=== PATIENT | male | born 1940 | race Caucasian/White ===

== ENCOUNTER 2021-08-08 06:31 | Emergency (ER) | payer MEDICARE, OTHER ==
--- NOTE | 2021-08-08 07:46 | CT ---
Head CT Technique: Multiple axial sections through the brain were obtained. Intravenous contrast was not utilized. Reconstructed coronal and sagittal images were obtained. Comparison: No prior intracranial imaging is available. Findings: Retention cyst is noted within the right maxillary sinus measuring 1.9 cm which is felt to be incidental. Ventricles along with basal cisterns and sulci over the convexities are mildly prominent. Minimal diminished density is noted within portions of the periventricular white matter which is most likely due to small vessel ischemic demyelination change. No other abnormal parenchymal densities are seen. No evidence of intracranial hemorrhage is seen. No midline shift or mass-effect is seen. Minimal atherosclerotic change is seen within the vertebral vessels and carotid siphon. Visualized mastoid sinuses are clear. Bone window settings show no acute calvarial abnormality. Small skin lesion is seen within the left upper parietal scalp which is incidental. Impression: 1. Senescent change as noted above. 2. Other findings which are believed to be incidental. 3. No acute intracranial abnormality is appreciated. Diagnostic code #2
--- NOTE | 2021-08-08 07:46 | CT ---
CT cervical spine Technique: Multiple axial sections were obtained from above C1 inferiorly through to the bottom of T3. Reconstructed coronal and sagittal images were obtained. Comparison: No prior cervical spine imaging is available. Findings: Mild disc space narrowing is noted at C2-3. Moderate disc space narrowing is noted at C3-4 and C4-5. Moderate narrowing is seen at C5-6. Severe narrowing is noted at C6-7. Minimal disc space narrowing is noted C7-T1 through T3-4. Scattered anterior endplate osteophytes are noted. Minimal posterior osteophytes are seen. Minimal ligamentum nuchal calcification is seen. Mild diffuse degenerative apophyseal change is present. Degenerative change is also noted between the dens and anterior arch of C1. Moderate left-sided neural foraminal stenosis is noted at C3-4 with severe right-sided neural foraminal stenosis at this level. Moderate right-sided neural foraminal stenosis is noted at C4-5. Moderate to marked left-sided neural foraminal stenosis is noted at C6-7. Degenerative joint space narrowing is noted within both temporomandibular joints. Retention cysts are noted within both maxillary sinuses. Other neural foramina are felt to be patent. No bony central canal stenosis is seen. No acute fracture or abnormal subluxation is seen. Impression: 1. Diffuse degenerative change as noted above. Minimal sinus findings. 2. No acute fracture or abnormal subluxation is seen on CT study of the cervical spine. Diagnostic code #2
--- NOTE | 2021-08-08 07:59 | EDM.PDOC ---
ED HPI GENERAL MEDICAL PROBLEM - General Chief Complaint: Head Injury Stated Complaint: SYNCOPE/HEAD LAC Time Seen by Provider: 08/08/21 07:20 Source of Information: Reports: Patient History Limitations: Reports: No Limitations - History of Present Illness INITIAL COMMENTS - FREE TEXT/NARRATIVE: Patient is an 81-year-old male presenting to the emergency room with a chief complaint of head injury after a fall. Patient states he had a syncopal episode earlier this morning. He describes the episode as feeling lightheaded and falling backwards after using the bathroom in his house. Did not experience any preceding chest pain, palpitations or nausea. He states he passed out again while trying to get up. Reports only minor injury to the head as well as loss of continence of stool. Patient states he has had a syncopal episode before many years ago which he thinks is related to the medication he was taking. Otherwise, patient states he has been sick for the past 1 week. He reports sore throat, cough, fatigue, body aches. Patient did receive Covid vaccine. Prevalence of Covid in the community is high at this period of time. Head Pain Score (Numeric/FACES): 6 - Related Data Allergies Allergy/AdvReac Type Severity Reaction Status Date / Time No Known Allergies Allergy Verified 08/08/21 06:47 Home Meds: Home Meds Benzonatate [Tessalon Perle] 100 mg PO BID #20 capsule 08/08/21 [Rx] Lisinopril/Hydrochlorothiazide [Lisinopril-Hctz 10-12.5 mg Tab] 1 tab PO DAILY 08/08/21 [History] Past Medical History Cardiovascular History: Reports: Hypertension - Past Surgical History GI Surgical History: Reports: Hernia Repair/Other Male Surgical History: Reports: Prostate Biopsy, Other (See Below) Other Male Surgeries/Procedures: kidney biopsy Social & Family History - Tobacco Use Tobacco Use Status *Q: Never Tobacco User - Caffeine Use Caffeine Use: Reports: Coffee - Recreational Drug Use Recreational Drug Use: No ED ROS GENERAL - Review of Systems Review Of Systems: See Below Free Text/Narrative/Comment: In addition to that documented in the HPI above, the additional ROS was obta ined: Constitutional: Denies fevers or chills Eyes: Denies vision changes ENMT: Per HPI CV: Denies chest pain Resp: Denies SOB GI: Denies vomiting or diarrhea : Denies painful urination MSK: Denies recent trauma Skin: Denies new rashes Neuro: Denies new numbness or tingling or weakness Endocrine: Denies unexpected weight loss Heme: Denies bleeding disorders ED EXAM, HEAD INJURY - Physical Exam Exam: See Below Text/Narrative:: I have reviewed the triage vital signs Const: Well nourished, well developed, appears stated age Eyes: Pupils Equal and reactive to light bilaterally, no conjunctival injection Head: Hematoma with no active bleeding to the occiput region. HENT: No signs of trauma or swelling, Neck supple without meningismus CV: Regular Rate Rhythm, Warm, well-perfused extremities RESP: Unlabored respiratory effort GI: soft, non-tender, non-distended, no masses MSK: No gross deformities appreciated Skin: Warm, dry. No rashes Neuro: Alert, production sound mixer II-XII grossly intact. Sensation and motor function of extremities grossly intact. Psych: Appropriate mood and affect. #1 Interpretation EKG Date: 08/08/21 Time: 06:59 Rhythm: NSR Rate (Beats/Min): 69 [place]: Normal P-Wave: Present QRS: Normal ST-T: Other (flattened t-waves anterior leads) QT: Normal #2 Interpretation EKG Date: 08/08/21 Time: 10:50 Rhythm: NSR Rate (Beats/Min): 72 [place]: Normal P-Wave: Present QRS: Normal ST-T: Other (flattened t-waves anterior lead) QT: Normal Comparison: No Change Course - Vital Signs Last Recorded V/S: Last Vital Signs Temp 36.3 C 08/08/21 06:51 Pulse 65 08/08/21 06:51 Resp 19 08/08/21 06:51 BP 127/58 L 08/08/21 06:51 Pulse Ox 92 L 08/08/21 06:51 - Orders/Labs/Meds Orders: Active Orders 24 hr Category Date Time Status Holter Monitor 48 Hours [RC] .PRN Care 08/08/21 12:03 Ordered EKG 12 Lead [EK] Stat Ther 08/08/21 06:53 Ordered Labs: Laboratory Tests 08/08/21 08/08/21 08/08/21 Range/Units 07:00 07:37 07:37 WBC 9.46 H (4.23-9.07) K/mm3 RBC 5.11 (4.63-6.08) M/mm3 Hgb 14.9 (13.7-17.5) gm/dl Hct 44.2 (40.1-51.0) % MCV 86.5 (79.0-92.2) fl MCH 29.2 (25.7-32.2) pg MCHC 33.7 (32.2-35.5) g/dl RDW Std Deviation 39.3 (35.1-43.9) fL Plt Count 184 (163-337) K/mm3 MPV 11.1 (9.4-12.3) fl Neut % (Auto) 87.7 H (34.0-67.9) % Lymph % (Auto) 4.0 L (21.8-53.1) % [place] % (Auto) 7.9 (5.3-12.2) % Eos % (Auto) 0.1 L (0.8-7.0) Baso % (Auto) 0.1 (0.1-1.2) % Neut # (Auto) 8.29 H (1.78-5.38) K/mm3 Lymph # (Auto) 0.38 L (1.32-3.57) K/mm3 Morrison # (Auto) 0.75 (0.30-0.82) K/mm3 Eos # (Auto) 0.01 L (0.04-0.54) K/mm3 Baso # (Auto) 0.01 (0.01-0.08) K/mm3 Sodium 133 L (136-145) mEq/L Potassium 3.9 (3.5-5.1) mEq/L Chloride 100 (98-107) mEq/L Carbon Dioxide 22 (21-32) mEq/L Anion Gap 14.9 (5-15) BUN 23 H (7-18) mg/dL Creatinine 1.8 H (0.7-1.3) mg/dL Est Cr Clr Drug Dosing 31.14 mL/min Estimated GFR (MDRD) 36 (>60) mL/min BUN/Creatinine Ratio 12.8 L (14-18) Glucose 129 H (70-99) mg/dL Calcium 8.3 L (8.5-10.1) mg/dL Total Bilirubin 0.5 (0.2-1.0) mg/dL AST 31 (15-37) U/L ALT 26 (16-63) U/L Alkaline Phosphatase 50 (46-116) U/L Troponin I < 0.017 (0.00-0.056) ng/mL Total Protein 7.0 (6.4-8.2) g/dl Albumin 3.5 (3.4-5.0) g/dl Globulin 3.5 gm/dL Albumin/Globulin Ratio 1.0 (1-2) SARS-CoV-2 RNA (ABISAI) Positive H (NEGATIVE) 08/08/21 Range/Units 11:20 WBC (4.23-9.07) K/mm3 RBC (4.63-6.08) M/mm3 Hgb (13.7-17.5) gm/dl Hct (40.1-51.0) % MCV (79.0-92.2) fl MCH (25.7-32.2) pg MCHC (32.2-35.5) g/dl RDW Std Deviation (35.1-43.9) fL Plt Count (163-337) K/mm3 MPV (9.4-12.3) fl Neut % (Auto) (34.0-67.9) % Lymph % (Auto) (21.8-53.1) % [place] % (Auto) (5.3-12.2) % Eos % (Auto) (0.8-7.0) Baso % (Auto) (0.1-1.2) % Neut # (Auto) (1.78-5.38) K/mm3 Lymph # (Auto) (1.32-3.57) K/mm3 [place] # (Auto) (0.30-0.82) K/mm3 Eos # (Auto) (0.04-0.54) K/mm3 Baso # (Auto) (0.01-0.08) K/mm3 Sodium (136-145) mEq/L Potassium (3.5-5.1) mEq/L Chloride (98-107) mEq/L Carbon Dioxide (21-32) mEq/L Anion Gap (5-15) BUN (7-18) mg/dL Creatinine (0.7-1.3) mg/dL Est Cr Clr Drug Dosing mL/min Estimated GFR (MDRD) (>60) mL/min BUN/Creatinine Ratio (14-18) Glucose (70-99) mg/dL Calcium (8.5-10.1) mg/dL Total Bilirubin (0.2-1.0) mg/dL AST (15-37) U/L ALT (16-63) U/L Alkaline Phosphatase (46-116) U/L Troponin I < 0.017 (0.00-0.056) ng/mL Total Protein (6.4-8.2) g/dl Albumin (3.4-5.0) g/dl Globulin gm/dL Albumin/Globulin Ratio (1-2) SARS-CoV-2 RNA (ABISAI) (NEGATIVE) Meds: Medications Discontinued Medications Generic Name Dose Route Start Last Admin Trade Name Freq PRN Reason Stop Dose Admin Lactated Ringer's 1,000 mls @ 1,000 mls/hr 08/08/21 08:59 08/08/21 09:15 Ringers, Lactated IV 08/08/21 09:58 1,000 mls/hr .BOLUS ONE Administration Departure - Departure Time of Disposition: 08:42 Disposition: Home, Self-Care 01 Clinical Impression: Scalp laceration, COVID-19 - Discharge Information Prescriptions: Benzonatate [Tessalon Perle] 100 mg PO BID #20 capsule Instructions: Head Injury, Adult, [id number] Referrals: Amador Gilbert MD [Primary Care Provider] - Forms: ED Department Discharge Sepsis Event Note (ED) - Evaluation Sepsis Screening Result: No Definite Risk - Focused Exam Vital Signs: Vital Signs Temp Pulse Resp BP Pulse Ox 08/08/21 06:51 36.3 C 65 19 127/58 L 92 L - My Orders Last 24 Hours: My Active Orders 08/08/21 12:03 Holter Monitor 48 Hours [RC] .PRN - Assessment/Plan Last 24 Hours: My Active Orders 08/08/21 12:03 Holter Monitor 48 Hours [RC] .PRN Assessment:: Patient is 81-year-old male presenting to the emergency room with a chief complaint of syncopal episode and head injury. Patient unremarkable ER course. Vital signs in the emergency room were normal. Patient had normal neurologic exam. Syncope sounds to be more orthostatic in nature. Also considered was cardiac etiology, vasovagal and seizure disorder. Laboratory studies EKG and CT of the head were ordered. Work-up unremarkable in the ER. Repeat EKG and troponin are also unchanged. Patient has a [place] syncope risk score of 0. Patient did have a second syncopal episode in the emergency room did not have any additional trauma. This is unwitnessed by staff patient was not on nurse monitoring at this time. I offered patient observation in the hospital and use shared decision-making model document risk and benefits of being discharged versus admission. Patient adamant that he would like to go home and not have any further testing in the emergency room. Patient did receive 1 L IV fluids for dehydration. Instructed follow-up for repeat kidney function check. Return precautions given residual. Patient agrees with plan of care.
[2021-08-08] MEDS ORDERED: Lactated Ringers 1,000 ML IV ONE (08:59)
== END 2021-08-08 13:20 | disposition home or self-care (01) ==
LOC: JD.ED 06:31
DX: S01.01XA Laceration without foreign body of scalp, initial encounter (principal); U07.1 COVID-19; I10 Essential (primary) hypertension; W18.39XA Other fall on same level, initial encounter; Y92.000 Kitchen of unspecified non-institutional (private) residence as the place of occurrence of the external cause
CPT/HCPCS: 12002; 36415; 70450; 72125; 80053; 84484; 85025; 93005; 93225; 93226; 99284; J7120; U0002

== ENCOUNTER 2021-08-11 15:19 | Inpatient (IN) | payer MEDICARE, OTHER ==
[2021-08-11] MEDS ORDERED: Loperamide 2 MG Cap PO ONE (15:51)
[2021-08-11] MEDS ORDERED: Sodium Chloride 0.9% 10 ML Syringe FLUSH PRN (15:51)
--- NOTE | 2021-08-11 15:54 | EDM.PDOC ---
<Siobhan Cary V - Last Filed: 08/11/21 21:32> ED HPI GENERAL MEDICAL PROBLEM - General Chief Complaint: Respiratory Problem Stated Complaint: LOW O2 SATS Time Seen by Provider: 08/11/21 15:47 Source of Information: Reports: Patient, RN Notes Reviewed History Limitations: Reports: No Limitations - History of Present Illness INITIAL COMMENTS - FREE TEXT/NARRATIVE: Patient is an 81-year-old male who presents to the ER for evaluation of his low oxygen saturations with a positive diagnosis of COVID-19. Patient states he has been sick for about 1 week. He has had a cough, diarrhea, shortness of breath, and presents today with low oxygen saturations of 86% on room air. Patient is working a little visibly harder to breathe. He still can get out sentences okay but they are pretty short in nature. Patient states he has no underlying cardiac or lung history. He has been taking his medications as prescribed from his regular care provider, Dr. Gilbert. Patient did get the [employer] vaccine. Headache Pain Score (Numeric/FACES): 4 Generalized Pain Score (Numeric/FACES): 5 - Related Data Allergies Allergy/AdvReac Type Severity Reaction Status Date / Time No Known Allergies Allergy Verified 08/13/21 12:55 Home Meds: Home Meds Benzonatate [Tessalon Perle] 100 mg PO BID #20 capsule 08/08/21 [Rx] Lisinopril/Hydrochlorothiazide [Lisinopril-Hctz 20-12.5 mg Tab] 2 tab PO DAILY 08/13/21 [History] Past Medical History Cardiovascular History: Reports: Hypertension - Past Surgical History GI Surgical History: Reports: Hernia Repair/Other Male Surgical History: Reports: Prostate Biopsy, Other (See Below) Other Male Surgeries/Procedures: kidney biopsy Social & Family History - Caffeine Use Caffeine Use: Reports: Coffee ED ROS GENERAL - Review of Systems Review Of Systems: Comprehensive ROS is negative, except as noted in HPI. ED EXAM, GENERAL - Physical Exam Exam: See Below Exam Limited By: No Limitations General Appearance: Alert, WD/WN, No Apparent Distress Respiratory/Chest: No Respiratory Distress, No Accessory Muscle Use, Chest Non- Tender, Decreased Breath Sounds (bilaterally), Rhonchi (minimal rhonchorous breath sounds bilaterally) Cardiovascular: Normal Peripheral Pulses, Regular Rate, Rhythm, No Edema Peripheral Pulses: 2+: Radial (L), Radial (R) GI/Abdominal: Normal Bowel Sounds, Soft, Non-Tender, No Distention, No Mass Extremities: Normal Inspection, Normal Capillary Refill Neurological: Alert, Oriented, Normal Cognition, No Motor/Sensory Deficits Psychiatric: Normal Affect, Normal Mood Skin Exam: Warm, Dry, Intact, Normal Color, No Rash Course - Re-Assessments/Exams Free Text/Narrative Re-Assessment/Exam: 08/11/21 15:54 Patient presents to the ER for the evaluation of his hypoxia likely secondary to COVID-19. Have ordered multitude of tests, and a chest x-ray along with some oxygen and one dose of loperamide for initial management. Patient states that he has been having quite a bit of diarrhea with this illness as well. 08/11/21 16:20 Was made aware by nursing, that the patient is requiring 6 L via nasal cannula at this time. She states that his O2 sats are hanging around 86 or 87. We will go ahead and watch his oxygenation status at this time, before we go further with any increased oxygen needs. Patient is slightly tachycardic as well. 08/11/21 19:00 Labs have resulted, the patient's white count is mildly elevated at 9.66 with 89% neutrophils on the auto differential. CMP is impressive for an elevated creatinine of 1.8, low GFR 36. CRP markedly elevated at 26.2. Patient's D- dimer is elevated at 1.32. I have called [facility] to see if they would possibly have a hospital bed for this patient as I know we are on diversion at this time. They were going to do some checking and get back to me. Patient has been given remdesivir and dexamethasone for ongoing COVID-19 management. 08/11/21 20:40 I was able to speak with [facility] in [place], and [facility] in [place] and both hospitals are on diversion for any MedSurg transfers or Covid patients at this time. I did call [facility] and they are not excepting lateral transfers, I was made aware that [facility] might have a bed earlier at today's disposal but they have subsequently feel there are beds as well. We are on diversion at this time. So did call the [facility] transfer center to try to help place this patient. They were going to start checking around. 08/11/21 21:32 I did go in to assess the patient again however he is sleeping and we will go ahead and let him sleep at this time. Nursing staff and overnight doctor, Dr. Kapoor is aware that the patient will likely have to stay here overnight for a prolonged ER stay due to having nowhere to place the patient in a bed. Departure - Departure Time of Disposition: 20:33 Disposition: Admitted As Inpatient 66 Condition: Good Clinical Impression: COVID-19, Hypoxia - Discharge Information <Reuben Albright - Last Filed: 08/12/21 13:55> Course - Re-Assessments/Exams Free Text/Narrative Re-Assessment/Exam: 08/12/21 08:30. Have assumed care from Dr Kapoor after change of shift. I agree with hx and exam initially done by Siobhan Cary last evening. Still waiting for a bed to open up for him somewhere. [facility] is working on it. He is doing OK. His sats did drop a little bit during the night so his oxygen was increased to 15 L NRB. 09:45. RT is going to switch him to high flow as soon as she can get a unit sterilized and ready for him. CXR shows mild bilat patchy infiltrates compatable with covid pneumonia. 08/12/21 13:37 He has been eating, drinking fluids. Sats 92 to 93 % 40 L high flow NC, 70 % FIo2. Still waiting for a bed to open up somewhere. 08/12/21 13:55 <Damian Kapoor - Last Filed: 08/14/21 08:57> Course - Vital Signs Last Recorded V/S: Last Vital Signs Temp 97.7 F 08/14/21 03:23 Pulse 66 08/14/21 03:23 Resp 21 H 08/14/21 06:00 BP 124/90 08/14/21 03:23 Pulse Ox 91 L 08/14/21 08:46 - Orders/Labs/Meds Orders: Active Orders 24 hr Category Date Time Status Patient Status [ADT] Routine ADT 08/13/21 11:53 Active Medication Orders Acetaminophen (Acetaminophen 325 Mg Tab) 650 mg PO Q4H PRN PRN Reason: Pain (Mild 1-3)/fever Last Admin: 08/13/21 22:23 Dose: 650 mg Documented by: Admin: 08/13/21 13:29 Dose: 650 mg Documented by: ROSY Albuterol (Albuterol 6.7 Gm Inhaler) 0 gm INH Q2H PRN PRN Reason: SOB/wheezing Albuterol/Ipratropium (Albuterol/Ipratropium 3.0-0.5 Mg/3 Ml Neb Soln) 3 ml NEB QIDRT PRN PRN Reason: Shortness Of Breath/wheezing Last Admin: 08/14/21 08:45 Dose: 3 ml Documented by: Admin: 08/14/21 05:33 Dose: 3 ml Documented by: Admin: 08/13/21 20:16 Dose: 3 ml Documented by: ORLIN Benzonatate (Benzonatate 100 Mg Cap) 100 mg PO TID PRN PRN Reason: Cough Last Admin: 08/13/21 22:24 Dose: 100 mg Documented by: TERESITA Dexamethasone (Dexamethasone 4 Mg Tab) 6 mg PO Q24H [facility] Stop: 08/20/21 17:01 Last Admin: 08/13/21 18:37 Dose: 6 mg Documented by: JERICHO Enoxaparin Sodium (Enoxaparin 40 Mg/0.4 Ml Syringe) 40 mg SUBCUT BEDTIME [facility] Last Admin: 08/13/21 22:25 Dose: 40 mg Documented by: TERESITA Famotidine (Famotidine 20 Mg Tab) 20 mg PO BEDTIME [facility] Last Admin: 08/13/21 22:25 Dose: 20 mg Documented by: TERESITA Guaifenesin (Guaifenesin 600 Mg Tab.Er) 600 mg PO BID [facility] Last Admin: 08/14/21 08:30 Dose: 600 mg Documented by: Admin: 08/13/21 22:24 Dose: 600 mg Documented by: TERESITA Remdesivir 100 mg/ Sodium (Chloride) 100 mls @ 100 mls/hr IV Q24H [facility] Stop: 08/15/21 17:59 Last Admin: 08/13/21 18:37 Dose: 100 mls/hr Documented by: JERICHO Ondansetron HCl (Ondansetron 4 Mg/2 Ml Sdv) 4 mg IV Q6H PRN PRN Reason: Nausea/Vomiting Senna/Docusate Sodium (Docusate Sodium/Sennosides 50-8.6 Mg Tab) 1 tab PO BID PRN PRN Reason: Constipation Last Admin: 08/14/21 08:30 Dose: 1 tab Documented by: KAREEM Sodium Chloride (Sodium Chloride 0.9% 10 Ml Syringe) 10 ml FLUSH ASDIRECTED PRN PRN Reason: Keep Vein Open Last Admin: 08/11/21 16:21 Dose: 10 ml Documented by: KRISTIAN Zinc Sulfate (Zinc Sulfate 220 Mg Cap) 220 mg PO DAILY [facility] Last Admin: 08/14/21 08:30 Dose: 220 mg Documented by: KAREEM Labs: Laboratory Tests 08/11/21 08/11/21 08/11/21 Range/Units 16:17 16:17 16:17 WBC 9.66 H (4.23-9.07) K/mm3 RBC 5.29 (4.63-6.08) M/mm3 Hgb 15.5 (13.7-17.5) gm/dl Hct 45.1 (40.1-51.0) % MCV 85.3 (79.0-92.2) fl MCH 29.3 (25.7-32.2) pg MCHC 34.4 (32.2-35.5) g/dl RDW Std Deviation 39.9 (35.1-43.9) fL Plt Count 206 (163-337) K/mm3 MPV 10.7 (9.4-12.3) fl Neut % (Auto) 89.1 H (34.0-67.9) % Lymph % (Auto) 4.6 L (21.8-53.1) % [place] % (Auto) 6.0 (5.3-12.2) % Eos % (Auto) 0 L (0.8-7.0) Baso % (Auto) 0.1 (0.1-1.2) % Neut # (Auto) 8.61 H (1.78-5.38) K/mm3 Lymph # (Auto) 0.44 L (1.32-3.57) K/mm3 [place] # (Auto) 0.58 (0.30-0.82) K/mm3 Eos # (Auto) 0.00 L (0.04-0.54) K/mm3 Baso # (Auto) 0.01 (0.01-0.08) K/mm3 D-Dimer, Quantitative 1.32 H (0.19-0.50) mg/L Sodium (136-145) mEq/L Potassium (3.5-5.1) mEq/L Chloride (98-107) mEq/L Carbon Dioxide (21-32) mEq/L Anion Gap (5-15) BUN (7-18) mg/dL Creatinine (0.7-1.3) mg/dL Est Cr Clr Drug Dosing mL/min Estimated GFR (MDRD) (>60) mL/min BUN/Creatinine Ratio (14-18) Glucose (70-99) mg/dL Calcium (8.5-10.1) mg/dL Magnesium (1.8-2.4) mg/dL Total Bilirubin (0.2-1.0) mg/dL Direct Bilirubin (0.0-0.2) mg/dl Indirect Bilirubin AST (15-37) U/L ALT (16-63) U/L Alkaline Phosphatase (46-116) U/L C-Reactive Protein 26.2 H* (<1.0) mg/dL Total Protein (6.4-8.2) g/dl Albumin (3.4-5.0) g/dl Globulin gm/dL Albumin/Globulin Ratio (1-2) 08/11/21 08/12/21 Range/Units 16:17 19:08 WBC (4.23-9.07) K/mm3 RBC (4.63-6.08) M/mm3 Hgb (13.7-17.5) gm/dl Hct (40.1-51.0) % MCV (79.0-92.2) fl MCH (25.7-32.2) pg MCHC (32.2-35.5) g/dl RDW Std Deviation (35.1-43.9) fL Plt Count (163-337) K/mm3 MPV (9.4-12.3) fl Neut % (Auto) (34.0-67.9) % Lymph % (Auto) (21.8-53.1) % [place] % (Auto) (5.3-12.2) % Eos % (Auto) (0.8-7.0) Baso % (Auto) (0.1-1.2) % Neut # (Auto) (1.78-5.38) K/mm3 Lymph # (Auto) (1.32-3.57) K/mm3 [place] # (Auto) (0.30-0.82) K/mm3 Eos # (Auto) (0.04-0.54) K/mm3 Baso # (Auto) (0.01-0.08) K/mm3 D-Dimer, Quantitative (0.19-0.50) mg/L Sodium 138 (136-145) mEq/L Potassium 3.3 L (3.5-5.1) mEq/L Chloride 97 L (98-107) mEq/L Carbon Dioxide 28 (21-32) mEq/L Anion Gap 16.3 H (5-15) BUN 37 H (7-18) mg/dL Creatinine 1.8 H (0.7-1.3) mg/dL Est Cr Clr Drug Dosing 31.14 mL/min Estimated GFR (MDRD) 36 (>60) mL/min BUN/Creatinine Ratio 20.6 H (14-18) Glucose 114 H (70-99) mg/dL Calcium 8.0 L (8.5-10.1) mg/dL Magnesium 1.9 (1.8-2.4) mg/dL Total Bilirubin 0.6 0.4 (0.2-1.0) mg/dL Direct Bilirubin 0.10 (0.0-0.2) mg/dl Indirect Bilirubin 0.30 AST 63 H 63 H (15-37) U/L ALT 42 39 (16-63) U/L Alkaline Phosphatase 35 L 36 L (46-116) U/L C-Reactive Protein (<1.0) mg/dL Total Protein 7.1 6.2 L (6.4-8.2) g/dl Albumin 2.9 L 2.4 L (3.4-5.0) g/dl Globulin 4.2 3.8 gm/dL Albumin/Globulin Ratio 0.7 L 0.6 L (1-2) Meds: Medications Generic Name Dose Route Start Last Admin Trade Name Freq PRN Reason Stop Dose Admin Acetaminophen 650 mg 08/13/21 12:44 08/13/21 22:23 Acetaminophen 325 Mg Tab PO 650 mg Q4H PRN Administration Pain (Mild 1-3)/fever Albuterol 0 gm 08/13/21 12:44 Albuterol 6.7 Gm Inhaler INH Q2H PRN SOB/wheezing Albuterol/Ipratropium 3 ml 08/13/21 12:44 08/14/21 08:45 Albuterol/Ipratropium 3.0-0.5 Mg/3 Ml Neb Soln NEB 3 ml QIDRT PRN Administration Shortness Of Breath/wheezing Benzonatate 100 mg 08/13/21 13:14 08/13/21 22:24 Benzonatate 100 Mg Cap PO 100 mg TID PRN Administration Cough Dexamethasone 6 mg 08/13/21 17:00 08/13/21 18:37 Dexamethasone 4 Mg Tab PO 08/20/21 17:01 6 mg Q24H [facility] Administration Enoxaparin Sodium 40 mg 08/13/21 21:00 08/13/21 22:25 Enoxaparin 40 Mg/0.4 Ml Syringe SUBCUT 40 mg BEDTIME [facility] Administration Famotidine 20 mg 08/13/21 21:00 08/13/21 22:25 Famotidine 20 Mg Tab PO 20 mg BEDTIME [facility] Administration Guaifenesin 600 mg 08/13/21 21:00 08/14/21 08:30 Guaifenesin 600 Mg Tab.Er PO 600 mg BID [facility] Administration Remdesivir 100 mg/ Sodium 100 mls @ 100 mls/hr 08/13/21 17:00 08/13/21 18:37 Chloride IV 08/15/21 17:59 100 mls/hr Q24H [facility] Administration Ondansetron HCl 4 mg 08/13/21 12:44 Ondansetron 4 Mg/2 Ml Sdv IV Q6H PRN Nausea/Vomiting Senna/Docusate Sodium 1 tab 08/13/21 12:44 08/14/21 08:30 Docusate Sodium/Sennosides 50-8.6 Mg Tab PO 1 tab BID PRN Administration Constipation Sodium Chloride 10 ml 08/11/21 15:51 08/11/21 16:21 Sodium Chloride 0.9% 10 Ml Syringe FLUSH 10 ml ASDIRECTED PRN Administration Keep Vein Open Zinc Sulfate 220 mg 08/14/21 09:00 08/14/21 08:30 Zinc Sulfate 220 Mg Cap PO 220 mg DAILY [facility] Administration Discontinued Medications Generic Name Dose Route Start Last Admin Trade Name Sunday PRN Reason Stop Dose Admin Albuterol/Ipratropium 3 ml 08/12/21 04:09 08/12/21 04:19 Albuterol/Ipratropium 3.0-0.5 Mg/3 Ml Neb Soln NEB 08/12/21 04:10 3 ml ONETIME ONE Administration Dexamethasone 6 mg 08/11/21 17:12 08/11/21 17:42 Dexamethasone 10 Mg/Ml Sdv IVPUSH 08/11/21 17:13 6 mg ONETIME ONE Administration Dexamethasone 6 mg 08/12/21 19:00 08/12/21 19:51 Dexamethasone 10 Mg/Ml Sdv IVPUSH 08/15/21 19:01 6 mg Q24H [facility] Administration Hydrochlorothiazide 12.5 mg 08/12/21 19:00 08/13/21 09:25 Hydrochlorothiazide 12.5 Mg Cap PO 08/15/21 09:01 12.5 mg DAILY [facility] Administration Remdesivir 200 mg/ Sodium 250 mls @ 250 mls/hr 08/11/21 17:12 08/11/21 17:42 Chloride IV 08/11/21 17:13 250 mls/hr ONETIME ONE Administration Remdesivir 100 mg/ Sodium 100 mls @ 100 mls/hr 08/12/21 19:00 08/12/21 19:52 Chloride IV 08/15/21 19:59 100 mls/hr Q24H [facility] Administration Influenza Virus Vaccine 60 mcg 08/13/21 13:00 Flu Vacc [id number](65up)/Mf59c/Pf 60 Mcg/0.5 Ml Syringe IM 08/13/21 13:01 .ONCE ONE Lisinopril 10 mg 08/12/21 19:00 08/13/21 09:25 Lisinopril 10 Mg Tab PO 08/15/21 09:01 10 mg DAILY [facility] Administration Loperamide HCl 4 mg 08/11/21 15:51 08/11/21 16:20 Loperamide 2 Mg Cap PO 08/11/21 15:52 4 mg ONETIME ONE Administration Polyethylene Glycol 17 gm 08/13/21 17:47 08/13/21 18:36 Polyethylene Glycol 3350 Powder 17 Gm Packet PO 08/13/21 17:48 17 gm ONETIME ONE Administration Potassium Chloride 40 meq 08/13/21 15:00 08/13/21 22:24 Potassium Chloride 20 Meq Tab.Er PO 08/14/21 09:01 40 meq BID [facility]ER Administration - Re-Assessments/Exams Free Text/Narrative Re-Assessment/Exam: 08/12/21 06:39 The patient's oxygen saturations did drop to the low 80s. I had my nurse put him on a nonrebreather and the nasal cannula and he came up to the 90s. It is change of shift Dr Albright to take over. I called the transfer center again and he is still on the list to get a bed. Departure - Departure Time of Disposition: 08:55
[2021-08-11] MEDS ORDERED: REMDESIVIR 200 MG in Sodium Chloride 0.9% 250 ML IV ONE (17:12)
[2021-08-11] MEDS ORDERED: Dexamethasone 10 MG/ML SDV IVPUSH ONE (17:12)
[2021-08-12] MEDS ORDERED: Albuterol/Ipratropium 3.0-0.5 MG/3 ML Neb Soln NEB ONE (04:09)
--- NOTE | 2021-08-12 07:26 | CR ---
Chest: Frontal view of the chest was obtained. Comparison: No prior chest imaging is available. Patchy increased density is seen within the left mid and lower lung. Mild increased density is noted within the right upper lung. Heart size and mediastinum are within normal limits for technique. Bony structures show mild degenerative change within the spine. Osteopenia is noted. Gas is noted within the visualized bowel which is slightly prominent but shows no findings of obstruction. Impression: 1. Patchy areas of increased density within both sides of the chest. Difficult to completely exclude COVID pneumonia. Please correlate with patient's sypmtoms. 2. Other incidental findings are felt to be present as described above. Diagnostic code #3
[2021-08-12] MEDS ORDERED: Dexamethasone 10 MG/ML SDV IVPUSH SCH (19:00)
[2021-08-12] MEDS ORDERED: REMDESIVIR 100 MG in Sodium Chloride 0.9% 100 ML IV SCH (19:00)
[2021-08-12] MEDS: Hydrochlorothiazide 12.5 MG Cap PO SCH (19:50)
[2021-08-12] MEDS: Lisinopril 10 MG Tab PO SCH (19:50)
[2021-08-13] MEDS: Lisinopril 10 MG Tab PO SCH (09:25)
[2021-08-13] MEDS: Hydrochlorothiazide 12.5 MG Cap PO SCH (09:25)
[2021-08-13] MEDS ORDERED: Ondansetron 4 MG/2 ML SDV IV PRN (12:44)
[2021-08-13] MEDS ORDERED: Albuterol 6.7 GM Inhaler INH PRN (12:44)
--- NOTE | 2021-08-13 12:54 | PCM.HP.2 ---
H&P History of Present Illness - General Date of Service: 08/13/21 Admit Problem/Dx: Admission Diagnosis/Problem Admission Diagnosis/Problem Hypoxia Source of Information: Patient, Old Records, Provider, RN, RN Notes Reviewed History Limitations: Reports: No Limitations - History of Present Illness Initial Comments - Free Text/Narative: This is an 81-year-old male who presented to ED on 08/11/2021 with low oxygen saturations and known positive COVID-19 diagnosis. Patient reports he been sick for about a week and noted cough, diarrhea, shortness of breath, and oxygen sat urations of 86% on room air. He did receive the Pfizer vaccine. In the ED temp was noted to be 96.5. Pulse is 102. Respirations 32. Blood pressure 120/72. Pulse ox is 94% on oxygen. He was requiring 6 L with saturations of 86 to 87%. Labs are obtained showing a WBC of 9.66. Hemoglobin 15.5. Platelet count 206,000. Neutrophils are elevated 89.1%. D-dimer is 1.32. CRP is 26.2. Sodium is 138. Potassium is low at 3.3. Chloride 97. Carbon dioxide 28. Anion gap is 16.3. BUN is 37. Creatinine 1.8. GFR is 36. Glucose is 114. Calcium is 8.0. Magnesium is 1.9. Total bilirubin 0.6. AST is 63, ALT 42, alkaline phosphatase 35. Albumin is 2.9. Total protein 7.1. He is given dexamethasone and remdesivir in the ED. Patient was requiring admission and unfortunately our facility and every other facility in the state were on diversion. Patient remained for approximately 2 days in the emergency room with worsening saturations. He was shifted to a nonrebreather and ultimately started on high flow oxygen. Chest x-ray is obtained showing patchy areas of increased density within both sides of the chest. Difficult to completely exclude Covid pneumonia. Please correlate with patient's symptoms. Other findings are noted to be incidental. Ultimately a bed in our facility does open up and the patient is admitted to the medical surgical floor inpatient with telemetry for further management of his COVID-19 pneumonia and hypoxia. He carries a history of hypertension. He is a full code. His PCP is Dr. Lugo. Headache Pain Score (Numeric/FACES): 4 Generalized Pain Score (Numeric/FACES): 5 - Related Data Allergies/Adverse Reactions: Allergies Allergy/AdvReac Type Severity Reaction Status Date / Time No Known Allergies Allergy Verified 08/13/21 12:55 Home Medications: Home Meds Benzonatate [Tessalon Perle] 100 mg PO BID #20 capsule 08/08/21 [Rx] Lisinopril/Hydrochlorothiazide [Lisinopril-Hctz 20-12.5 mg Tab] 2 tab PO DAILY 08/13/21 [History] Past Medical History Cardiovascular History: Reports: Hypertension - Infectious Disease History Infectious Disease History: Reports: Novel Coronavirus - Past Surgical History GI Surgical History: Reports: Hernia Repair/Other Male Surgical History: Reports: Prostate Biopsy, Other (See Below) Other Male Surgeries/Procedures: kidney biopsy Social & Family History - Tobacco Use Tobacco Use Status *Q: Never Tobacco User Second Hand Smoke Exposure: No - Caffeine Use Caffeine Use: Reports: Coffee - Recreational Drug Use Recreational Drug Use: No H&P Review of Systems - Review of Systems: Review Of Systems: See Below General: Reports: Malaise, Weakness, Fatigue. Denies: Fever, Chills HEENT: Reports: No Symptoms. Denies: Headaches, Sore Throat Pulmonary: Reports: Shortness of Breath, Wheezing, Cough, Sputum. Denies: Pleuritic Chest Pain Cardiovascular: Reports: Dyspnea on Exertion. Denies: Chest Pain, Palpitations, Edema Gastrointestinal: Reports: Diarrhea. Denies: Abdominal Pain, Constipation, Nausea, Vomiting Genitourinary: Reports: No Symptoms. Denies: Pain Musculoskeletal: Reports: No Symptoms Skin: Reports: No Symptoms. Denies: Cyanosis Psychiatric: Reports: No Symptoms. Denies: Confusion Neurological: Reports: Difficulty Walking, Weakness. Denies: Confusion, Dizziness, Headache, Numbness, Pre-Existing Deficit, Syncope, Tingling, Gait Disturbance Hematologic/Lymphatic: Reports: No Symptoms Immunologic: Reports: No Symptoms Exam - Exam Exam: See Below - Vital Signs Vital Signs: Last Vital Signs Temp 96.5 F L 08/12/21 09:50 Pulse 102 H 08/12/21 09:50 Resp 32 H 08/12/21 09:50 BP 117/85 08/13/21 09:25 Pulse Ox 95 08/12/21 16:00 Weight: 191 lb 8 oz - Exam Quality Assessment: Supplemental Oxygen, DVT Prophylaxis. No: Urinary Catheter General: Alert, Oriented, Cooperative, Mild Distress (looks ill ) HEENT: Conjunctiva Clear, EACs Clear, Mucosa Moist & Grill, Posterior Pharynx Clear Neck: Supple, Trachea Midline Lungs: Normal Respiratory Effort, Decreased Breath Sounds, Rhonchi, Wheezing Cardiovascular: Regular Rate, Regular Rhythm GI/Abdominal Exam: Normal Bowel Sounds, Soft, Non-Tender, No Distention (Male) Exam: Deferred Rectal (Males) Exam: Deferred Back Exam: Normal Inspection, Full Range of Motion Extremities: Normal Inspection, Normal Range of Motion, Non-Tender, No Pedal Edema, Normal Capillary Refill Peripheral Pulses: 2+: Radial (L), Radial (R), Dorsalis Pedis (L), Dorsalis Pedis (R) Skin: Warm, Dry, Intact Neurological: Cranial Nerves Intact (Grossly ) Neuro Extensive - Mental Status: Alert, Oriented x3, Normal Mood/Affect - Patient Data Lab Results Last 24 hrs: Laboratory Results - last 24 hr 08/12/21 Range/Units 19:08 Total Bilirubin 0.4 (0.2-1.0) mg/dL Direct Bilirubin 0.10 (0.0-0.2) mg/dl Indirect Bilirubin 0.30 AST 63 H (15-37) U/L ALT 39 (16-63) U/L Alkaline Phosphatase 36 L (46-116) U/L Total Protein 6.2 L (6.4-8.2) g/dl Albumin 2.4 L (3.4-5.0) g/dl Globulin 3.8 gm/dL Albumin/Globulin Ratio 0.6 L (1-2) Result Diagrams: 08/13/21 13:16 08/13/21 13:16 Sepsis Event Note - Focused Exam Vital Signs: Vital Signs BP 08/13/21 09:25 117/85 - Problem List (1) COVID-19 SNOMED Code(s): 610231162 ICD Code: U07.1 - COVID-19 Status: Acute Priority: High Current Visit: Yes (2) Hypoxia SNOMED Code(s): 940483738 ICD Code: R09.02 - HYPOXEMIA Status: Acute Priority: High Current Visit: Yes (3) Scalp laceration SNOMED Code(s): 077860852 ICD Code: S01.01XA - LACERATION WITHOUT FOREIGN BODY OF SCALP, INITIAL ENCOUNTER Status: Chronic Priority: Medium Current Visit: Yes (4) Hypokalemia SNOMED Code(s): 89529421 ICD Code: E87.6 - HYPOKALEMIA Status: Acute Priority: High Current Visit: Yes (5) HTN (hypertension) SNOMED Code(s): 85089725 ICD Code: I10 - ESSENTIAL (PRIMARY) HYPERTENSION Status: Acute Priority: High Current Visit: Yes Qualifiers: Hypertension type: unspecified Qualified Code(s): I10 - Essential (primary) hypertension (6) Elevated d-dimer SNOMED Code(s): 789484298 ICD Code: R79.89 - OTHER SPECIFIED ABNORMAL FINDINGS OF BLOOD CHEMISTRY Status: Acute Priority: High Current Visit: Yes (7) Elevated C-reactive protein SNOMED Code(s): 641375326920778 ICD Code: R79.82 - ELEVATED C-REACTIVE PROTEIN (CRP) Status: Acute Priority: High Current Visit: Yes (8) COVID-19 vaccine series completed SNOMED Code(s): 549843132, 105510334 ICD Code: Z92.29 - PERSONAL HISTORY OF OTHER DRUG THERAPY Status: Chronic Priority: Medium Current Visit: Yes Problem List Initiated/Reviewed/Updated: Yes Orders Last 24hrs: Active Orders 24 hr Category Date Time Status Patient Status [ADT] Routine ADT 08/13/21 11:53 Active Cardiac Monitoring [RC] CONTINUOUS Care 08/13/21 12:45 Ordered Height and Weight [RC] DAILY Care 08/13/21 12:44 Ordered Intake and Output [RC] DAILY Care 08/13/21 12:45 Ordered Nurse Communication: Isolation [RC] ASDIRECTED Care 08/13/21 12:47 Ordered Oxygen Therapy [RC] ASDIRECTED Care 08/13/21 12:44 Ordered Positioning, Patient [RC] ASDIRECTED Care 08/13/21 12:50 Ordered Pulse Oximetry [RC] CONTINUOUS Care 08/13/21 12:45 Ordered RT Aerosol Therapy [RC] ASDIRECTED Care 08/13/21 12:46 Ordered RT Incentive Spirometry [RC] ASDIRECTED Care 08/13/21 12:44 Ordered Up With Assistance [RC] ASDIRECTED Care 08/13/21 12:45 Ordered Vaccine to be Administered/Admin Charge [RC] ASDIRECTED Care 08/13/21 12:45 Active Vital Signs [RC] Q6H Care 08/13/21 12:44 Ordered Consult to Case Management/County Director [CONS] Cons 08/13/21 12:44 Ordered Routine OT Evaluation and Treatment [CONS] Routine Cons 08/13/21 12:46 Ordered PT Evaluation and Treatment [CONS] Routine Cons 08/13/21 12:46 Ordered Respiratory Care Assess and Treatment [CONS] Routine Cons 08/13/21 12:46 Ordered Heart Healthy Diet [DIET] Diet 08/13/21 Dinner Ordered C-REACTIVE PROTEIN [CHEM] AM Lab 08/14/21 05:11 Ordered C-REACTIVE PROTEIN [CHEM] AM Lab 08/15/21 05:11 Ordered C-REACTIVE PROTEIN [CHEM] AM Lab 08/16/21 05:11 Ordered C-REACTIVE PROTEIN [CHEM] AM Lab 08/17/21 05:11 Ordered C-REACTIVE PROTEIN [CHEM] Routine Lab 08/13/21 12:48 Ordered CBC WITH AUTO DIFF [HEME] AM Lab 08/14/21 05:11 Ordered CBC WITH AUTO DIFF [HEME] AM Lab 08/15/21 05:11 Ordered CBC WITH AUTO DIFF [HEME] AM Lab 08/16/21 05:11 Ordered CBC WITH AUTO DIFF [HEME] AM Lab 08/17/21 05:11 Ordered CBC WITH AUTO DIFF [HEME] Routine Lab 08/13/21 12:48 Ordered CMP [COMPREHENSIVE METABOLIC PN,CMP] [CHEM] Routine Lab 08/13/21 12:52 Ordered COMPREHENSIVE METABOLIC PN,CMP [CHEM] AM Lab 08/14/21 05:11 Ordered COMPREHENSIVE METABOLIC PN,CMP [CHEM] AM Lab 08/15/21 05:11 Ordered COMPREHENSIVE METABOLIC PN,CMP [CHEM] AM Lab 08/16/21 05:11 Ordered COMPREHENSIVE METABOLIC PN,CMP [CHEM] AM Lab 08/17/21 05:11 Ordered DD [D-DIMER QUANTITATIVE] [COAG] Q48H Lab 08/14/21 05:11 Ordered DD [D-DIMER QUANTITATIVE] [COAG] Q48H Lab 08/16/21 05:11 Ordered DD [D-DIMER QUANTITATIVE] [COAG] Q48H Lab 08/18/21 05:11 Ordered MAGNESIUM [CHEM] AM Lab 08/14/21 05:11 Ordered MAGNESIUM [CHEM] AM Lab 08/15/21 05:11 Ordered MAGNESIUM [CHEM] AM Lab 08/16/21 05:11 Ordered MAGNESIUM [CHEM] AM Lab 08/17/21 05:11 Ordered MAGNESIUM [CHEM] Routine Lab 08/13/21 12:48 Ordered PROCALCITONIN [REF] Routine Lab 08/13/21 12:49 Ordered Acetaminophen [TylenoL] Med 08/13/21 12:44 Ordered 650 mg PO Q4H PRN Albuterol [Proventil HFA] Med 08/13/21 12:44 Ordered See Dose Instructions INH Q2H PRN Albuterol/Ipratropium [DuoNeb 3.0-0.5 MG/3 ML] Med 08/13/21 12:44 Ordered 3 ml NEB QIDRT PRN Docusate Sodium/Sennosides [Senna Plus] Med 08/13/21 12:44 Ordered 1 tab PO BID PRN Enoxaparin [Lovenox] Med 08/13/21 09:00 Ordered 40 mg SUBCUT DAILY FLU Vacc [id number](65UP)/MF59C/PF [Fluad Quad [id number] Med 08/13/21 13:00 Once SYRINGE] 60 mcg IM .ONCE ONE Famotidine [Pepcid] Med 08/13/21 21:00 Ordered 20 mg PO BID Ondansetron [Zofran] Med 08/13/21 12:44 Ordered 4 mg IV Q6H PRN Remdesivir 100 mg Med 08/13/21 16:50 Ordered Sodium Chloride 0.9% [Normal Saline] 100 ml IV Q24H Zinc Sulfate [Zincate] Med 08/14/21 09:00 Ordered 220 mg PO DAILY dexAMETHasone Med 08/13/21 16:50 Ordered 6 mg PO DAILY Isolation [COMM] Routine Oth 08/13/21 12:44 Ordered RT Oxygen High Flow [RESPCARE] Urgent Oth 08/12/21 12:36 Active Medication Orders Acetaminophen (Acetaminophen 325 Mg Tab) 650 mg PO Q4H PRN PRN Reason: Pain (Mild 1-3)/fever Albuterol (Albuterol 6.7 Gm Inhaler) 0 gm INH Q2H PRN PRN Reason: SOB/wheezing Albuterol/Ipratropium (Albuterol/Ipratropium 3.0-0.5 Mg/3 Ml Neb Soln) 3 ml NEB QIDRT PRN PRN Reason: Shortness Of Breath/wheezing Dexamethasone (Dexamethasone 4 Mg Tab) 6 mg PO DAILY SANDER Stop: 08/20/21 09:01 Enoxaparin Sodium (Enoxaparin 40 Mg/0.4 Ml Syringe) 40 mg SUBCUT BEDTIME [facility] Famotidine (Famotidine 20 Mg Tab) 20 mg PO BEDTIME [facility] Remdesivir 100 mg/ Sodium (Chloride) 100 mls @ 100 mls/hr IV Q24H [facility] Stop: 08/15/21 17:49 Influenza Virus Vaccine (Flu Vacc [id number](65up)/Mf59c/Pf 60 Mcg/0.5 Ml Syringe) 60 mcg IM .ONCE ONE Stop: 08/13/21 13:01 Ondansetron HCl (Ondansetron 4 Mg/2 Ml Sdv) 4 mg IV Q6H PRN PRN Reason: Nausea/Vomiting Senna/Docusate Sodium (Docusate Sodium/Sennosides 50-8.6 Mg Tab) 1 tab PO BID PRN PRN Reason: Constipation Sodium Chloride (Sodium Chloride 0.9% 10 Ml Syringe) 10 ml FLUSH ASDIRECTED PRN PRN Reason: Keep Vein Open Last Admin: 08/11/21 16:21 Dose: 10 ml Documented by: KRISTIAN Zinc Sulfate (Zinc Sulfate 220 Mg Cap) 220 mg PO DAILY [facility] Assessment/Plan Comment:: Admission assessment - 08/13/2021 * This is an 81-year-old male who presented to ED on 08/11/2021 with low oxygen saturations and known positive COVID-19 diagnosis * History of hypertension * Reports he been sick for about a week and noted cough, diarrhea, shortness of breath, and oxygen saturations of 86% on room air. * He did receive the Pfizer vaccine. * He was requiring 6 L with saturations of 86 to 87%. * Labs are obtained: * WBC of 9.66. * Hemoglobin 15.5. * Platelet count 206,000. * Neutrophils are elevated 89.1%. * D-dimer is 1.32. * CRP is 26.2. * Sodium is 138. * Potassium is low at 3.3. * Chloride 97. * Carbon dioxide 28. * Anion gap is 16.3. * BUN is 37. Creatinine 1.8. GFR is 36. * Glucose is 114. * Calcium is 8.0. * Magnesium is 1.9. * Total bilirubin 0.6. * AST is 63, ALT 42, alkaline phosphatase 35. * Albumin is 2.9. * Total protein 7.1. * He is given dexamethasone and remdesivir in the ED. * Chest x-ray is obtained showing patchy areas of increased density within both sides of the chest. Difficult to completely exclude Covid pneumonia. Please correlate with patient's symptoms. Other findings are noted to be incidental. * Patient was requiring admission and unfortunately our facility and every other facility in the state were on diversion. * Remained for approximately 2 days in the emergency room with worsening saturations. * He was shifted to a nonrebreather and ultimately started on high flow oxygen. * Ultimately a bed in our facility does open up and the patient is admitted to the medical surgical floor inpatient with telemetry for further management of his COVID-19 pneumonia and hypoxia. PLAN: COVID-19 Hypoxia Elevated d-dimer Elevated C-reactive protein COVID-19 vaccine series completed. * Airborne/contact precautions * As needed DuoNebs * As needed albuterol MDI * RT consultation * I-S * O2 as needed with goal saturations of 88 to 95% * Continue high flow as directed * 600 mg Mucinex twice daily * As needed Tylenol * Telemetry * Continuous pulse oximetry * Prone whenever able * Ambulate around the room * Lovenox 40 mg daily * Daily labs * Every 48 hour D-dimer * Famotidine 20 mg twice daily * Zinc supplementation * Check procalcitonin * 6 mg dexamethasone daily for 10 total days * Remdesivir daily for 5 total days * As needed Tessalon Perles for cough * PT/OT evaluation * Case management/social work for discharge planning Scalp laceration * From prior fall on 08/08/2021 * Remove in 7 to 10 days from initial injury Hypokalemia * Supplement * Recheck labs HTN (hypertension) * Hold home BP meds * Monitor blood pressure Code status: Full code PCP: Dr. Gilbert DVT prophylaxis: Lovenox Social: Patient resides in a home in [place] with his . Disposition: Admitted to the floor on telemetry for management of COVID-19 pneumonia with hypoxia. Length of stay likely 4 to 5 days pending improvement. - Mortality Measure Prognosis:: Good
[2021-08-13] MEDS ORDERED: FLU Vacc QS2021(65UP)/MF59C/PF 60 MCG/0.5 ML Syringe IM ONE (13:00)
[2021-08-13] MEDS ORDERED: Benzonatate 100 MG Cap PO PRN (13:14)
[2021-08-13] MEDS: Acetaminophen 325 MG Tab PO PRN ×2 (13:29→22:23)
[2021-08-13] MEDS: Potassium Chloride 20 MEQ Tab.ER PO SCH ×2 (15:54→22:24)
[2021-08-13] MEDS ORDERED: Polyethylene Glycol 3350 Powder 17 GM Packet PO ONE (17:47)
[2021-08-13] MEDS: REMDESIVIR 100 MG in Sodium Chloride 0.9% 100 ML IV SCH (18:37)
[2021-08-13] MEDS: Dexamethasone 4 MG Tab PO SCH (18:37)
[2021-08-13] MEDS: Albuterol/Ipratropium 3.0-0.5 MG/3 ML Neb Soln NEB PRN (20:16)
[2021-08-13] MEDS: guaiFENesin 600 MG Tab.ER PO SCH (22:24)
[2021-08-13] MEDS: Enoxaparin 40 MG/0.4 ML Syringe SUBCUT SCH (22:25)
[2021-08-13] MEDS: Famotidine 20 MG Tab PO SCH (22:25)
[2021-08-14] MEDS: Albuterol/Ipratropium 3.0-0.5 MG/3 ML Neb Soln NEB PRN ×3 (05:33→21:03)
[2021-08-14] MEDS: Zinc Sulfate 220 MG Cap PO SCH (08:30)
[2021-08-14] MEDS: guaiFENesin 600 MG Tab.ER PO SCH ×2 (08:30→22:02)
--- NOTE | 2021-08-14 08:46 | PCM.PN ---
- General Info Date of Service: 08/14/21 Admission Dx/Problem (Free Text): Admission Diagnosis/Problem Admission Diagnosis/Problem Hypoxia Functional Status: Reports: Pain Controlled, Tolerating Diet, Ambulating, Urinating, Incentive Spirometry, Other (Acapella ). Denies: New Symptoms - Review of Systems General: Reports: Weakness, Fatigue, Malaise. Denies: Fever, Chills HEENT: Reports: No Symptoms. Denies: Headaches, Sore Throat Pulmonary: Reports: Shortness of Breath, Cough. Denies: Pleuritic Chest Pain, Sputum, Wheezing Cardiovascular: Reports: Dyspnea on Exertion. Denies: Chest Pain, Palpitations, Edema Gastrointestinal: Reports: No Symptoms. Denies: Abdominal Pain, Constipation, Diarrhea, Nausea, Vomiting Genitourinary: Reports: No Symptoms. Denies: Pain Musculoskeletal: Reports: No Symptoms Skin: Reports: No Symptoms. Denies: Cyanosis Neurological: Reports: Difficulty Walking, Weakness. Denies: Confusion, Dizziness, Headache, Numbness, Pre-Existing Deficit, Seizure, Syncope, Tingling, Gait Disturbance Psychiatric: Reports: No Symptoms - Patient Data Vitals - Most Recent: Last Vital Signs Temp 97.7 F 08/14/21 03:23 Pulse 66 08/14/21 03:23 Resp 21 H 08/14/21 06:00 BP 124/90 08/14/21 03:23 Pulse Ox 94 L 08/14/21 05:34 Weight - Most Recent: 190 lb 14.4 oz I&O - Last 24 Hours: Intake & Output 08/13/21 08/14/21 08/14/21 22:59 06:59 14:59 Intake Total 900 400 Output Total 550 800 Balance 350 -400 Lab Results Last 24 Hours: Laboratory Results - last 24 hr 08/13/21 08/13/21 08/13/21 Range/Units 13:16 13:16 13:16 WBC 10.66 H (4.23-9.07) K/mm3 RBC 5.24 (4.63-6.08) M/mm3 Hgb 15.1 (13.7-17.5) gm/dl Hct 44.6 (40.1-51.0) % MCV 85.1 (79.0-92.2) fl MCH 28.8 (25.7-32.2) pg MCHC 33.9 (32.2-35.5) g/dl RDW Std Deviation 40.0 (35.1-43.9) fL Plt Count 190 (163-337) K/mm3 MPV 10.7 (9.4-12.3) fl Neut % (Auto) 90.4 H (34.0-67.9) % Lymph % (Auto) 2.6 L (21.8-53.1) % Leslie % (Auto) 6.6 (5.3-12.2) % Eos % (Auto) 0 L (0.8-7.0) Baso % (Auto) 0.1 (0.1-1.2) % Neut # (Auto) 9.64 H (1.78-5.38) K/mm3 Lymph # (Auto) 0.28 L (1.32-3.57) K/mm3 Leslie # (Auto) 0.70 (0.30-0.82) K/mm3 Eos # (Auto) 0.00 L (0.04-0.54) K/mm3 Baso # (Auto) 0.01 (0.01-0.08) K/mm3 Manual Slide Review Abnormal smear D-Dimer, Quantitative 0.87 H (0.19-0.50) mg/L Sodium 137 (136-145) mEq/L Potassium 2.9 L (3.5-5.1) mEq/L Chloride 99 (98-107) mEq/L Carbon Dioxide 28 (21-32) mEq/L Anion Gap 12.9 (5-15) BUN 39 H (7-18) mg/dL Creatinine 1.4 H (0.7-1.3) mg/dL Est Cr Clr Drug Dosing 40.04 mL/min Estimated GFR (MDRD) 49 (>60) mL/min BUN/Creatinine Ratio 27.9 H (14-18) Glucose 196 H (70-99) mg/dL Calcium 8.2 L (8.5-10.1) mg/dL Magnesium 2.0 (1.8-2.4) mg/dL Total Bilirubin 0.5 (0.2-1.0) mg/dL AST 64 H (15-37) U/L ALT 43 (16-63) U/L Alkaline Phosphatase 36 L (46-116) U/L C-Reactive Protein 12.4 H* (<1.0) mg/dL Total Protein 6.0 L (6.4-8.2) g/dl Albumin 2.4 L (3.4-5.0) g/dl Globulin 3.6 gm/dL Albumin/Globulin Ratio 0.7 L (1-2) 08/14/21 08/14/21 Range/Units 06:23 06:23 WBC 11.82 H (4.23-9.07) K/mm3 RBC 5.06 (4.63-6.08) M/mm3 Hgb 14.6 (13.7-17.5) gm/dl Hct 43.1 (40.1-51.0) % MCV 85.2 (79.0-92.2) fl MCH 28.9 (25.7-32.2) pg MCHC 33.9 (32.2-35.5) g/dl RDW Std Deviation 39.8 (35.1-43.9) fL Plt Count 208 (163-337) K/mm3 MPV 10.9 (9.4-12.3) fl Neut % (Auto) 91.8 H (34.0-67.9) % Lymph % (Auto) 2.2 L (21.8-53.1) % Leslie % (Auto) 5.5 (5.3-12.2) % Eos % (Auto) 0 L (0.8-7.0) Baso % (Auto) 0.1 (0.1-1.2) % Neut # (Auto) 10.85 H (1.78-5.38) K/mm3 Lymph # (Auto) 0.26 L (1.32-3.57) K/mm3 Leslie # (Auto) 0.65 (0.30-0.82) K/mm3 Eos # (Auto) 0.00 L (0.04-0.54) K/mm3 Baso # (Auto) 0.01 (0.01-0.08) K/mm3 Manual Slide Review Abnormal smear D-Dimer, Quantitative (0.19-0.50) mg/L Sodium 135 L (136-145) mEq/L Potassium 4.0 (3.5-5.1) mEq/L Chloride 101 (98-107) mEq/L Carbon Dioxide 26 (21-32) mEq/L Anion Gap 12.0 (5-15) BUN 35 H (7-18) mg/dL Creatinine 1.2 (0.7-1.3) mg/dL Est Cr Clr Drug Dosing 46.71 mL/min Estimated GFR (MDRD) 58 (>60) mL/min BUN/Creatinine Ratio 29.2 H (14-18) Glucose 147 H (70-99) mg/dL Calcium 7.9 L (8.5-10.1) mg/dL Magnesium 1.9 (1.8-2.4) mg/dL Total Bilirubin 0.5 (0.2-1.0) mg/dL AST 58 H (15-37) U/L ALT 45 (16-63) U/L Alkaline Phosphatase 37 L (46-116) U/L C-Reactive Protein 8.3 H* (<1.0) mg/dL Total Protein 5.7 L (6.4-8.2) g/dl Albumin 2.3 L (3.4-5.0) g/dl Globulin 3.4 gm/dL Albumin/Globulin Ratio 0.7 L (1-2) Med Orders - Current: Current Medications Acetaminophen (Acetaminophen 325 Mg Tab) 650 mg PO Q4H PRN PRN Reason: Pain (Mild 1-3)/fever Last Admin: 08/13/21 22:23 Dose: 650 mg Documented by: Albuterol (Albuterol 6.7 Gm Inhaler) 0 gm INH Q2H PRN PRN Reason: SOB/wheezing Albuterol/Ipratropium (Albuterol/Ipratropium 3.0-0.5 Mg/3 Ml Neb Soln) 3 ml NEB QIDRT PRN PRN Reason: Shortness Of Breath/wheezing Last Admin: 08/14/21 08:45 Dose: 3 ml Documented by: Benzonatate (Benzonatate 100 Mg Cap) 100 mg PO TID PRN PRN Reason: Cough Last Admin: 08/13/21 22:24 Dose: 100 mg Documented by: Dexamethasone (Dexamethasone 4 Mg Tab) 6 mg PO Q24H [facility]ER Stop: 08/20/21 17:01 Last Admin: 08/13/21 18:37 Dose: 6 mg Documented by: Enoxaparin Sodium (Enoxaparin 40 Mg/0.4 Ml Syringe) 40 mg SUBCUT BEDTIME [facility] Last Admin: 08/13/21 22:25 Dose: 40 mg Documented by: Famotidine (Famotidine 20 Mg Tab) 20 mg PO BEDTIME [facility] Last Admin: 08/13/21 22:25 Dose: 20 mg Documented by: Guaifenesin (Guaifenesin 600 Mg Tab.Er) 600 mg PO BID [facility] Last Admin: 08/14/21 08:30 Dose: 600 mg Documented by: Remdesivir 100 mg/ Sodium (Chloride) 100 mls @ 100 mls/hr IV Q24H [facility] Stop: 08/15/21 17:59 Last Admin: 08/13/21 18:37 Dose: 100 mls/hr Documented by: Ondansetron HCl (Ondansetron 4 Mg/2 Ml Sdv) 4 mg IV Q6H PRN PRN Reason: Nausea/Vomiting Senna/Docusate Sodium (Docusate Sodium/Sennosides 50-8.6 Mg Tab) 1 tab PO BID PRN PRN Reason: Constipation Last Admin: 08/14/21 08:30 Dose: 1 tab Documented by: Sodium Chloride (Sodium Chloride 0.9% 10 Ml Syringe) 10 ml FLUSH ASDIRECTED PRN PRN Reason: Keep Vein Open Last Admin: 08/11/21 16:21 Dose: 10 ml Documented by: Zinc Sulfate (Zinc Sulfate 220 Mg Cap) 220 mg PO DAILY [facility] Last Admin: 08/14/21 08:30 Dose: 220 mg Documented by: Discontinued Medications Albuterol/Ipratropium (Albuterol/Ipratropium 3.0-0.5 Mg/3 Ml Neb Soln) 3 ml NEB ONETIME ONE Stop: 08/12/21 04:10 Last Admin: 08/12/21 04:19 Dose: 3 ml Documented by: Dexamethasone (Dexamethasone 10 Mg/Ml Sdv) 6 mg IVPUSH ONETIME ONE Stop: 08/11/21 17:13 Last Admin: 08/11/21 17:42 Dose: 6 mg Documented by: Dexamethasone (Dexamethasone 10 Mg/Ml Sdv) 6 mg IVPUSH Q24H [facility] Stop: 08/15/21 19:01 Last Admin: 08/12/21 19:51 Dose: 6 mg Documented by: Hydrochlorothiazide (Hydrochlorothiazide 12.5 Mg Cap) 12.5 mg PO DAILY [facility] Stop: 08/15/21 09:01 Last Admin: 08/13/21 09:25 Dose: 12.5 mg Documented by: Remdesivir 200 mg/ Sodium (Chloride) 250 mls @ 250 mls/hr IV ONETIME ONE Stop: 08/11/21 17:13 Last Admin: 08/11/21 17:42 Dose: 250 mls/hr Documented by: Remdesivir 100 mg/ Sodium (Chloride) 100 mls @ 100 mls/hr IV Q24H [facility] Stop: 08/15/21 19:59 Last Admin: 08/12/21 19:52 Dose: 100 mls/hr Documented by: Influenza Virus Vaccine (Flu Vacc Cd3395(65up)/Mf59c/Pf 60 Mcg/0.5 Ml Syringe) 60 mcg IM .ONCE ONE Stop: 08/13/21 13:01 Lisinopril (Lisinopril 10 Mg Tab) 10 mg PO DAILY [facility] Stop: 08/15/21 09:01 Last Admin: 08/13/21 09:25 Dose: 10 mg Documented by: Loperamide HCl (Loperamide 2 Mg Cap) 4 mg PO ONETIME ONE Stop: 08/11/21 15:52 Last Admin: 08/11/21 16:20 Dose: 4 mg Documented by: Polyethylene Glycol (Polyethylene Glycol 3350 Powder 17 Gm Packet) 17 gm PO ONETIME ONE Stop: 08/13/21 17:48 Last Admin: 08/13/21 18:36 Dose: 17 gm Documented by: Potassium Chloride (Potassium Chloride 20 Meq Tab.Er) 40 meq PO BID [facility] Stop: 08/14/21 09:01 Last Admin: 08/13/21 22:24 Dose: 40 meq Documented by: - Exam Quality Assessment: Supplemental Oxygen (High flow 60 L with FiO2 of 90%), DVT Prophylaxis. No: Urine Catheter General: Alert, Oriented, Cooperative, No Acute Distress HEENT: Pupils Equal, Pupils Reactive, Mucous Membr. Moist/[place] Neck: Supple, Trachea Midline Lungs: Normal Respiratory Effort, Decreased Breath Sounds, Crackles, Rhonchi. No: Wheezing GI/Abdominal Exam: Normal Bowel Sounds, Soft, Non-Tender, No Distention (Male) Exam: Deferred Back Exam: Normal Inspection, Full Range of Motion Extremities: Normal Inspection, Normal Range of Motion, Non-Tender, No Pedal Edema, Normal Capillary Refill Skin: Warm, Dry, Intact Neurological: No New Focal Deficit Psy/Mental Status: Alert, Normal Affect, Normal Mood - Patient Data Lab Results Last 24 hrs: Laboratory Results - last 24 hr 08/13/21 08/13/21 08/13/21 Range/Units 13:16 13:16 13:16 WBC 10.66 H (4.23-9.07) K/mm3 RBC 5.24 (4.63-6.08) M/mm3 Hgb 15.1 (13.7-17.5) gm/dl Hct 44.6 (40.1-51.0) % MCV 85.1 (79.0-92.2) fl MCH 28.8 (25.7-32.2) pg MCHC 33.9 (32.2-35.5) g/dl RDW Std Deviation 40.0 (35.1-43.9) fL Plt Count 190 (163-337) K/mm3 MPV 10.7 (9.4-12.3) fl Neut % (Auto) 90.4 H (34.0-67.9) % Lymph % (Auto) 2.6 L (21.8-53.1) % Leslie % (Auto) 6.6 (5.3-12.2) % Eos % (Auto) 0 L (0.8-7.0) Baso % (Auto) 0.1 (0.1-1.2) % Neut # (Auto) 9.64 H (1.78-5.38) K/mm3 Lymph # (Auto) 0.28 L (1.32-3.57) K/mm3 Leslie # (Auto) 0.70 (0.30-0.82) K/mm3 Eos # (Auto) 0.00 L (0.04-0.54) K/mm3 Baso # (Auto) 0.01 (0.01-0.08) K/mm3 Manual Slide Review Abnormal smear D-Dimer, Quantitative 0.87 H (0.19-0.50) mg/L Sodium 137 (136-145) mEq/L Potassium 2.9 L (3.5-5.1) mEq/L Chloride 99 (98-107) mEq/L Carbon Dioxide 28 (21-32) mEq/L Anion Gap 12.9 (5-15) BUN 39 H (7-18) mg/dL Creatinine 1.4 H (0.7-1.3) mg/dL Est Cr Clr Drug Dosing 40.04 mL/min Estimated GFR (MDRD) 49 (>60) mL/min BUN/Creatinine Ratio 27.9 H (14-18) Glucose 196 H (70-99) mg/dL Calcium 8.2 L (8.5-10.1) mg/dL Magnesium 2.0 (1.8-2.4) mg/dL Total Bilirubin 0.5 (0.2-1.0) mg/dL AST 64 H (15-37) U/L ALT 43 (16-63) U/L Alkaline Phosphatase 36 L (46-116) U/L C-Reactive Protein 12.4 H* (<1.0) mg/dL Total Protein 6.0 L (6.4-8.2) g/dl Albumin 2.4 L (3.4-5.0) g/dl Globulin 3.6 gm/dL Albumin/Globulin Ratio 0.7 L (1-2) 08/14/21 08/14/21 Range/Units 06:23 06:23 WBC 11.82 H (4.23-9.07) K/mm3 RBC 5.06 (4.63-6.08) M/mm3 Hgb 14.6 (13.7-17.5) gm/dl Hct 43.1 (40.1-51.0) % MCV 85.2 (79.0-92.2) fl MCH 28.9 (25.7-32.2) pg MCHC 33.9 (32.2-35.5) g/dl RDW Std Deviation 39.8 (35.1-43.9) fL Plt Count 208 (163-337) K/mm3 MPV 10.9 (9.4-12.3) fl Neut % (Auto) 91.8 H (34.0-67.9) % Lymph % (Auto) 2.2 L (21.8-53.1) % Leslie % (Auto) 5.5 (5.3-12.2) % Eos % (Auto) 0 L (0.8-7.0) Baso % (Auto) 0.1 (0.1-1.2) % Neut # (Auto) 10.85 H (1.78-5.38) K/mm3 Lymph # (Auto) 0.26 L (1.32-3.57) K/mm3 Leslie # (Auto) 0.65 (0.30-0.82) K/mm3 Eos # (Auto) 0.00 L (0.04-0.54) K/mm3 Baso # (Auto) 0.01 (0.01-0.08) K/mm3 Manual Slide Review Abnormal smear D-Dimer, Quantitative (0.19-0.50) mg/L Sodium 135 L (136-145) mEq/L Potassium 4.0 (3.5-5.1) mEq/L Chloride 101 (98-107) mEq/L Carbon Dioxide 26 (21-32) mEq/L Anion Gap 12.0 (5-15) BUN 35 H (7-18) mg/dL Creatinine 1.2 (0.7-1.3) mg/dL Est Cr Clr Drug Dosing 46.71 mL/min Estimated GFR (MDRD) 58 (>60) mL/min BUN/Creatinine Ratio 29.2 H (14-18) Glucose 147 H (70-99) mg/dL Calcium 7.9 L (8.5-10.1) mg/dL Magnesium 1.9 (1.8-2.4) mg/dL Total Bilirubin 0.5 (0.2-1.0) mg/dL AST 58 H (15-37) U/L ALT 45 (16-63) U/L Alkaline Phosphatase 37 L (46-116) U/L C-Reactive Protein 8.3 H* (<1.0) mg/dL Total Protein 5.7 L (6.4-8.2) g/dl Albumin 2.3 L (3.4-5.0) g/dl Globulin 3.4 gm/dL Albumin/Globulin Ratio 0.7 L (1-2) Result Diagrams: 08/14/21 06:23 08/14/21 06:23 Sepsis Event Note - Evaluation Sepsis Screening Result: Sepsis Risk - Focused Exam Vital Signs: Vital Signs Temp Pulse Resp BP Pulse Ox Pulse Ox 08/14/21 06:00 21 H 08/14/21 05:34 94 L 08/14/21 05:00 26 H 08/14/21 04:00 34 H 88 L 08/14/21 03:23 97.7 F 66 22 H 124/90 86 L 08/14/21 03:00 32 H 08/14/21 02:00 22 H 08/14/21 01:00 17 08/14/21 00:00 21 H 08/13/21 23:23 98.2 F 105 H 26 H 150/68 H 91 L 08/13/21 23:00 18 08/13/21 22:42 19 08/13/21 22:25 88 L 08/13/21 22:00 23 H 08/13/21 21:51 97.9 F 85 26 H 123/87 89 L 08/13/21 21:00 28 H - Problem List & Annotations (1) COVID-19 SNOMED Code(s): 270645561 Code(s): U07.1 - COVID-19 Status: Acute Priority: High Current Visit: Yes (2) Hypoxia SNOMED Code(s): 807935841 Code(s): R09.02 - HYPOXEMIA Status: Acute Priority: High Current Visit: Yes (3) Scalp laceration SNOMED Code(s): 331656653 Code(s): S01.01XA - LACERATION WITHOUT FOREIGN BODY OF SCALP, INITIAL ENCOUNTER Status: Chronic Priority: Medium Current Visit: Yes (4) Hypokalemia SNOMED Code(s): 25828212 Code(s): E87.6 - HYPOKALEMIA Status: Resolved Priority: High Current Visit: Yes (5) HTN (hypertension) SNOMED Code(s): 60680204 Code(s): I10 - ESSENTIAL (PRIMARY) HYPERTENSION Status: Acute Priority: High Current Visit: Yes Qualifiers: Hypertension type: unspecified Qualified Code(s): I10 - Essential (primary) hypertension (6) Elevated d-dimer SNOMED Code(s): 374443421 Code(s): R79.89 - OTHER SPECIFIED ABNORMAL FINDINGS OF BLOOD CHEMISTRY Status: Acute Priority: High Current Visit: Yes (7) Elevated C-reactive protein SNOMED Code(s): 456919584780081 Code(s): R79.82 - ELEVATED C-REACTIVE PROTEIN (CRP) Status: Acute Priority: High Current Visit: Yes (8) COVID-19 vaccine series completed SNOMED Code(s): 936502386, 100284658 Code(s): Z92.29 - PERSONAL HISTORY OF OTHER DRUG THERAPY Status: Chronic Priority: Medium Current Visit: Yes - Problem List Review Problem List Initiated/Reviewed/Updated: Yes - My Orders Last 24 Hours: My Active Orders 08/13/21 12:44 Height and Weight [RC] 06 Oxygen Therapy [RC] ASDIRECTED RT Incentive Spirometry [RC] ASDIRECTED Vital Signs [RC] ,,16,22 Consult to Case Management/Sewing Machine Maintenance Mechanic [CONS] Routine Acetaminophen [TylenoL] 650 mg PO Q4H PRN Albuterol [Proventil HFA] See Dose Instructions INH Q2H PRN Albuterol/Ipratropium [DuoNeb 3.0-0.5 MG/3 ML] 3 ml NEB QIDRT PRN Docusate Sodium/Sennosides [Senna Plus] 1 tab PO BID PRN Ondansetron [Zofran] 4 mg IV Q6H PRN Isolation [COMM] Routine 08/13/21 12:45 Cardiac Monitoring [RC] CONTINUOUS Intake and Output [RC] Pulse Oximetry [RC] CONTINUOUS Up With Assistance [RC] ASDIRECTED 08/13/21 12:46 RT Aerosol Therapy [RC] ASDIRECTED OT Evaluation and Treatment [CONS] Routine PT Evaluation and Treatment [CONS] Routine Respiratory Care Assess and Treatment [CONS] Routine 08/13/21 12:50 Positioning, Patient [RC] ASDIRECTED 08/13/21 13:14 Benzonatate [Tessalon Perles] 100 mg PO TID PRN 08/13/21 13:16 PROCALCITONIN [REF] Routine 08/13/21 Dinner Heart Healthy Diet [DIET] Remdesivir 100 mg Sodium Chloride 0.9% [Normal Saline] 100 ml IV Q24H dexAMETHasone 6 mg PO Q24H 08/13/21 21:00 Enoxaparin [Lovenox] 40 mg SUBCUT BEDTIME Famotidine [Pepcid] 20 mg PO BEDTIME guaiFENesin [Mucinex] 600 mg PO BID 08/14/21 09:00 Zinc Sulfate [Zincate] 220 mg PO DAILY 08/15/21 05:11 C-REACTIVE PROTEIN [CHEM] AM CBC WITH AUTO DIFF [HEME] AM COMPREHENSIVE METABOLIC PN,CMP [CHEM] AM MAGNESIUM [CHEM] AM 08/15/21 13:15 DD [D-DIMER QUANTITATIVE] [COAG] Q48H 08/16/21 05:11 C-REACTIVE PROTEIN [CHEM] AM CBC WITH AUTO DIFF [HEME] AM COMPREHENSIVE METABOLIC PN,CMP [CHEM] AM MAGNESIUM [CHEM] AM 08/17/21 05:11 C-REACTIVE PROTEIN [CHEM] AM CBC WITH AUTO DIFF [HEME] AM COMPREHENSIVE METABOLIC PN,CMP [CHEM] AM MAGNESIUM [CHEM] AM 08/17/21 13:15 DD [D-DIMER QUANTITATIVE] [COAG] Q48H 08/19/21 13:15 DD [D-DIMER QUANTITATIVE] [COAG] Q48H - Assessment Assessment:: Admission assessment - 08/13/2021 * This is an 81-year-old male who presented to ED on 08/11/2021 with low oxygen saturations and known positive COVID-19 diagnosis * History of hypertension * Reports he been sick for about a week and noted cough, diarrhea, shortness of breath, and oxygen saturations of 86% on room air. * He did receive the Pfizer vaccine. * He was requiring 6 L with saturations of 86 to 87%. * Labs are obtained: * WBC of 9.66. * Hemoglobin 15.5. * Platelet count 206,000. * Neutrophils are elevated 89.1%. * D-dimer is 1.32. * CRP is 26.2. * Sodium is 138. * Potassium is low at 3.3. * Chloride 97. * Carbon dioxide 28. * Anion gap is 16.3. * BUN is 37. Creatinine 1.8. GFR is 36. * Glucose is 114. * Calcium is 8.0. * Magnesium is 1.9. * Total bilirubin 0.6. * AST is 63, ALT 42, alkaline phosphatase 35. * Albumin is 2.9. * Total protein 7.1. * He is given dexamethasone and remdesivir in the ED. * Chest x-ray is obtained showing patchy areas of increased density within both sides of the chest. Difficult to completely exclude Covid pneumonia. Please correlate with patient's symptoms. Other findings are noted to be incidental. * Patient was requiring admission and unfortunately our facility and every other facility in the state were on diversion. * Remained for approximately 2 days in the emergency room with worsening saturations. * He was shifted to a nonrebreather and ultimately started on high flow oxygen. * Ultimately a bed in our facility does open up and the patient is admitted to the medical surgical floor inpatient with telemetry for further management of his COVID-19 pneumonia and hypoxia. 08/14/2021 This is an 81-year-old male admitted to the floor for worsening Covid pneumonia symptoms. He continues on dexamethasone and remdesivir. Today we discussed baricitinib and he agreed to proceed with this treatment. He remains on high flow oxygen at 60 L with an FiO2 of 90%. Labs today show WBC of 11.82. Hemoglobin is 14.6. Platelet 208,000. Neutrophils are elevated at 91.8%. Sodium is 135. Potassium is up to 4.0. Chloride is 101. Carbon dioxide 26. Anion gap is 12.0. BUN is 35. Creatinine is improved to 1.2. GFR is up to 58. Glucose is 147. Calcium 7.9. Magnesium 1.9. Total bilirubin 0.5. AST is 58, ALT 45, alkaline phosphatase 37. CRP is 8.3. Protein 5.7. Albumin is down to 2.3. Procalcitonin from yesterday returned at 0.81. Overall lab values have improved. We will continue current treatment plan. Unknown length of stay due to severity of symptoms. - Plan Plan:: COVID-19 Hypoxia Elevated d-dimer Elevated C-reactive protein COVID-19 vaccine series completed. * Airborne/contact precautions * As needed DuoNebs * As needed albuterol MDI * RT consultation * I-S * O2 as needed with goal saturations of 88 to 95% * Continue high flow as directed * 600 mg Mucinex twice daily * As needed Tylenol * Telemetry * Continuous pulse oximetry * Prone whenever able * Ambulate around the room * Lovenox 40 mg daily * Daily labs * Every 48 hour D-dimer * Famotidine 20 mg twice daily * Zinc supplementation * Check procalcitonin * 6 mg dexamethasone daily for 10 total days * Remdesivir daily for 5 total days * As needed Tessalon Perles for cough * PT/OT evaluation * Case management/social work for discharge planning * Start baricitinib today for a total of 14 days or until discharge Scalp laceration * From prior fall on 08/08/2021 * Remove in 7 to 10 days from initial injury Hypokalemia, resolved * Monitor labs HTN (hypertension) * Hold home BP meds * Monitor blood pressure Code status: Full code PCP: Dr. Gilbert DVT prophylaxis: Lovenox Social: Patient resides in a home in [place] with his . Disposition: Admitted to the floor on telemetry for management of COVID-19 pneumonia with hypoxia. Length of stay likely 4 to 5 days pending improvement. I spoke with Chon to provide information about baricitinib. I offered the "fax sheet for patients and parents/caregivers, for baricitinib" to read and review. I stated that therapy has been approved by an emergency use authorization process and has not fully been FDA reviewed or approved. I shared potential risks from the therapy including increased risk for serious infections, anaphylaxis, and reaction to medication. I discussed there are other potential treatment options that are currently not FDA approved to treat COVID-19. Offered opportunity to ask questions and all questions were answered. Chon voiced understanding and agreed to proceed with treatment.
[2021-08-14] MEDS: Dexamethasone 4 MG Tab PO SCH (15:59)
[2021-08-14] MEDS: REMDESIVIR 100 MG in Sodium Chloride 0.9% 100 ML IV SCH (16:00)
[2021-08-14] MEDS: Famotidine 20 MG Tab PO SCH (22:02)
[2021-08-14] MEDS: Enoxaparin 40 MG/0.4 ML Syringe SUBCUT SCH (22:02)
[2021-08-15] MEDS: Albuterol/Ipratropium 3.0-0.5 MG/3 ML Neb Soln NEB PRN ×3 (04:27→15:29)
[2021-08-15] MEDS: Zinc Sulfate 220 MG Cap PO SCH (08:29)
[2021-08-15] MEDS: guaiFENesin 600 MG Tab.ER PO SCH ×2 (08:29→20:30)
[2021-08-15] MEDS: Enoxaparin 100 MG/1 ML Syringe SUBCUT SCH ×2 (10:03→20:30)
--- NOTE | 2021-08-15 15:50 | PCM.PN ---
- General Info Date of Service: 08/15/21 Admission Dx/Problem (Free Text): Admission Diagnosis/Problem Admission Diagnosis/Problem Hypoxia Subjective Update: This is an 81-year-old male who presented to ED on 08/11/2021 with low oxygen saturations and known positive COVID-19 diagnosis. Still complains of shortness of breath. She is on high flow 60 L or nonrebreather D-dimer 136 Creatinine 1.1, GFR > 60 CRP trending down to 6.0 - Review of Systems General: Reports: No Symptoms HEENT: Reports: No Symptoms Pulmonary: Reports: Shortness of Breath Cardiovascular: Reports: No Symptoms Gastrointestinal: Reports: No Symptoms Genitourinary: Reports: No Symptoms Musculoskeletal: Reports: No Symptoms Skin: Reports: No Symptoms Neurological: Reports: No Symptoms Psychiatric: Reports: No Symptoms - Patient Data Vitals - Most Recent: Last Vital Signs Temp 36.9 C 08/14/21 22:00 Pulse 97 08/15/21 02:44 Resp 30 H 08/15/21 04:00 BP 131/79 08/15/21 02:44 Pulse Ox 90 L 08/15/21 15:29 Weight - Most Recent: 86.364 kg I&O - Last 24 Hours: Intake & Output 08/15/21 08/15/21 08/15/21 06:59 14:59 22:59 Output Total 650 Balance -650 Lab Results Last 24 Hours: Laboratory Results - last 24 hr 08/15/21 08/15/21 08/15/21 Range/Units 07:50 07:50 07:50 WBC 14.51 H (4.23-9.07) K/mm3 RBC 5.11 (4.63-6.08) M/mm3 Hgb 14.7 (13.7-17.5) gm/dl Hct 43.6 (40.1-51.0) % MCV 85.3 (79.0-92.2) fl MCH 28.8 (25.7-32.2) pg MCHC 33.7 (32.2-35.5) g/dl RDW Std Deviation 40.1 (35.1-43.9) fL Plt Count 235 (163-337) K/mm3 MPV 11.0 (9.4-12.3) fl Neut % (Auto) 90.7 H (34.0-67.9) % Lymph % (Auto) 2.3 L (21.8-53.1) % [place] % (Auto) 6.3 (5.3-12.2) % Eos % (Auto) 0 L (0.8-7.0) Baso % (Auto) 0.1 (0.1-1.2) % Neut # (Auto) 13.16 H (1.78-5.38) K/mm3 Lymph # (Auto) 0.33 L (1.32-3.57) K/mm3 [place] # (Auto) 0.92 H (0.30-0.82) K/mm3 Eos # (Auto) 0.00 L (0.04-0.54) K/mm3 Baso # (Auto) 0.01 (0.01-0.08) K/mm3 Manual Slide Review Normal smear D-Dimer, Quantitative 1.36 H (0.19-0.50) mg/L Sodium 135 L (136-145) mEq/L Potassium 4.2 (3.5-5.1) mEq/L Chloride 101 (98-107) mEq/L Carbon Dioxide 25 (21-32) mEq/L Anion Gap 13.2 (5-15) BUN 28 H (7-18) mg/dL Creatinine 1.1 (0.7-1.3) mg/dL Est Cr Clr Drug Dosing 50.95 mL/min Estimated GFR (MDRD) > 60 (>60) mL/min BUN/Creatinine Ratio 25.5 H (14-18) Glucose 132 H (70-99) mg/dL Calcium 8.1 L (8.5-10.1) mg/dL Magnesium 1.9 (1.8-2.4) mg/dL Total Bilirubin 0.9 (0.2-1.0) mg/dL AST 54 H (15-37) U/L ALT 46 (16-63) U/L Alkaline Phosphatase 46 (46-116) U/L C-Reactive Protein 6.0 H* (<1.0) mg/dL Total Protein 6.1 L (6.4-8.2) g/dl Albumin 2.5 L (3.4-5.0) g/dl Globulin 3.6 gm/dL Albumin/Globulin Ratio 0.7 L (1-2) Med Orders - Current: Current Medications Acetaminophen (Acetaminophen 325 Mg Tab) 650 mg PO Q4H PRN PRN Reason: Pain (Mild 1-3)/fever Last Admin: 08/13/21 22:23 Dose: 650 mg Documented by: Albuterol (Albuterol 6.7 Gm Inhaler) 0 gm INH Q2H PRN PRN Reason: SOB/wheezing Albuterol/Ipratropium (Albuterol/Ipratropium 3.0-0.5 Mg/3 Ml Neb Soln) 3 ml NEB QIDRT PRN PRN Reason: Shortness Of Breath/wheezing Last Admin: 08/15/21 15:29 Dose: 3 ml Documented by: Baricitinib (Baricitinib 2 Mg Tab) 2 mg PO DAILY [facility] Stop: 08/27/21 09:01 Last Admin: 08/15/21 08:29 Dose: 2 mg Documented by: Benzonatate (Benzonatate 100 Mg Cap) 100 mg PO TID PRN PRN Reason: Cough Last Admin: 08/13/21 22:24 Dose: 100 mg Documented by: Dexamethasone (Dexamethasone 4 Mg Tab) 6 mg PO Q24H [facility] Stop: 08/20/21 17:01 Last Admin: 08/14/21 15:59 Dose: 6 mg Documented by: Enoxaparin Sodium (Enoxaparin 100 Mg/1 Ml Syringe) 90 mg SUBCUT BID [facility] Last Admin: 08/15/21 10:03 Dose: 90 mg Documented by: Famotidine (Famotidine 20 Mg Tab) 20 mg PO BEDTIME [facility] Last Admin: 08/14/21 22:02 Dose: 20 mg Documented by: Guaifenesin (Guaifenesin 600 Mg Tab.Er) 600 mg PO BID [facility] Last Admin: 08/15/21 08:29 Dose: 600 mg Documented by: Remdesivir 100 mg/ Sodium (Chloride) 100 mls @ 100 mls/hr IV Q24H [facility] Stop: 08/15/21 17:59 Last Admin: 08/14/21 16:00 Dose: 100 mls/hr Documented by: Ondansetron HCl (Ondansetron 4 Mg/2 Ml Sdv) 4 mg IV Q6H PRN PRN Reason: Nausea/Vomiting Senna/Docusate Sodium (Docusate Sodium/Sennosides 50-8.6 Mg Tab) 1 tab PO BID PRN PRN Reason: Constipation Last Admin: 08/14/21 08:30 Dose: 1 tab Documented by: Sodium Chloride (Sodium Chloride 0.9% 10 Ml Syringe) 10 ml FLUSH ASDIRECTED PRN PRN Reason: Keep Vein Open Last Admin: 08/11/21 16:21 Dose: 10 ml Documented by: Zinc Sulfate (Zinc Sulfate 220 Mg Cap) 220 mg PO DAILY [facility] Last Admin: 08/15/21 08:29 Dose: 220 mg Documented by: Discontinued Medications Albuterol/Ipratropium (Albuterol/Ipratropium 3.0-0.5 Mg/3 Ml Neb Soln) 3 ml NEB ONETIME ONE Stop: 08/12/21 04:10 Last Admin: 08/12/21 04:19 Dose: 3 ml Documented by: Dexamethasone (Dexamethasone 10 Mg/Ml Sdv) 6 mg IVPUSH ONETIME ONE Stop: 08/11/21 17:13 Last Admin: 08/11/21 17:42 Dose: 6 mg Documented by: Dexamethasone (Dexamethasone 10 Mg/Ml Sdv) 6 mg IVPUSH Q24H [facility] Stop: 08/15/21 19:01 Last Admin: 08/12/21 19:51 Dose: 6 mg Documented by: Enoxaparin Sodium (Enoxaparin 40 Mg/0.4 Ml Syringe) 40 mg SUBCUT BEDTIME [facility] Last Admin: 08/14/21 22:02 Dose: 40 mg Documented by: Hydrochlorothiazide (Hydrochlorothiazide 12.5 Mg Cap) 12.5 mg PO DAILY [facility] Stop: 08/15/21 09:01 Last Admin: 08/13/21 09:25 Dose: 12.5 mg Documented by: Remdesivir 200 mg/ Sodium (Chloride) 250 mls @ 250 mls/hr IV ONETIME ONE Stop: 08/11/21 17:13 Last Admin: 08/11/21 17:42 Dose: 250 mls/hr Documented by: Remdesivir 100 mg/ Sodium (Chloride) 100 mls @ 100 mls/hr IV Q24H [facility] Stop: 08/15/21 19:59 Last Admin: 08/12/21 19:52 Dose: 100 mls/hr Documented by: Influenza Virus Vaccine (Flu Vacc Ml5686(65up)/Mf59c/Pf 60 Mcg/0.5 Ml Syringe) 60 mcg IM .ONCE ONE Stop: 08/13/21 13:01 Lisinopril (Lisinopril 10 Mg Tab) 10 mg PO DAILY [facility] Stop: 08/15/21 09:01 Last Admin: 08/13/21 09:25 Dose: 10 mg Documented by: Loperamide HCl (Loperamide 2 Mg Cap) 4 mg PO ONETIME ONE Stop: 08/11/21 15:52 Last Admin: 08/11/21 16:20 Dose: 4 mg Documented by: Polyethylene Glycol (Polyethylene Glycol 3350 Powder 17 Gm Packet) 17 gm PO ONETIME ONE Stop: 08/13/21 17:48 Last Admin: 08/13/21 18:36 Dose: 17 gm Documented by: Potassium Chloride (Potassium Chloride 20 Meq Tab.Er) 40 meq PO BID [facility] Stop: 08/14/21 09:01 Last Admin: 08/13/21 22:24 Dose: 40 meq Documented by: - Exam Physical Findings Comments:: General: Alert, Oriented, Cooperative, No Acute Distress HEENT: Pupils Equal, Pupils Reactive, Mucous Membr. Moist/[place] Neck: Supple, Trachea Midline Lungs: Normal Respiratory Effort, Decreased Breath Sounds, Crackles, Rhonchi. No: Wheezing GI/Abdominal Exam: Normal Bowel Sounds, Soft, Non-Tender, No Distention (Male) Exam: Deferred Back Exam: Normal Inspection, Full Range of Motion Extremities: Normal Inspection, Normal Range of Motion, Non-Tender, No Pedal Edema, Normal Capillary Refill Skin: Warm, Dry, Intact Neurological: No New Focal Deficit Psy/Mental Status: Alert, Normal Affect, Normal Mood - Patient Data Lab Results Last 24 hrs: Laboratory Results - last 24 hr 08/15/21 08/15/21 08/15/21 Range/Units 07:50 07:50 07:50 WBC 14.51 H (4.23-9.07) K/mm3 RBC 5.11 (4.63-6.08) M/mm3 Hgb 14.7 (13.7-17.5) gm/dl Hct 43.6 (40.1-51.0) % MCV 85.3 (79.0-92.2) fl MCH 28.8 (25.7-32.2) pg MCHC 33.7 (32.2-35.5) g/dl RDW Std Deviation 40.1 (35.1-43.9) fL Plt Count 235 (163-337) K/mm3 MPV 11.0 (9.4-12.3) fl Neut % (Auto) 90.7 H (34.0-67.9) % Lymph % (Auto) 2.3 L (21.8-53.1) % [place] % (Auto) 6.3 (5.3-12.2) % Eos % (Auto) 0 L (0.8-7.0) Baso % (Auto) 0.1 (0.1-1.2) % Neut # (Auto) 13.16 H (1.78-5.38) K/mm3 Lymph # (Auto) 0.33 L (1.32-3.57) K/mm3 [place] # (Auto) 0.92 H (0.30-0.82) K/mm3 Eos # (Auto) 0.00 L (0.04-0.54) K/mm3 Baso # (Auto) 0.01 (0.01-0.08) K/mm3 Manual Slide Review Normal smear D-Dimer, Quantitative 1.36 H (0.19-0.50) mg/L Sodium 135 L (136-145) mEq/L Potassium 4.2 (3.5-5.1) mEq/L Chloride 101 (98-107) mEq/L Carbon Dioxide 25 (21-32) mEq/L Anion Gap 13.2 (5-15) BUN 28 H (7-18) mg/dL Creatinine 1.1 (0.7-1.3) mg/dL Est Cr Clr Drug Dosing 50.95 mL/min Estimated GFR (MDRD) > 60 (>60) mL/min BUN/Creatinine Ratio 25.5 H (14-18) Glucose 132 H (70-99) mg/dL Calcium 8.1 L (8.5-10.1) mg/dL Magnesium 1.9 (1.8-2.4) mg/dL Total Bilirubin 0.9 (0.2-1.0) mg/dL AST 54 H (15-37) U/L ALT 46 (16-63) U/L Alkaline Phosphatase 46 (46-116) U/L C-Reactive Protein 6.0 H* (<1.0) mg/dL Total Protein 6.1 L (6.4-8.2) g/dl Albumin 2.5 L (3.4-5.0) g/dl Globulin 3.6 gm/dL Albumin/Globulin Ratio 0.7 L (1-2) Result Diagrams: 08/15/21 07:50 08/15/21 07:50 Sepsis Event Note - Evaluation Sepsis Screening Result: Sepsis Risk - Focused Exam Vital Signs: Vital Signs Resp Pulse Ox Pulse Ox Pulse Ox 08/15/21 15:29 90 L 90 L 08/15/21 11:53 90 L 90 L 08/15/21 09:42 89 L 89 L 08/15/21 04:38 90 L 08/15/21 04:00 30 H 78 L - Problem List Review Problem List Initiated/Reviewed/Updated: Yes - My Orders Last 24 Hours: My Active Orders 08/15/21 09:15 Enoxaparin [Lovenox] 90 mg SUBCUT BID 08/15/21 09:27 BIPAP [RT BiPAP/CPAP] [RC] ASDIRECTED - Assessment Assessment:: Admission assessment - 08/13/2021 * This is an 81-year-old male who presented to ED on 08/11/2021 with low oxygen saturations and known positive COVID-19 diagnosis * History of hypertension * Reports he been sick for about a week and noted cough, diarrhea, shortness of breath, and oxygen saturations of 86% on room air. * He did receive the Pfizer vaccine. * He was requiring 6 L with saturations of 86 to 87%. * Labs are obtained: * WBC of 9.66. * Hemoglobin 15.5. * Platelet count 206,000. * Neutrophils are elevated 89.1%. * D-dimer is 1.32. * CRP is 26.2. * Sodium is 138. * Potassium is low at 3.3. * Chloride 97. * Carbon dioxide 28. * Anion gap is 16.3. * BUN is 37. Creatinine 1.8. GFR is 36. * Glucose is 114. * Calcium is 8.0. * Magnesium is 1.9. * Total bilirubin 0.6. * AST is 63, ALT 42, alkaline phosphatase 35. * Albumin is 2.9. * Total protein 7.1. * He is given dexamethasone and remdesivir in the ED. * Chest x-ray is obtained showing patchy areas of increased density within both sides of the chest. Difficult to completely exclude Covid pneumonia. Please correlate with patient's symptoms. Other findings are noted to be incidental. * Patient was requiring admission and unfortunately our facility and every other facility in the state were on diversion. * Remained for approximately 2 days in the emergency room with worsening saturations. * He was shifted to a nonrebreather and ultimately started on high flow oxygen. * Ultimately a bed in our facility does open up and the patient is admitted to the medical surgical floor inpatient with telemetry for further management of his COVID-19 pneumonia and hypoxia. 08/14/2021 This is an 81-year-old male admitted to the floor for worsening Covid pneumonia symptoms. He continues on dexamethasone and remdesivir. Today we discussed baricitinib and he agreed to proceed with this treatment. He remains on high flow oxygen at 60 L with an FiO2 of 90%. Labs today show WBC of 11.82. Hemoglobin is 14.6. Platelet 208,000. Neutrophils are elevated at 91.8%. Sodium is 135. Potassium is up to 4.0. Chloride is 101. Carbon dioxide 26. Anion gap is 12.0. BUN is 35. Creatinine is improved to 1.2. GFR is up to 58. Glucose is 147. Calcium 7.9. Magnesium 1.9. Total bilirubin 0.5. AST is 58 , ALT 45, alkaline phosphatase 37. CRP is 8.3. Protein 5.7. Albumin is down to 2.3. Procalcitonin from yesterday returned at 0.81. Overall lab values have improved. We will continue current treatment plan. Unknown length of stay due to severity of symptoms. 08/15/2021 This is an 81-year-old male who presented to ED on 08/11/2021 with low oxygen saturations and known positive COVID-19 diagnosis. Still complains of shortness of breath. She is on high flow 60 L or nonrebreather D-dimer 136 Creatinine 1.1, GFR > 60 CRP trending down to 6.0 - Plan Plan:: COVID-19 Hypoxia Elevated d-dimer Elevated C-reactive protein COVID-19 vaccine series completed. * Airborne/contact precautions * As needed DuoNebs * As needed albuterol MDI * RT consultation * I-S * O2 as needed with goal saturations of 90 to 95% * Continue high flow as directed * 600 mg Mucinex twice daily * As needed Tylenol * Telemetry * Continuous pulse oximetry * Prone whenever able * Ambulate around the room * Lovenox 90 mg Bid * Daily labs * Every 48 hour D-dimer * Famotidine 20 mg twice daily * Zinc supplementation * Check procalcitonin * 6 mg dexamethasone daily for 10 total days * Remdesivir daily for 5 total days * As needed Tessalon Perles for cough * PT/OT evaluation * Case management/social work for discharge planning * Start baricitinib today for a total of 14 days or until discharge Scalp laceration * From prior fall on 08/08/2021 * Remove in 7 to 10 days from initial injury Hypokalemia, resolved * Monitor labs HTN (hypertension) * Hold home BP meds * Monitor blood pressure Code status: Full code PCP: Dr. Gilbert DVT prophylaxis: Lovenox Social: Patient resides in a home in [place] with his . Disposition: Admitted to the floor on telemetry for management of COVID-19 pneumonia with hypoxia. Length of stay likely 4 to 5 days pending improvement. I spoke with Chon to provide information about baricitinib. I offered the "fax sheet for patients and parents/caregivers, for baricitinib" to read and review. I stated that therapy has been approved by an emergency use authorization process and has not fully been FDA reviewed or approved. I shared potential risks from the therapy including increased risk for serious infections, anaphylaxis, and reaction to medication. I discussed there are other potential treatment options that are currently not FDA approved to treat COVID-19. Offered opportunity to ask questions and all questions were answered. Chon voiced understanding and agreed to proceed with treatment. Prognosis: very guarded.
[2021-08-15] MEDS: Dexamethasone 4 MG Tab PO SCH (16:05)
[2021-08-15] MEDS: REMDESIVIR 100 MG in Sodium Chloride 0.9% 100 ML IV SCH (16:06)
[2021-08-15] MEDS: Famotidine 20 MG Tab PO SCH (20:30)
[2021-08-15] MEDS ORDERED: traZODone 50 MG Tab PO PRN (23:19)
[2021-08-16] MEDS: Albuterol/Ipratropium 3.0-0.5 MG/3 ML Neb Soln NEB PRN ×4 (06:25→20:27)
[2021-08-16] MEDS: guaiFENesin 600 MG Tab.ER PO SCH ×2 (08:57→19:48)
[2021-08-16] MEDS: Enoxaparin 100 MG/1 ML Syringe SUBCUT SCH ×2 (08:57→19:49)
[2021-08-16] MEDS: Zinc Sulfate 220 MG Cap PO SCH (08:57)
[2021-08-16] MEDS: LORazepam 2 MG/ML SDV IVPUSH PRN (12:37)
[2021-08-16] MEDS: Dexamethasone 4 MG Tab PO SCH (16:14)
--- NOTE | 2021-08-16 16:38 | PCM.PN ---
- General Info Date of Service: 08/16/21 Admission Dx/Problem (Free Text): Admission Diagnosis/Problem Admission Diagnosis/Problem Hypoxia Subjective Update: This is an 81-year-old male who presented to ED on 08/11/2021 with low oxygen saturations and known positive COVID-19 diagnosis. Still complains of shortness of breath. He otherwise denies fever, chills, ju[address] pain, or diarrhea. She is on high flow 60 L CRP is trending to 5.2 today - Review of Systems Systems Review Comment:: General: Reports: No Symptoms HEENT: Reports: No Symptoms Pulmonary: Reports: Shortness of Breath Cardiovascular: Reports: No Symptoms Gastrointestinal: Reports: No Symptoms Genitourinary: Reports: No Symptoms Musculoskeletal: Reports: No Symptoms Skin: Reports: No Symptoms Neurological: Reports: No Symptoms Psychiatric: Reports: No Symptoms - Patient Data Vitals - Most Recent: Last Vital Signs Temp 36.8 C 08/16/21 15:59 Pulse 96 08/16/21 16:00 Resp 28 H 08/16/21 15:59 BP 126/91 H 08/16/21 15:59 Pulse Ox 92 L 08/16/21 16:00 Weight - Most Recent: 86.364 kg I&O - Last 24 Hours: Intake & Output 08/16/21 08/16/21 08/16/21 06:59 14:59 22:59 Intake Total 200 0 120 Output Total 400 Balance -200 0 120 Lab Results Last 24 Hours: Laboratory Results - last 24 hr 08/16/21 08/16/21 Range/Units 06:40 06:40 WBC 14.81 H (4.23-9.07) K/mm3 RBC 5.20 (4.63-6.08) M/mm3 Hgb 15.0 (13.7-17.5) gm/dl Hct 44.4 (40.1-51.0) % MCV 85.4 (79.0-92.2) fl MCH 28.8 (25.7-32.2) pg MCHC 33.8 (32.2-35.5) g/dl RDW Std Deviation 40.7 (35.1-43.9) fL Plt Count 252 (163-337) K/mm3 MPV 11.2 (9.4-12.3) fl Neut % (Auto) 91.7 H (34.0-67.9) % Lymph % (Auto) 2.0 L (21.8-53.1) % Latimer % (Auto) 5.7 (5.3-12.2) % Eos % (Auto) 0 L (0.8-7.0) Baso % (Auto) 0.1 (0.1-1.2) % Neut # (Auto) 13.58 H (1.78-5.38) K/mm3 Lymph # (Auto) 0.29 L (1.32-3.57) K/mm3 Latimer # (Auto) 0.84 H (0.30-0.82) K/mm3 Eos # (Auto) 0.00 L (0.04-0.54) K/mm3 Baso # (Auto) 0.02 (0.01-0.08) K/mm3 Manual Slide Review Abnormal smear Sodium 135 L (136-145) mEq/L Potassium 4.7 (3.5-5.1) mEq/L Chloride 102 (98-107) mEq/L Carbon Dioxide 25 (21-32) mEq/L Anion Gap 12.7 (5-15) BUN 24 H (7-18) mg/dL Creatinine 1.1 (0.7-1.3) mg/dL Est Cr Clr Drug Dosing 50.95 mL/min Estimated GFR (MDRD) > 60 (>60) mL/min BUN/Creatinine Ratio 21.8 H (14-18) Glucose 120 H (70-99) mg/dL Calcium 8.1 L (8.5-10.1) mg/dL Magnesium 2.0 (1.8-2.4) mg/dL Total Bilirubin 1.0 (0.2-1.0) mg/dL AST 47 H (15-37) U/L ALT 48 (16-63) U/L Alkaline Phosphatase 61 (46-116) U/L C-Reactive Protein 5.2 H* (<1.0) mg/dL Total Protein 6.4 (6.4-8.2) g/dl Albumin 2.6 L (3.4-5.0) g/dl Globulin 3.8 gm/dL Albumin/Globulin Ratio 0.7 L (1-2) Med Orders - Current: Current Medications Acetaminophen (Acetaminophen 325 Mg Tab) 650 mg PO Q4H PRN PRN Reason: Pain (Mild 1-3)/fever Last Admin: 08/13/21 22:23 Dose: 650 mg Documented by: Albuterol (Albuterol 6.7 Gm Inhaler) 0 gm INH Q2H PRN PRN Reason: SOB/wheezing Albuterol/Ipratropium (Albuterol/Ipratropium 3.0-0.5 Mg/3 Ml Neb Soln) 3 ml NEB QIDRT PRN PRN Reason: Shortness Of Breath/wheezing Last Admin: 08/16/21 13:23 Dose: 3 ml Documented by: Baricitinib (Baricitinib 2 Mg Tab) 2 mg PO DAILY [facility] Stop: 08/27/21 09:01 Last Admin: 08/16/21 08:57 Dose: 2 mg Documented by: Benzonatate (Benzonatate 100 Mg Cap) 100 mg PO TID PRN PRN Reason: Cough Last Admin: 08/13/21 22:24 Dose: 100 mg Documented by: Dexamethasone (Dexamethasone 4 Mg Tab) 6 mg PO Q24H [facility] Stop: 08/20/21 17:01 Last Admin: 08/16/21 16:14 Dose: 6 mg Documented by: Enoxaparin Sodium (Enoxaparin 100 Mg/1 Ml Syringe) 90 mg SUBCUT BID [facility] Last Admin: 08/16/21 08:57 Dose: 90 mg Documented by: Famotidine (Famotidine 20 Mg Tab) 20 mg PO BEDTIME [facility] Last Admin: 08/15/21 20:30 Dose: 20 mg Documented by: Guaifenesin (Guaifenesin 600 Mg Tab.Er) 600 mg PO BID [facility] Last Admin: 08/16/21 08:57 Dose: 600 mg Documented by: Lorazepam (Lorazepam 2 Mg/Ml Sdv) 0.5 mg IVPUSH Q6H PRN PRN Reason: Anxiety Last Admin: 08/16/21 12:37 Dose: 0.5 mg Documented by: Ondansetron HCl (Ondansetron 4 Mg/2 Ml Sdv) 4 mg IV Q6H PRN PRN Reason: Nausea/Vomiting Senna/Docusate Sodium (Docusate Sodium/Sennosides 50-8.6 Mg Tab) 1 tab PO BID PRN PRN Reason: Constipation Last Admin: 08/14/21 08:30 Dose: 1 tab Documented by: Sodium Chloride (Sodium Chloride 0.9% 10 Ml Syringe) 10 ml FLUSH ASDIRECTED PRN PRN Reason: Keep Vein Open Last Admin: 08/11/21 16:21 Dose: 10 ml Documented by: Trazodone HCl (Trazodone 50 Mg Tab) 50 mg PO BEDTIME PRN PRN Reason: Insomnia Last Admin: 08/15/21 23:51 Dose: 50 mg Documented by: Zinc Sulfate (Zinc Sulfate 220 Mg Cap) 220 mg PO DAILY [facility] Last Admin: 08/16/21 08:57 Dose: 220 mg Documented by: Discontinued Medications Albuterol/Ipratropium (Albuterol/Ipratropium 3.0-0.5 Mg/3 Ml Neb Soln) 3 ml NEB ONETIME ONE Stop: 08/12/21 04:10 Last Admin: 08/12/21 04:19 Dose: 3 ml Documented by: Dexamethasone (Dexamethasone 10 Mg/Ml Sdv) 6 mg IVPUSH ONETIME ONE Stop: 08/11/21 17:13 Last Admin: 08/11/21 17:42 Dose: 6 mg Documented by: Dexamethasone (Dexamethasone 10 Mg/Ml Sdv) 6 mg IVPUSH Q24H [facility] Stop: 08/15/21 19:01 Last Admin: 08/12/21 19:51 Dose: 6 mg Documented by: Enoxaparin Sodium (Enoxaparin 40 Mg/0.4 Ml Syringe) 40 mg SUBCUT BEDTIME [facility] Last Admin: 08/14/21 22:02 Dose: 40 mg Documented by: Hydrochlorothiazide (Hydrochlorothiazide 12.5 Mg Cap) 12.5 mg PO DAILY [facility] Stop: 08/15/21 09:01 Last Admin: 08/13/21 09:25 Dose: 12.5 mg Documented by: Remdesivir 200 mg/ Sodium (Chloride) 250 mls @ 250 mls/hr IV ONETIME ONE Stop: 08/11/21 17:13 Last Admin: 08/11/21 17:42 Dose: 250 mls/hr Documented by: Remdesivir 100 mg/ Sodium (Chloride) 100 mls @ 100 mls/hr IV Q24H [facility] Stop: 08/15/21 19:59 Last Admin: 08/12/21 19:52 Dose: 100 mls/hr Documented by: Remdesivir 100 mg/ Sodium (Chloride) 100 mls @ 100 mls/hr IV Q24H [facility] Stop: 08/15/21 17:59 Last Admin: 08/15/21 16:06 Dose: 100 mls/hr Documented by: Influenza Virus Vaccine (Flu Vacc [id number](65up)/Mf59c/Pf 60 Mcg/0.5 Ml Syringe) 60 mcg IM .ONCE ONE Stop: 08/13/21 13:01 Lisinopril (Lisinopril 10 Mg Tab) 10 mg PO DAILY [facility] Stop: 08/15/21 09:01 Last Admin: 08/13/21 09:25 Dose: 10 mg Documented by: Loperamide HCl (Loperamide 2 Mg Cap) 4 mg PO ONETIME ONE Stop: 08/11/21 15:52 Last Admin: 08/11/21 16:20 Dose: 4 mg Documented by: Polyethylene Glycol (Polyethylene Glycol 3350 Powder 17 Gm Packet) 17 gm PO ONETIME ONE Stop: 08/13/21 17:48 Last Admin: 08/13/21 18:36 Dose: 17 gm Documented by: Potassium Chloride (Potassium Chloride 20 Meq Tab.Er) 40 meq PO BID [facility] Stop: 08/14/21 09:01 Last Admin: 08/13/21 22:24 Dose: 40 meq Documented by: - Exam Physical Findings Comments:: General: Alert, Oriented, Cooperative, No Acute Distress HEENT: Pupils Equal, Pupils Reactive, Mucous Membr. Moist/Galliano Neck: Supple, Trachea Midline Lungs: Normal Respiratory Effort, Decreased Breath Sounds, Crackles, Rhonchi. No: Wheezing GI/Abdominal Exam: Normal Bowel Sounds, Soft, Non-Tender, No Distention (Male) Exam: Deferred Back Exam: Normal Inspection, Full Range of Motion Extremities: Normal Inspection, Normal Range of Motion, Non-Tender, No Pedal Edema, Normal Capillary Refill Skin: Warm, Dry, Intact Neurological: No New Focal Deficit Psy/Mental Status: Alert, Normal Affect, Normal Mood - Patient Data Lab Results Last 24 hrs: Laboratory Results - last 24 hr 08/16/21 08/16/21 Range/Units 06:40 06:40 WBC 14.81 H (4.23-9.07) K/mm3 RBC 5.20 (4.63-6.08) M/mm3 Hgb 15.0 (13.7-17.5) gm/dl Hct 44.4 (40.1-51.0) % MCV 85.4 (79.0-92.2) fl MCH 28.8 (25.7-32.2) pg MCHC 33.8 (32.2-35.5) g/dl RDW Std Deviation 40.7 (35.1-43.9) fL Plt Count 252 (163-337) K/mm3 MPV 11.2 (9.4-12.3) fl Neut % (Auto) 91.7 H (34.0-67.9) % Lymph % (Auto) 2.0 L (21.8-53.1) % Latimer % (Auto) 5.7 (5.3-12.2) % Eos % (Auto) 0 L (0.8-7.0) Baso % (Auto) 0.1 (0.1-1.2) % Neut # (Auto) 13.58 H (1.78-5.38) K/mm3 Lymph # (Auto) 0.29 L (1.32-3.57) K/mm3 Latimer # (Auto) 0.84 H (0.30-0.82) K/mm3 Eos # (Auto) 0.00 L (0.04-0.54) K/mm3 Baso # (Auto) 0.02 (0.01-0.08) K/mm3 Manual Slide Review Abnormal smear Sodium 135 L (136-145) mEq/L Potassium 4.7 (3.5-5.1) mEq/L Chloride 102 (98-107) mEq/L Carbon Dioxide 25 (21-32) mEq/L Anion Gap 12.7 (5-15) BUN 24 H (7-18) mg/dL Creatinine 1.1 (0.7-1.3) mg/dL Est Cr Clr Drug Dosing 50.95 mL/min Estimated GFR (MDRD) > 60 (>60) mL/min BUN/Creatinine Ratio 21.8 H (14-18) Glucose 120 H (70-99) mg/dL Calcium 8.1 L (8.5-10.1) mg/dL Magnesium 2.0 (1.8-2.4) mg/dL Total Bilirubin 1.0 (0.2-1.0) mg/dL AST 47 H (15-37) U/L ALT 48 (16-63) U/L Alkaline Phosphatase 61 (46-116) U/L C-Reactive Protein 5.2 H* (<1.0) mg/dL Total Protein 6.4 (6.4-8.2) g/dl Albumin 2.6 L (3.4-5.0) g/dl Globulin 3.8 gm/dL Albumin/Globulin Ratio 0.7 L (1-2) Result Diagrams: 08/16/21 06:40 08/16/21 06:40 Sepsis Event Note - Evaluation Sepsis Screening Result: Sepsis Risk - Focused Exam Vital Signs: Vital Signs Temp Pulse Pulse Resp BP Pulse Ox Pulse Ox 08/16/21 16:00 94 96 92 L 08/16/21 15:59 36.8 C 89 28 H 126/91 H 80 L 08/16/21 13:23 94 L 08/16/21 12:00 94 L 08/16/21 11:45 94 L 08/16/21 11:43 117 H 147/92 H 82 L 08/16/21 08:30 92 L 08/16/21 08:05 36.8 C 100 22 H 117/87 82 L 08/16/21 06:29 94 L 08/16/21 04:50 36.7 C 86 22 H 132/73 82 L - Problem List Review Problem List Initiated/Reviewed/Updated: Yes - My Orders Last 24 Hours: My Active Orders 08/15/21 23:19 traZODone 50 mg PO BEDTIME PRN 08/16/21 11:54 LORazepam [Ativan] 0.5 mg IVPUSH Q6H PRN - Assessment Assessment:: Admission assessment - 08/13/2021 * This is an 81-year-old male who presented to ED on 08/11/2021 with low oxygen saturations and known positive COVID-19 diagnosis * History of hypertension * Reports he been sick for about a week and noted cough, diarrhea, shortness of breath, and oxygen saturations of 86% on room air. * He did receive the Pfizer vaccine. * He was requiring 6 L with saturations of 86 to 87%. * Labs are obtained: * WBC of 9.66. * Hemoglobin 15.5. * Platelet count 206,000. * Neutrophils are elevated 89.1%. * D-dimer is 1.32. * CRP is 26.2. * Sodium is 138. * Potassium is low at 3.3. * Chloride 97. * Carbon dioxide 28. * Anion gap is 16.3. * BUN is 37. Creatinine 1.8. GFR is 36. * Glucose is 114. * Calcium is 8.0. * Magnesium is 1.9. * Total bilirubin 0.6. * AST is 63, ALT 42, alkaline phosphatase 35. * Albumin is 2.9. * Total protein 7.1. * He is given dexamethasone and remdesivir in the ED. * Chest x-ray is obtained showing patchy areas of increased density within both sides of the chest. Difficult to completely exclude Covid pneumonia. Please correlate with patient's symptoms. Other findings are noted to be incidental. * Patient was requiring admission and unfortunately our facility and every other facility in the state were on diversion. * Remained for approximately 2 days in the emergency room with worsening saturations. * He was shifted to a nonrebreather and ultimately started on high flow oxygen. * Ultimately a bed in our facility does open up and the patient is admitted to the medical surgical floor inpatient with telemetry for further management of his COVID-19 pneumonia and hypoxia. 08/14/2021 This is an 81-year-old male admitted to the floor for worsening Covid pneumonia symptoms. He continues on dexamethasone and remdesivir. Today we discussed baricitinib and he agreed to proceed with this treatment. He remains on high flow oxygen at 60 L with an FiO2 of 90%. Labs today show WBC of 11.82. Hemoglobin is 14.6. Platelet 208,000. Neutrophils are elevated at 91.8%. Sodium is 135. Potassium is up to 4.0. Chloride is 101. Carbon dioxide 26. Anion gap is 12.0. BUN is 35. Creatinine is improved to 1.2. GFR is up to 58. Glucose is 147. Calcium 7.9. Magnesium 1.9. Total bilirubin 0.5. AST is 58, ALT 45, alkaline phosphatase 37. CRP is 8.3. Protein 5.7. Albumin is down to 2.3. Procalcitonin from yesterday returned at 0.81. Overall lab values have improved. We will continue current treatment plan. Unknown length of stay due to severity of symptoms. 08/15/2021 This is an 81-year-old male who presented to ED on 08/11/2021 with low oxygen saturations and known positive COVID-19 diagnosis. Still complains of shortness of breath. She is on high flow 60 L or nonrebreather D-dimer 136 Creatinine 1.1, GFR > 60 CRP trending down to 6.0 08/16/2021 This is an 81-year-old male who presented to ED on 08/11/2021 with low oxygen saturations and known positive COVID-19 diagnosis. Still complains of shortness of breath. He otherwise denies fever, chills, chest pain, or diarrhea. She is on high flow 60 L CRP is trending to 5.2 today - Plan Plan:: COVID-19 Hypoxia Elevated d-dimer Elevated C-reactive protein COVID-19 vaccine series completed. * Airborne/contact precautions * As needed DuoNebs * As needed albuterol MDI * RT consultation * I-S * O2 as needed with goal saturations of 90 to 95% * Continue high flow as directed * 600 mg Mucinex twice daily * As needed Tylenol * Telemetry * Continuous pulse oximetry * Prone whenever able * Ambulate around the room * Lovenox 90 mg Bid * Daily labs * Every 48 hour D-dimer * Famotidine 20 mg twice daily * Zinc supplementation * Check procalcitonin * 6 mg dexamethasone daily for 10 total days * Remdesivir daily for 5 total days * Baricitinib * As needed Tessalon Perles for cough * PT/OT evaluation * Case management/social work for discharge planning * Start baricitinib today for a total of 14 days or until discharge Scalp laceration * From prior fall on 08/08/2021 * Remove in 7 to 10 days from initial injury Hypokalemia, resolved * Monitor labs HTN (hypertension) * Hold home BP meds * Monitor blood pressure Code status: Full code PCP: Dr. Gilbert DVT prophylaxis: Lovenox Social: Patient resides in a home in [place] with his . Disposition: Admitted to the floor on telemetry for management of COVID-19 pneumonia with hypoxia. Length of stay likely 4 to 5 days pending improvement. I spoke with Chon to provide information about baricitinib. I offered the "fax sheet for patients and parents/caregivers, for baricitinib" to read and review. I stated that therapy has been approved by an emergency use authorization process and has not fully been FDA reviewed or approved. I shared potential risks from the therapy including increased risk for serious infections, anaphylaxis, and reaction to medication. I discussed there are other potential treatment options that are currently not FDA approved to treat COVID-19. Offered opportunity to ask questions and all questions were answered. Chon voiced understanding and agreed to proceed with treatment. Prognosis: very guarded.
[2021-08-16] MEDS: Famotidine 20 MG Tab PO SCH (19:48)
[2021-08-17] MEDS: Famotidine 20 MG Tab PO SCH (00:06)
[2021-08-17] MEDS: guaiFENesin 600 MG Tab.ER PO SCH ×3 (00:06→21:40)
[2021-08-17] MEDS: Enoxaparin 100 MG/1 ML Syringe SUBCUT SCH ×3 (00:06→21:30)
[2021-08-17] MEDS: LORazepam 2 MG/ML SDV IVPUSH PRN ×2 (01:39→09:00)
[2021-08-17] MEDS: Albuterol/Ipratropium 3.0-0.5 MG/3 ML Neb Soln NEB PRN ×3 (05:19→21:04)
[2021-08-17] MEDS ORDERED: Iopamidol 755 Mg/ML 100 ML Bottle IVPUSH ONE (08:50)
[2021-08-17] MEDS ORDERED: Sodium Chloride 0.9% 10 ML Syringe FLUSH PRN (08:50)
[2021-08-17] MEDS ORDERED: Sodium Chloride 0.9% 100 ML IV SCH (09:00)
[2021-08-17] MEDS ORDERED: Sodium Chloride 0.9% 1,000 ML ONE (09:31)
[2021-08-17] MEDS ORDERED: Phenylephrine 1% 10 MG/ML SDV ONE (09:35)
[2021-08-17] MEDS ORDERED: Succinylcholine 200 MG/10 ML MDV ONE (09:35)
[2021-08-17] MEDS ORDERED: Propofol 200 MG/20 ML SDV ONE ×2 (09:35)
[2021-08-17] MEDS ORDERED: Midazolam 1 MG/ML 5 ML SDV ONE (09:35)
[2021-08-17] MEDS ORDERED: Rocuronium 50 MG/5 ML Vial ONE ×2 (09:35→11:02)
[2021-08-17] MEDS ORDERED: propofoL 100 ML ONE (10:13)
[2021-08-17] MEDS: propofoL 100 ML IV SCH ×2 (10:30→16:52)
[2021-08-17] MEDS ORDERED: Diltiazem 50 MG/10 ML SDV IVPUSH ONE (10:38)
[2021-08-17] MEDS ORDERED: Diltiazem 50 MG/10 ML SDV ONE (10:39)
--- NOTE | 2021-08-17 11:02 | CR ---
Chest: Frontal view of the chest was obtained. Comparison: Prior chest x-ray of 08/11/21. Patchy increased density is seen within both sides of the chest. Heart size and mediastinum are stable. Endotracheal tube is seen. Tip lies approximately 1.6 cm above the reny. Bony structures show nothing acute. Impression: 1. Patchy increased density within both sides of the chest. These findings are fairly stable from prior exam. 2. Endotracheal tube with tip lying about 1.6 cm above the reny. Diagnostic code #3
[2021-08-17] MEDS ORDERED: Rocuronium 50 MG/5 ML Vial IVPUSH ONE (11:08)
[2021-08-17] MEDS: Zinc Sulfate 220 MG Cap PO SCH (11:12)
--- NOTE | 2021-08-17 11:43 | PCM.PN ---
- General Info Date of Service: 08/17/21 Admission Dx/Problem (Free Text): Admission Diagnosis/Problem Admission Diagnosis/Problem Hypoxia Subjective Update: Patient was seen on rounds this morning as I was called by nursing staff to evaluate him. O2 saturations on 60 L and 95% as well as a nonrebreather mask at 15 L were in the 70s. Patient was very tachypneic in the 40s. Patient was also very anxious and pulling at his nonrebreather mask. Case was discussed with Dr. Castillo and the patient's and subsequently was intubated. I phoned [facility] in [place] as well as [facility] in [place] and [facility] in [place]. They did not have any ICU beds available. I then called the [facility] and they state they will look for placement for this patient. Functional Status: Reports: Pain Controlled - Review of Systems General: Reports: Fatigue, Other (Severe respiratory distress with tachypnea and anxiety and diaphoresis) HEENT: Reports: No Symptoms Pulmonary: Reports: Shortness of Breath (Severe respiratory distress) Cardiovascular: Reports: Other (Dyspnea and tachypnea at rest). Denies: Chest Pain, Palpitations, Edema Gastrointestinal: Reports: No Symptoms Genitourinary: Reports: No Symptoms Musculoskeletal: Reports: No Symptoms Skin: Reports: No Symptoms Neurological: Reports: No Symptoms Psychiatric: Reports: Anxiety - Patient Data Vitals - Most Recent: Last Vital Signs Temp 99.5 F 08/17/21 04:53 Pulse 131 H 08/17/21 11:11 Resp 24 H 08/17/21 11:11 BP 144/70 H 08/17/21 11:11 Pulse Ox 89 L 08/17/21 11:11 Weight - Most Recent: 186 lb 11.2 oz I&O - Last 24 Hours: Intake & Output 08/16/21 08/17/21 08/17/21 22:59 06:59 14:59 Intake Total 1460 Output Total 375 200 Balance 1085 -200 Lab Results Last 24 Hours: Laboratory Results - last 24 hr 08/17/21 08/17/21 08/17/21 Range/Units 05:55 05:55 05:55 WBC 12.09 H (4.23-9.07) K/mm3 RBC 4.96 (4.63-6.08) M/mm3 Hgb 14.3 (13.7-17.5) gm/dl Hct 42.4 (40.1-51.0) % MCV 85.5 (79.0-92.2) fl MCH 28.8 (25.7-32.2) pg MCHC 33.7 (32.2-35.5) g/dl RDW Std Deviation 40.7 (35.1-43.9) fL Plt Count 246 (163-337) K/mm3 MPV 11.1 (9.4-12.3) fl Neut % (Auto) 93.1 H (34.0-67.9) % Lymph % (Auto) 1.3 L (21.8-53.1) % [place] % (Auto) 4.7 L (5.3-12.2) % Eos % (Auto) 0 L (0.8-7.0) Baso % (Auto) 0.1 (0.1-1.2) % Neut # (Auto) 11.25 H (1.78-5.38) K/mm3 Lymph # (Auto) 0.16 L (1.32-3.57) K/mm3 [place] # (Auto) 0.57 (0.30-0.82) K/mm3 Eos # (Auto) 0.00 L (0.04-0.54) K/mm3 Baso # (Auto) 0.01 (0.01-0.08) K/mm3 Manual Slide Review Abnormal smear D-Dimer, Quantitative 0.96 H (0.19-0.50) mg/L Sodium 133 L (136-145) mEq/L Potassium 4.7 (3.5-5.1) mEq/L Chloride 102 (98-107) mEq/L Carbon Dioxide 21 (21-32) mEq/L Anion Gap 14.7 (5-15) BUN 32 H (7-18) mg/dL Creatinine 1.2 (0.7-1.3) mg/dL Est Cr Clr Drug Dosing 46.71 mL/min Estimated GFR (MDRD) 58 (>60) mL/min BUN/Creatinine Ratio 26.7 H (14-18) Glucose 158 H (70-99) mg/dL Calcium 7.8 L (8.5-10.1) mg/dL Magnesium 2.1 (1.8-2.4) mg/dL Total Bilirubin 1.1 H (0.2-1.0) mg/dL AST 35 (15-37) U/L ALT 48 (16-63) U/L Alkaline Phosphatase 73 (46-116) U/L C-Reactive Protein 4.3 H* (<1.0) mg/dL Total Protein 6.1 L (6.4-8.2) g/dl Albumin 2.5 L (3.4-5.0) g/dl Globulin 3.6 gm/dL Albumin/Globulin Ratio 0.7 L (1-2) Med Orders - Current: Current Medications Acetaminophen (Acetaminophen 325 Mg Tab) 650 mg PO Q4H PRN PRN Reason: Pain (Mild 1-3)/fever Last Admin: 08/13/21 22:23 Dose: 650 mg Documented by: Albuterol (Albuterol 6.7 Gm Inhaler) 0 gm INH Q2H PRN PRN Reason: SOB/wheezing Albuterol/Ipratropium (Albuterol/Ipratropium 3.0-0.5 Mg/3 Ml Neb Soln) 3 ml NEB QIDRT PRN PRN Reason: Shortness Of Breath/wheezing Last Admin: 08/17/21 08:52 Dose: 3 ml Documented by: Baricitinib (Baricitinib 2 Mg Tab) 2 mg PO DAILY [facility] Stop: 08/27/21 09:01 Last Admin: 08/17/21 11:12 Dose: Not Given Documented by: Benzonatate (Benzonatate 100 Mg Cap) 100 mg PO TID PRN PRN Reason: Cough Last Admin: 08/13/21 22:24 Dose: 100 mg Documented by: Dexamethasone (Dexamethasone 4 Mg Tab) 6 mg PO Q24H [facility] Stop: 08/20/21 17:01 Last Admin: 08/16/21 16:14 Dose: 6 mg Documented by: Enoxaparin Sodium (Enoxaparin 100 Mg/1 Ml Syringe) 90 mg SUBCUT BID [facility] Last Admin: 08/17/21 00:06 Dose: Not Given Documented by: Famotidine (Famotidine 20 Mg Tab) 20 mg PO BEDTIME [facility] Last Admin: 08/17/21 00:06 Dose: Not Given Documented by: Guaifenesin (Guaifenesin 600 Mg Tab.Er) 600 mg PO BID [facility] Last Admin: 08/17/21 11:12 Dose: Not Given Documented by: Sodium Chloride (Normal Saline) 100 mls @ 75 mls/hr IV ASDIRECTED [facility] Stop: 08/17/21 12:00 Last Admin: 08/17/21 10:46 Dose: 75 mls/hr Documented by: Propofol (Diprivan 100 Ml) 100 mls @ 12.703 mls/hr IV TITRATE [facility]ER; Protocol Last Titration: 08/17/21 11:00 Dose: 40 mcg/kg/min, 20.325 mls/hr Documented by: Lorazepam (Lorazepam 2 Mg/Ml Sdv) 0.5 mg IVPUSH Q6H PRN PRN Reason: Anxiety Last Admin: 08/17/21 09:00 Dose: 0.5 mg Documented by: Ondansetron HCl (Ondansetron 4 Mg/2 Ml Sdv) 4 mg IV Q6H PRN PRN Reason: Nausea/Vomiting Senna/Docusate Sodium (Docusate Sodium/Sennosides 50-8.6 Mg Tab) 1 tab PO BID PRN PRN Reason: Constipation Last Admin: 08/14/21 08:30 Dose: 1 tab Documented by: Sodium Chloride (Sodium Chloride 0.9% 10 Ml Syringe) 10 ml FLUSH ASDIRECTED PRN PRN Reason: Keep Vein Open Last Admin: 08/11/21 16:21 Dose: 10 ml Documented by: Sodium Chloride (Sodium Chloride 0.9% 10 Ml Syringe) 10 ml FLUSH ONETIME PRN PRN Reason: IV FLUSH Trazodone HCl (Trazodone 50 Mg Tab) 50 mg PO BEDTIME PRN PRN Reason: Insomnia Last Admin: 08/15/21 23:51 Dose: 50 mg Documented by: Zinc Sulfate (Zinc Sulfate 220 Mg Cap) 220 mg PO DAILY [facility] Last Admin: 08/17/21 11:12 Dose: Not Given Documented by: Discontinued Medications Albuterol/Ipratropium (Albuterol/Ipratropium 3.0-0.5 Mg/3 Ml Neb Soln) 3 ml NEB ONETIME ONE Stop: 08/12/21 04:10 Last Admin: 08/12/21 04:19 Dose: 3 ml Documented by: Dexamethasone (Dexamethasone 10 Mg/Ml Sdv) 6 mg IVPUSH ONETIME ONE Stop: 08/11/21 17:13 Last Admin: 08/11/21 17:42 Dose: 6 mg Documented by: Dexamethasone (Dexamethasone 10 Mg/Ml Sdv) 6 mg IVPUSH Q24H [facility] Stop: 08/15/21 19:01 Last Admin: 08/12/21 19:51 Dose: 6 mg Documented by: Diltiazem HCl (Diltiazem 50 Mg/10 Ml Sdv) 20 mg IVPUSH ONETIME ONE Stop: 08/17/21 10:39 Last Admin: 08/17/21 10:47 Dose: 20 mg Documented by: Diltiazem HCl (Diltiazem 50 Mg/10 Ml Sdv) Confirm Administered Dose 50 mg .ROUTE .STK-MED ONE Stop: 08/17/21 10:40 Last Admin: 08/17/21 10:46 Dose: Not Given Documented by: Enoxaparin Sodium (Enoxaparin 40 Mg/0.4 Ml Syringe) 40 mg SUBCUT BEDTIME [facility] Last Admin: 08/14/21 22:02 Dose: 40 mg Documented by: Hydrochlorothiazide (Hydrochlorothiazide 12.5 Mg Cap) 12.5 mg PO DAILY [facility] Stop: 08/15/21 09:01 Last Admin: 08/13/21 09:25 Dose: 12.5 mg Documented by: Remdesivir 200 mg/ Sodium (Chloride) 250 mls @ 250 mls/hr IV ONETIME ONE Stop: 08/11/21 17:13 Last Admin: 08/11/21 17:42 Dose: 250 mls/hr Documented by: Remdesivir 100 mg/ Sodium (Chloride) 100 mls @ 100 mls/hr IV Q24H [facility] Stop: 08/15/21 19:59 Last Admin: 08/12/21 19:52 Dose: 100 mls/hr Documented by: Remdesivir 100 mg/ Sodium (Chloride) 100 mls @ 100 mls/hr IV Q24H [facility] Stop: 08/15/21 17:59 Last Admin: 08/15/21 16:06 Dose: 100 mls/hr Documented by: Sodium Chloride (Normal Saline) Confirm Administered Dose 1,000 mls @ as directed .ROUTE .STK-MED ONE Stop: 08/17/21 09:32 Last Admin: 08/17/21 10:46 Dose: Not Given Documented by: Propofol (Diprivan 100 Ml) Confirm Administered Dose 100 mls @ as directed .ROUTE .STK-MED ONE Stop: 08/17/21 10:14 Last Admin: 08/17/21 10:49 Dose: Not Given Documented by: Influenza Virus Vaccine (Flu Vacc Vq1145(65up)/Mf59c/Pf 60 Mcg/0.5 Ml Syringe) 60 mcg IM .ONCE ONE Stop: 08/13/21 13:01 Iopamidol (Iopamidol 755 Mg/Ml 100 Ml Bottle) 100 ml IVPUSH ONETIME ONE Stop: 08/17/21 08:51 Lisinopril (Lisinopril 10 Mg Tab) 10 mg PO DAILY [facility] Stop: 08/15/21 09:01 Last Admin: 08/13/21 09:25 Dose: 10 mg Documented by: Loperamide HCl (Loperamide 2 Mg Cap) 4 mg PO ONETIME ONE Stop: 08/11/21 15:52 Last Admin: 08/11/21 16:20 Dose: 4 mg Documented by: Midazolam HCl (Midazolam 1 Mg/Ml 5 Ml Sdv) 5 mg .ROUTE .STK-MED ONE Stop: 08/17/21 09:36 Phenylephrine HCl (Phenylephrine 1% 10 Mg/Ml Sdv) 10 mg .ROUTE .STK-MED ONE Stop: 08/17/21 09:36 Polyethylene Glycol (Polyethylene Glycol 3350 Powder 17 Gm Packet) 17 gm PO ONETIME ONE Stop: 08/13/21 17:48 Last Admin: 08/13/21 18:36 Dose: 17 gm Documented by: Potassium Chloride (Potassium Chloride 20 Meq Tab.Er) 40 meq PO BID [facility] Stop: 08/14/21 09:01 Last Admin: 08/13/21 22:24 Dose: 40 meq Documented by: Propofol (Propofol 200 Mg/20 Ml Sdv) 200 mg .ROUTE .STK-MED ONE Stop: 08/17/21 09:36 Propofol (Propofol 200 Mg/20 Ml Sdv) 200 mg .ROUTE .STK-MED ONE Stop: 08/17/21 09:36 Rocuronium [place] (Rocuronium 50 Mg/5 Ml Vial) 50 mg .ROUTE .STK-MED ONE Stop: 08/17/21 09:36 Rocuronium [place] (Rocuronium 50 Mg/5 Ml Vial) Confirm Administered Dose 50 mg .ROUTE .STK-MED ONE Stop: 08/17/21 11:03 Last Admin: 08/17/21 11:09 Dose: Not Given Documented by: Rocuronium [place] (Rocuronium 50 Mg/5 Ml Vial) 50 mg IVPUSH ONETIME ONE Stop: 08/17/21 11:09 Last Admin: 08/17/21 11:09 Dose: 50 mg Documented by: Succinylcholine Chloride (Succinylcholine 200 Mg/10 Ml Mdv) 200 mg .ROUTE .STK-MED ONE Stop: 08/17/21 09:36 - Exam Quality Assessment: Supplemental Oxygen (Flow O2 at 60 L/min and 95% as well as nonrebreather mask at 15 L), Urine Catheter (Inserted after intubation), DVT Prophylaxis (Lovenox) General: Alert, Oriented, Severe Distress (Respiratory) HEENT: Pupils Equal, Pupils Reactive, Mucous Membr. Moist/[place] Neck: Supple, Trachea Midline Lungs: Crackles (Bilaterally). No: Normal Respiratory Effort (Tachypnea in the 40s; patient is hypoxic with O2 saturations in the 70s on high flow O2 at 60 L and 95% as well as nonrebreather mask at 15 L) Cardiovascular: Irregular Rhythm (New onset atrial fibrillation with RVR), Tachycardia GI/Abdominal Exam: Normal Bowel Sounds, Soft, Non-Tender, No Distention (Male) Exam: Deferred Back Exam: Normal Inspection Extremities: Normal Inspection, Normal Range of Motion, No Pedal Edema Peripheral Pulses: 2+: Radial (L), Radial (R) Skin: Warm, Intact. No: Dry (Diaphoretic) Neurological: No New Focal Deficit Psy/Mental Status: Alert, Anxious - Patient Data Lab Results Last 24 hrs: Laboratory Results - last 24 hr 08/17/21 08/17/21 08/17/21 Range/Units 05:55 05:55 05:55 WBC 12.09 H (4.23-9.07) K/mm3 RBC 4.96 (4.63-6.08) M/mm3 Hgb 14.3 (13.7-17.5) gm/dl Hct 42.4 (40.1-51.0) % MCV 85.5 (79.0-92.2) fl MCH 28.8 (25.7-32.2) pg MCHC 33.7 (32.2-35.5) g/dl RDW Std Deviation 40.7 (35.1-43.9) fL Plt Count 246 (163-337) K/mm3 MPV 11.1 (9.4-12.3) fl Neut % (Auto) 93.1 H (34.0-67.9) % Lymph % (Auto) 1.3 L (21.8-53.1) % [place] % (Auto) 4.7 L (5.3-12.2) % Eos % (Auto) 0 L (0.8-7.0) Baso % (Auto) 0.1 (0.1-1.2) % Neut # (Auto) 11.25 H (1.78-5.38) K/mm3 Lymph # (Auto) 0.16 L (1.32-3.57) K/mm3 [place] # (Auto) 0.57 (0.30-0.82) K/mm3 Eos # (Auto) 0.00 L (0.04-0.54) K/mm3 Baso # (Auto) 0.01 (0.01-0.08) K/mm3 Manual Slide Review Abnormal smear D-Dimer, Quantitative 0.96 H (0.19-0.50) mg/L Sodium 133 L (136-145) mEq/L Potassium 4.7 (3.5-5.1) mEq/L Chloride 102 (98-107) mEq/L Carbon Dioxide 21 (21-32) mEq/L Anion Gap 14.7 (5-15) BUN 32 H (7-18) mg/dL Creatinine 1.2 (0.7-1.3) mg/dL Est Cr Clr Drug Dosing 46.71 mL/min Estimated GFR (MDRD) 58 (>60) mL/min BUN/Creatinine Ratio 26.7 H (14-18) Glucose 158 H (70-99) mg/dL Calcium 7.8 L (8.5-10.1) mg/dL Magnesium 2.1 (1.8-2.4) mg/dL Total Bilirubin 1.1 H (0.2-1.0) mg/dL AST 35 (15-37) U/L ALT 48 (16-63) U/L Alkaline Phosphatase 73 (46-116) U/L C-Reactive Protein 4.3 H* (<1.0) mg/dL Total Protein 6.1 L (6.4-8.2) g/dl Albumin 2.5 L (3.4-5.0) g/dl Globulin 3.6 gm/dL Albumin/Globulin Ratio 0.7 L (1-2) Result Diagrams: 08/17/21 05:55 08/17/21 05:55 Sepsis Event Note - Evaluation Sepsis Screening Result: Severe Sepsis Risk - Focused Exam Vital Signs: Vital Signs Temp Pulse Pulse Resp BP BP Pulse Ox 08/17/21 11:11 131 H 24 H 144/70 H 89 L 08/17/21 09:47 08/17/21 08:53 08/17/21 05:21 08/17/21 04:53 99.5 F 115 H 40 H 126/78 79 L 08/17/21 04:01 78 81 L 08/17/21 01:21 98.1 F 91 32 H 115/76 91 L Pulse Ox Pulse Ox 08/17/21 11:11 08/17/21 09:47 85 L 08/17/21 08:53 85 L 08/17/21 05:21 86 L 08/17/21 04:53 08/17/21 04:01 08/17/21 01:21 - Problem List & Annotations (1) Atrial fibrillation with RVR SNOMED Code(s): 741038084219959 Code(s): I48.91 - UNSPECIFIED ATRIAL FIBRILLATION Status: Acute Priority: High Current Visit: Yes (2) Respiratory failure with hypoxia SNOMED Code(s): 74432779805941868 Code(s): J96.91 - RESPIRATORY FAILURE, UNSPECIFIED WITH HYPOXIA Status: Acute Priority: High Current Visit: Yes Qualifiers: Chronicity: unspecified Qualified Code(s): J96.91 - Respiratory failure, unspecified with hypoxia (3) COVID-19 SNOMED Code(s): 773176907 Code(s): U07.1 - COVID-19 Status: Acute Priority: High Current Visit: Yes (4) Elevated C-reactive protein SNOMED Code(s): 959750530714300 Code(s): R79.82 - ELEVATED C-REACTIVE PROTEIN (CRP) Status: Acute Pr iority: High Current Visit: Yes (5) Elevated d-dimer SNOMED Code(s): 170116883 Code(s): R79.89 - OTHER SPECIFIED ABNORMAL FINDINGS OF BLOOD CHEMISTRY Status: Acute Priority: High Current Visit: Yes (6) HTN (hypertension) SNOMED Code(s): 32596140 Code(s): I10 - ESSENTIAL (PRIMARY) HYPERTENSION Status: Acute Priority: High Current Visit: Yes Qualifiers: Hypertension type: unspecified Qualified Code(s): I10 - Essential (primary) hypertension (7) Hypoxia SNOMED Code(s): 052004056 Code(s): R09.02 - HYPOXEMIA Status: Acute Priority: High Current Visit: Yes (8) COVID-19 vaccine series completed SNOMED Code(s): 547620156, 432033316 Code(s): Z92.29 - PERSONAL HISTORY OF OTHER DRUG THERAPY Status: Chronic Priority: Medium Current Visit: Yes (9) Scalp laceration SNOMED Code(s): 996832068 Code(s): S01.01XA - LACERATION WITHOUT FOREIGN BODY OF SCALP, INITIAL ENCOUNTER Status: Chronic Priority: Medium Current Visit: Yes - Problem List Review Problem List Initiated/Reviewed/Updated: Yes - My Orders Last 24 Hours: My Active Orders 08/17/21 05:55 PROCALCITONIN [REF] Stat 08/17/21 08:47 CTA Chest W WO Contrast [Ang Chest] [CT] Stat 08/17/21 10:50 RASS Sedation Scale [RC] ASDIRECTED Desired Level of Sedation (RASS) [AST] Click to Edit 08/17/21 11:00 propofoL [Diprivan 100 ML] 100 ml IV TITRATE - Assessment Assessment:: Admission assessment - 08/13/2021 * This is an 81-year-old male who presented to ED on 08/11/2021 with low oxygen saturations and known positive COVID-19 diagnosis * History of hypertension * Reports he been sick for about a week and noted cough, diarrhea, shortness of breath, and oxygen saturations of 86% on room air. * He did receive the Pfizer vaccine. * He was requiring 6 L with saturations of 86 to 87%. * Labs are obtained: * WBC of 9.66. * Hemoglobin 15.5. * Platelet count 206,000. * Neutrophils are elevated 89.1%. * D-dimer is 1.32. * CRP is 26.2. * Sodium is 138. * Potassium is low at 3.3. * Chloride 97. * Carbon dioxide 28. * Anion gap is 16.3. * BUN is 37. Creatinine 1.8. GFR is 36. * Glucose is 114. * Calcium is 8.0. * Magnesium is 1.9. * Total bilirubin 0.6. * AST is 63, ALT 42, alkaline phosphatase 35. * Albumin is 2.9. * Total protein 7.1. * He is given dexamethasone and remdesivir in the ED. * Chest x-ray is obtained showing patchy areas of increased density within both sides of the chest. Difficult to completely exclude Covid pneumonia. Please correlate with patient's symptoms. Other findings are noted to be incidental. * Patient was requiring admission and unfortunately our facility and every other facility in the state were on diversion. * Remained for approximately 2 days in the emergency room with worsening saturations. * He was shifted to a nonrebreather and ultimately started on high flow oxygen. * Ultimately a bed in our facility does open up and the patient is admitted to the medical surgical floor inpatient with telemetry for further management of his COVID-19 pneumonia and hypoxia. 08/14/2021 This is an 81-year-old male admitted to the floor for worsening Covid pneumonia symptoms. He continues on dexamethasone and remdesivir. Today we discussed baricitinib and he agreed to proceed with this treatment. He remains on high flow oxygen at 60 L with an FiO2 of 90%. Labs today show WBC of 11.82. Hemoglobin is 14.6. Platelet 208,000. Neutrophils are elevated at 91.8%. Sodium is 135. Potassium is up to 4.0. Chloride is 101. Carbon dioxide 26. Anion gap is 12.0. BUN is 35. Creatinine is improved to 1.2. GFR is up to 58. Glucose is 147. Calcium 7.9. Magnesium 1.9. Total bilirubin 0.5. AST is 58, ALT 45, alkaline phosphatase 37. CRP is 8.3. Protein 5.7. Albumin is down to 2.3. Procalcitonin from yesterday returned at 0.81. Overall lab values have improved. We will continue current treatment plan. Unknown length of stay due to severity of symptoms. 08/15/2021 This is an 81-year-old male who presented to ED on 08/11/2021 with low oxygen saturations and known positive COVID-19 diagnosis. Still complains of shortness of breath. She is on high flow 60 L or nonrebreather D-dimer 136 Creatinine 1.1, GFR > 60 CRP trending down to 6.0 08/16/2021 This is an 81-year-old male who presented to ED on 08/11/2021 with low oxygen saturations and known positive COVID-19 diagnosis. Still complains of shortness of breath. He otherwise denies fever, chills, chest pain, or diarrhea. She is on high flow 60 L CRP is trending to 5.2 today 08/17/21 81-year-old male presents to the emergency department on 08/11/2021 with complaints of low oxygen saturations and positive Covid testing. Patient does have a history of Covid vaccination with the flck.me vaccine. Patient with significant tachypnea and hypoxia this morning despite being on high flow oxygen at 60 L and 95% as well as a nonrebreather mask at 15 L. O2 saturations were in the 70s. Patient was also tachypneic in the 40s and was very anxious pulling at his nonrebreather mask. DuoNeb and Ativan 0.5 mg IV were ordered on the patient as well as a CTA of the lungs. Case was discussed with Dr. Castillo and the patient's and was subsequently intubated. Chest x-ray was completed after intubation which showed good placement of ET tube. Patient was then moved to the emergency department. Propofol was initiated for sedation. EKG was completed and patient was in a new onset atrial fibrillation with RVR in the 150s to the 160s. 10 mg Cardizem bolus was ordered and repeated. Patient's heart rate came down to the 100s to 1 teens. Cardizem drip was then started on the patient. Patient is anticoagulated on Lovenox 90 mg twice daily.Hematology reveals a WBC of 12.09 which is down from 14.1, D-dimer 0.96 which is down from 1.36, Chemistry reveals a sodium of 133, potassium 4.7, chloride 102, carbon dioxide 21, anion gap 14.7, BUN 32, creatinine 1.2, glucose 158, calcium 7.8, magnesium 2.1, total bilirubin 1.1, AST 35, ALT 48, C-reactive protein down to 4.3, ABGs post intubation on FiO2 of 100% reveal a pH of 7.29, PCO2 47.4, PO2 71.0, bicarb 21.9, O2 saturation 89.5 with a base excess of -4.5. Nursing staff notifies me that the patient's propofol drip is being titrated however he does still seem to be uncomfortable coughing against the tube as well as moving his hands. I have ordered for them to give him Versed 2.5 mg and to start a fentanyl drip on the patient. Patient subsequently converted back into a normal sinus rhythm after being on a Cardizem drip for a short time. Patient then went hypotensive with systolic blood pressures in the 50s. Cardizem drip was discontinued. Consulted with Dr. Castillo who agreed the patient should be started on Levophed drip. - Plan Plan:: COVID-19 Hypoxia Elevated d-dimer Elevated C-reactive protein COVID-19 vaccine series completed. * Patient is intubated * Airborne/contact precautions * As needed DuoNebs * As needed albuterol MDI * RT consultation * O2 as needed with goal saturations of 90 to 95% * Telemetry * Continuous pulse oximetry * Prone whenever able * Nursing staff to reposition every 2 hours * Lovenox 90 mg Bid * Daily labs * Every 48 hour D-dimer * Check procalcitonin * 6 mg dexamethasone daily for 10 total days * Remdesivir daily for 5 total days * Baricitinib * PT/OT evaluation-on hold * Case management/social work for discharge planning * Start baricitinib today for a total of 14 days or until discharge * Awaiting bed placement at a higher level of care * Propofol drip * Fentanyl drip * ABGs * Levophed drip Scalp laceration * From prior fall on 08/08/2021 * Remove in 7 to 10 days from initial injury Hypokalemia, resolved * Monitor labs HTN (hypertension) * Hold home BP meds * Monitor blood pressure New onset atrial fibrillation with RVR * Cardizem drip-pt converted and drip was discontinued Code status: Full code PCP: Dr. Gilbert DVT prophylaxis: Lovenox Social: Patient resides in a home in [place] with his . Disposition: Transfer to a higher level of care due to intubation. Unknown length of stay due to intubation and severity of Covid. I spoke with Chon to provide information about baricitinib. I offered the "fax sheet for patients and parents/caregivers, for baricitinib" to read and review. I stated that therapy has been approved by an emergency use authorization process and has not fully been FDA reviewed or approved. I shared potential risks from the therapy including increased risk for serious inf ections, anaphylaxis, and reaction to medication. I discussed there are other potential treatment options that are currently not FDA approved to treat COVID- 19. Offered opportunity to ask questions and all questions were answered. Chon voiced understanding and agreed to proceed with treatment. Prognosis: very guarded.
[2021-08-17] MEDS ORDERED: Diltiazem 100 MG in Sodium Chloride 0.9% 100 ML IV SCH (12:00)
[2021-08-17] MEDS ORDERED: Midazolam 1 MG/ML 2 ML SDV IVPUSH ONE (12:40)
[2021-08-17] MEDS ORDERED: Midazolam 1 MG/ML 2 ML SDV ONE (12:42)
--- NOTE | 2021-08-17 13:05 | PCM.SN.2 ---
- Free Text/Narrative Note: Anesthesia Note: Anesthesia requested for Airway management (intubation) for Covid + patient who is exhibiting Respiratory Failure. Patient awake, responsive, and procedure explained to patient and also informed via phone call. Please refer to procedure notes for exact times, and vital signs: Verbal reassurance given to patient prior to sedation. Versed 2mg IV given. Propofol started to be administered, then IV on right arm infiltrated. Patients sat's and Vital signs remained stable. New IV started to Left hand. Propofol 200 mg given IV given and followed by 140 mg of sux's. Size 8 ETT placed times one attempt, secured at 24cm at the lip. (Grade III view noted.) + ETCO2, bilateral breath sounds noted, with portable CXR ordered. Respiratory Therapist assisted and available to place on ventilator with ventilator settings per COVID protocol. ABG in 30 minutes requested. Spontaneous respirations resumed: Zemeron 50mg IV given. Blood pressure dropped temporarily with Phenylephrine bumps: 100mcg given with nice response noted. Toya INVENTORY TECHNICIAN states that she will manage sedation and the management of this patient until bed availability present and then patient prepared for transport. Thank you! Cindy LOCKSTITCH ZIPPER SETTER Time Documentation
[2021-08-17] MEDS: fentaNYL 2,500 MCG in Sodium Chloride 0.9% 200 ML IV SCH ×3 (13:12→23:03)
[2021-08-17] MEDS: Famotidine 20 MG/2 ML SDV IVPUSH SCH (13:48)
[2021-08-17] MEDS: Dexamethasone 4 MG/ML SDV IVPUSH SCH (13:50)
[2021-08-17] MEDS: Norepinephrine 4 MG in Dextrose 5% in Water 246 ML IV SCH ×4 (13:52→19:59)
[2021-08-18] MEDS: Norepinephrine 4 MG in Dextrose 5% in Water 246 ML IV SCH ×8 (00:19→22:09)
[2021-08-18] MEDS: Dexamethasone 4 MG/ML SDV IVPUSH SCH (00:49)
[2021-08-18] MEDS: fentaNYL 2,500 MCG in Sodium Chloride 0.9% 200 ML IV SCH ×3 (04:02→18:25)
[2021-08-18] MEDS: Albuterol/Ipratropium 3.0-0.5 MG/3 ML Neb Soln NEB PRN ×4 (04:18→20:02)
[2021-08-18] MEDS: propofoL 100 ML IV SCH ×2 (08:12→09:41)
[2021-08-18] MEDS: Famotidine 20 MG/2 ML SDV IVPUSH SCH (08:12)
[2021-08-18] MEDS: Enoxaparin 100 MG/1 ML Syringe SUBCUT SCH ×2 (08:12→20:37)
[2021-08-18] MEDS ORDERED: Furosemide 20 MG/2 ML VIAL IVPUSH ONE (11:41)
[2021-08-18] MEDS ORDERED: Sodium Polystyrene Sulfonate 15 GM/60 ML Susp 60 ML Bot RECTAL ONE (11:41)
[2021-08-18] MEDS ORDERED: Sodium Polystyrene Sulfonate 15 GM/60 ML Susp 60 ML Bot PO SCH (11:45)
[2021-08-18] MEDS ORDERED: Sodium Polystyrene Sulfonate 15 GM/60 ML Susp 60 ML Bot NGTUBE SCH ×2 (12:02→16:00)
[2021-08-18] MEDS: Dexamethasone 10 MG/ML SDV IVPUSH SCH (12:32)
--- NOTE | 2021-08-18 13:09 | PCM.PN ---
- General Info Date of Service: 08/18/21 Admission Dx/Problem (Free Text): Admission Diagnosis/Problem Admission Diagnosis/Problem Hypoxia Subjective Update: This is an 81-year-old male who presented to ED on 08/11/2021 with low oxygen saturations and known positive COVID-19 diagnosis. Patient reports he been sick for about a week and noted cough, diarrhea, shortness of breath, and oxygen saturations of 86% on room air. He did receive the Pfizer vaccine. he was intubated yesterday. He is now on ventilator and sedation Blood pressure 112/58 Oxygen saturation greater than 90% - Review of Systems Systems Review Comment:: Unable to obtain due to being on ventilator and sedation - Patient Data Vitals - Most Recent: Last Vital Signs Temp 37.3 C 08/18/21 12:00 Pulse 64 08/18/21 12:01 Resp 25 H 08/18/21 12:01 BP 112/58 L 08/18/21 12:01 Pulse Ox 95 08/18/21 12:01 Weight - Most Recent: 86.183 kg I&O - Last 24 Hours: Intake & Output 08/17/21 08/18/21 08/18/21 22:59 06:59 14:59 Intake Total 143 881 90 Output Total 435 540 285 Balance -292 341 -195 Lab Results Last 24 Hours: Laboratory Results - last 24 hr 08/17/21 08/17/21 08/18/21 Range/Units 05:55 22:41 06:11 WBC 22.00 H (4.23-9.07) K/mm3 RBC 5.01 (4.63-6.08) M/mm3 Hgb 14.4 (13.7-17.5) gm/dl Hct 44.4 (40.1-51.0) % MCV 88.6 D (79.0-92.2) fl MCH 28.7 (25.7-32.2) pg MCHC 32.4 (32.2-35.5) g/dl RDW Std Deviation 43.2 (35.1-43.9) fL Plt Count 304 (163-337) K/mm3 MPV 10.9 (9.4-12.3) fl Neut % (Auto) 96.7 H (34.0-67.9) % Lymph % (Auto) 0.8 L (21.8-53.1) % [place] % (Auto) 2.1 L (5.3-12.2) % Eos % (Auto) 0 L (0.8-7.0) Baso % (Auto) 0.0 L (0.1-1.2) % Neut # (Auto) 21.26 H (1.78-5.38) K/mm3 Lymph # (Auto) 0.17 L (1.32-3.57) K/mm3 [place] # (Auto) 0.47 (0.30-0.82) K/mm3 Eos # (Auto) 0.00 L (0.04-0.54) K/mm3 Baso # (Auto) 0.01 (0.01-0.08) K/mm3 Manual Slide Review Abnormal smear Puncture Site ABG pH (7.35-7.45) ABG pCO2 (35.0-45.0) mmHg ABG pO2 (80.0-100.0) mmHg ABG HCO3 (22.0-26.0) meq/L ABG O2 Saturation (96.0-97.0) % ABG Base Excess (-2-2.0) Gaetano Test A-a Gradient mmHg O2 Delivery Device FiO2 (21.00-100.00) % Tidal Volume cc PEEP cmH20 Sodium (136-145) mEq/L Potassium (3.5-5.1) mEq/L Chloride (98-107) mEq/L Carbon Dioxide (21-32) mEq/L Anion Gap (5-15) BUN (7-18) mg/dL Creatinine (0.7-1.3) mg/dL Est Cr Clr Drug Dosing mL/min Estimated GFR (MDRD) (>60) mL/min BUN/Creatinine Ratio (14-18) Glucose (70-99) mg/dL POC Glucose 282 H (70-99) mg/dL Calcium (8.5-10.1) mg/dL Magnesium (1.8-2.4) mg/dL Total Bilirubin (0.2-1.0) mg/dL AST (15-37) U/L ALT (16-63) U/L Alkaline Phosphatase (46-116) U/L C-Reactive Protein (<1.0) mg/dL Total Protein (6.4-8.2) g/dl Albumin (3.4-5.0) g/dl Globulin gm/dL Albumin/Globulin Ratio (1-2) Procalcitonin 0.10 H ng/mL 08/18/21 08/18/21 Range/Units 06:11 10:25 WBC (4.23-9.07) K/mm3 RBC (4.63-6.08) M/mm3 Hgb (13.7-17.5) gm/dl Hct (40.1-51.0) % MCV (79.0-92.2) fl MCH (25.7-32.2) pg MCHC (32.2-35.5) g/dl RDW Std Deviation (35.1-43.9) fL Plt Count (163-337) K/mm3 MPV (9.4-12.3) fl Neut % (Auto) (34.0-67.9) % Lymph % (Auto) (21.8-53.1) % [place] % (Auto) (5.3-12.2) % Eos % (Auto) (0.8-7.0) Baso % (Auto) (0.1-1.2) % Neut # (Auto) (1.78-5.38) K/mm3 Lymph # (Auto) (1.32-3.57) K/mm3 [place] # (Auto) (0.30-0.82) K/mm3 Eos # (Auto) (0.04-0.54) K/mm3 Baso # (Auto) (0.01-0.08) K/mm3 Manual Slide Review Puncture Site Rt radial ABG pH 7.30 L (7.35-7.45) ABG pCO2 47.7 H (35.0-45.0) mmHg ABG pO2 79.0 L (80.0-100.0) mmHg ABG HCO3 22.6 (22.0-26.0) meq/L ABG O2 Saturation 94.2 L (96.0-97.0) % ABG Base Excess -3.7 L (-2-2.0) Gaetano Test Positive A-a Gradient 360 mmHg O2 Delivery Device Ventilator FiO2 70.00 (21.00-100.00) % Tidal Volume 510.0 cc PEEP 10.0 cmH20 Sodium 131 L (136-145) mEq/L Potassium 6.0 H (3.5-5.1) mEq/L Chloride 100 (98-107) mEq/L Carbon Dioxide 24 (21-32) mEq/L Anion Gap 13.0 (5-15) BUN 46 H (7-18) mg/dL Creatinine 1.9 H (0.7-1.3) mg/dL Est Cr Clr Drug Dosing 29.50 mL/min Estimated GFR (MDRD) 34 (>60) mL/min BUN/Creatinine Ratio 24.2 H (14-18) Glucose 290 H (70-99) mg/dL POC Glucose (70-99) mg/dL Calcium 7.4 L (8.5-10.1) mg/dL Magnesium 2.5 H (1.8-2.4) mg/dL Total Bilirubin 0.7 (0.2-1.0) mg/dL AST 20 (15-37) U/L ALT 39 (16-63) U/L Alkaline Phosphatase 65 (46-116) U/L C-Reactive Protein 20.0 H* (<1.0) mg/dL Total Protein 5.6 L (6.4-8.2) g/dl Albumin 2.2 L (3.4-5.0) g/dl Globulin 3.4 gm/dL Albumin/Globulin Ratio 0.7 L (1-2) Procalcitonin ng/mL Med Orders - Current: Current Medications Acetaminophen (Acetaminophen 325 Mg Tab) 650 mg PO Q4H PRN PRN Reason: Pain (Mild 1-3)/fever Last Admin: 08/13/21 22:23 Dose: 650 mg Documented by: Albuterol (Albuterol 6.7 Gm Inhaler) 0 gm INH Q2H PRN PRN Reason: SOB/wheezing Albuterol/Ipratropium (Albuterol/Ipratropium 3.0-0.5 Mg/3 Ml Neb Soln) 3 ml NEB QIDRT PRN PRN Reason: Shortness Of Breath/wheezing Last Admin: 08/18/21 08:03 Dose: 3 ml Documented by: Dexamethasone (Dexamethasone 10 Mg/Ml Sdv) 6 mg IVPUSH Q12H [facility] Last Admin: 08/18/21 12:32 Dose: 6 mg Documented by: Enoxaparin Sodium (Enoxaparin 100 Mg/1 Ml Syringe) 90 mg SUBCUT BID SANDER Last Admin: 08/18/21 08:12 Dose: 90 mg Documented by: Famotidine (Famotidine 20 Mg/2 Ml Sdv) 20 mg IVPUSH DAILY [facility]ER Last Admin: 08/18/21 08:12 Dose: 20 mg Documented by: Propofol (Diprivan 100 Ml) 100 mls @ 12.703 mls/hr IV TITRATE SANDER; Protocol Last Admin: 08/18/21 09:41 Dose: 12 mcg/kg/min, 6.097 mls/hr Documented by: Diltiazem HCl 100 mg/ Sodium (Chloride) 100 mls @ 5 mls/hr IV TITRATE SANDER; Protocol Last Admin: 08/17/21 12:22 Dose: 5 mg/hr, 5 mls/hr Documented by: Fentanyl 2,500 mcg/ Sodium (Chloride) 250 mls @ 1.25 mls/hr IV TITRATE SANDER; Protocol Last Admin: 08/18/21 10:43 Dose: 4 mcg/hr, 0.4 mls/hr Documented by: Norepinephrine Bitartrate 4 mg (/ Dextrose/Water) 250 mls @ 7.5 mls/hr IV TITRATE SANDER; Protocol Last Admin: 08/18/21 12:48 Dose: 8 mcg/min, 30 mls/hr Documented by: Lorazepam (Lorazepam 2 Mg/Ml Sdv) 0.5 mg IVPUSH Q6H PRN PRN Reason: Anxiety Last Admin: 08/17/21 09:00 Dose: 0.5 mg Documented by: Ondansetron HCl (Ondansetron 4 Mg/2 Ml Sdv) 4 mg IV Q6H PRN PRN Reason: Nausea/Vomiting Sodium Chloride (Sodium Chloride 0.9% 10 Ml Syringe) 10 ml FLUSH ASDIRECTED PRN PRN Reason: Keep Vein Open Last Admin: 08/11/21 16:21 Dose: 10 ml Documented by: Sodium Chloride (Sodium Chloride 0.9% 10 Ml Syringe) 10 ml FLUSH ONETIME PRN PRN Reason: IV FLUSH Sodium Polystyrene Sulfonate (Sodium Polystyrene Sulfonate 15 Gm/60 Ml Susp 60 Ml Bot) 15 gm NGTUBE Q4H SANDER Discontinued Medications Albuterol/Ipratropium (Albuterol/Ipratropium 3.0-0.5 Mg/3 Ml Neb Soln) 3 ml NEB ONETIME ONE Stop: 08/12/21 04:10 Last Admin: 08/12/21 04:19 Dose: 3 ml Documented by: Baricitinib (Baricitinib 2 Mg Tab) 2 mg PO DAILY SANDER Stop: 08/27/21 09:01 Last Admin: 08/17/21 11:12 Dose: Not Given Documented by: Benzonatate (Benzonatate 100 Mg Cap) 100 mg PO TID PRN PRN Reason: Cough Last Admin: 08/13/21 22:24 Dose: 100 mg Documented by: Dexamethasone (Dexamethasone 10 Mg/Ml Sdv) 6 mg IVPUSH ONETIME ONE Stop: 08/11/21 17:13 Last Admin: 08/11/21 17:42 Dose: 6 mg Documented by: Dexamethasone (Dexamethasone 10 Mg/Ml Sdv) 6 mg IVPUSH Q24H [facility]ER Stop: 08/15/21 19:01 Last Admin: 08/12/21 19:51 Dose: 6 mg Documented by: Dexamethasone (Dexamethasone 4 Mg Tab) 6 mg PO Q24H [facility]ER Stop: 08/20/21 17:01 Last Admin: 08/16/21 16:14 Dose: 6 mg Documented by: Dexamethasone (Dexamethasone 4 Mg/Ml Sdv) 6 mg IVPUSH Q12H [facility] Last Admin: 08/18/21 00:49 Dose: 6 mg Documented by: Diltiazem HCl (Diltiazem 50 Mg/10 Ml Sdv) 20 mg IVPUSH ONETIME ONE Stop: 08/17/21 10:39 Last Admin: 08/17/21 10:47 Dose: 20 mg Documented by: Diltiazem HCl (Diltiazem 50 Mg/10 Ml Sdv) Confirm Administered Dose 50 mg .ROUTE .STK-MED ONE Stop: 08/17/21 10:40 Last Admin: 08/17/21 10:46 Dose: Not Given Documented by: Enoxaparin Sodium (Enoxaparin 40 Mg/0.4 Ml Syringe) 40 mg SUBCUT BEDTIME [facility] Last Admin: 08/14/21 22:02 Dose: 40 mg Documented by: Famotidine (Famotidine 20 Mg Tab) 20 mg PO BEDTIME [facility] Last Admin: 08/17/21 00:06 Dose: Not Given Documented by: Furosemide (Furosemide 20 Mg/2 Ml Vial) 20 mg IVPUSH ONETIME ONE Stop: 08/18/21 11:42 Last Admin: 08/18/21 11:53 Dose: 20 mg Documented by: Guaifenesin (Guaifenesin 600 Mg Tab.Er) 600 mg PO BID [facility] Last Admin: 08/17/21 21:40 Dose: Not Given Documented by: Hydrochlorothiazide (Hydrochlorothiazide 12.5 Mg Cap) 12.5 mg PO DAILY [facility] Stop: 08/15/21 09:01 Last Admin: 08/13/21 09:25 Dose: 12.5 mg Documented by: Remdesivir 200 mg/ Sodium (Chloride) 250 mls @ 250 mls/hr IV ONETIME ONE Stop: 08/11/21 17:13 Last Admin: 08/11/21 17:42 Dose: 250 mls/hr Documented by: Remdesivir 100 mg/ Sodium (Chloride) 100 mls @ 100 mls/hr IV Q24H [facility] Stop: 08/15/21 19:59 Last Admin: 08/12/21 19:52 Dose: 100 mls/hr Documented by: Remdesivir 100 mg/ Sodium (Chloride) 100 mls @ 100 mls/hr IV Q24H [facility] Stop: 08/15/21 17:59 Last Admin: 08/15/21 16:06 Dose: 100 mls/hr Documented by: Sodium Chloride (Normal Saline) 100 mls @ 75 mls/hr IV ASDIRECTED [facility] Stop: 08/17/21 12:00 Last Admin: 08/17/21 10:46 Dose: 75 mls/hr Documented by: Sodium Chloride (Normal Saline) Confirm Administered Dose 1,000 mls @ as directed .ROUTE .STK-MED ONE Stop: 08/17/21 09:32 Last Admin: 08/17/21 10:46 Dose: Not Given Documented by: Propofol (Diprivan 100 Ml) Confirm Administered Dose 100 mls @ as directed . ROUTE .STK-MED ONE Stop: 08/17/21 10:14 Last Admin: 08/17/21 10:49 Dose: Not Given Documented by: Influenza Virus Vaccine (Flu Vacc Bb0162(65up)/Mf59c/Pf 60 Mcg/0.5 Ml Syringe) 60 mcg IM .ONCE ONE Stop: 08/13/21 13:01 Iopamidol (Iopamidol 755 Mg/Ml 100 Ml Bottle) 100 ml IVPUSH ONETIME ONE Stop: 08/17/21 08:51 Last Admin: 08/17/21 17:54 Dose: Not Given Documented by: Lisinopril (Lisinopril 10 Mg Tab) 10 mg PO DAILY [facility] Stop: 08/15/21 09:01 Last Admin: 08/13/21 09:25 Dose: 10 mg Documented by: Loperamide HCl (Loperamide 2 Mg Cap) 4 mg PO ONETIME ONE Stop: 08/11/21 15:52 Last Admin: 08/11/21 16:20 Dose: 4 mg Documented by: Midazolam HCl (Midazolam 1 Mg/Ml 5 Ml Sdv) 5 mg .ROUTE .STK-MED ONE Stop: 08/17/21 09:36 Midazolam HCl (Midazolam 1 Mg/Ml 2 Ml Sdv) 2.5 mg IVPUSH ONETIME ONE Stop: 08/17/21 12:41 Last Admin: 08/17/21 13:11 Dose: 2.5 mg Documented by: Midazolam HCl (Midazolam 1 Mg/Ml 2 Ml Sdv) Confirm Administered Dose 4 mg .ROUTE .STK-MED ONE Stop: 08/17/21 12:43 Last Admin: 08/17/21 12:55 Dose: Not Given Documented by: Phenylephrine HCl (Phenylephrine 1% 10 Mg/Ml Sdv) 10 mg .ROUTE .STK-MED ONE Stop: 08/17/21 09:36 Polyethylene Glycol (Polyethylene Glycol 3350 Powder 17 Gm Packet) 17 gm PO ONETIME ONE Stop: 08/13/21 17:48 Last Admin: 08/13/21 18:36 Dose: 17 gm Documented by: Potassium Chloride (Potassium Chloride 20 Meq Tab.Er) 40 meq PO BID [facility] Stop: 08/14/21 09:01 Last Admin: 08/13/21 22:24 Dose: 40 meq Documented by: Propofol (Propofol 200 Mg/20 Ml Sdv) 200 mg .ROUTE .STK-MED ONE Stop: 08/17/21 09:36 Propofol (Propofol 200 Mg/20 Ml Sdv) 200 mg .ROUTE .STK-MED ONE Stop: 08/17/21 09:36 Rocuronium [place] (Rocuronium 50 Mg/5 Ml Vial) 50 mg .ROUTE .STK-MED ONE Stop: 08/17/21 09:36 Rocuronium [place] (Rocuronium 50 Mg/5 Ml Vial) Confirm Administered Dose 50 mg .ROUTE .STK-MED ONE Stop: 08/17/21 11:03 Last Admin: 08/17/21 11:09 Dose: Not Given Documented by: Rocuronium [place] (Rocuronium 50 Mg/5 Ml Vial) 50 mg IVPUSH ONETIME ONE Stop: 08/17/21 11:09 Last Admin: 08/17/21 11:09 Dose: 50 mg Documented by: Senna/Docusate Sodium (Docusate Sodium/Sennosides 50-8.6 Mg Tab) 1 tab PO BID PRN PRN Reason: Constipation Last Admin: 08/14/21 08:30 Dose: 1 tab Documented by: Sodium Polystyrene Sulfonate (Sodium Polystyrene Sulfonate 15 Gm/60 Ml Susp 60 Ml Bot) 15 gm RECTAL NOW ONE Stop: 08/18/21 11:42 Sodium Polystyrene Sulfonate (Sodium Polystyrene Sulfonate 15 Gm/60 Ml Susp 60 Ml Bot) 15 gm PO Q4H [facility]ER Stop: 08/18/21 15:46 Last Admin: 08/18/21 11:53 Dose: 15 gm Documented by: Sodium Polystyrene Sulfonate (Sodium Polystyrene Sulfonate 15 Gm/60 Ml Susp 60 Ml Bot) 15 gm NGTUBE Q4H [facility]ANDER Stop: 08/18/21 15:46 Succinylcholine Chloride (Succinylcholine 200 Mg/10 Ml Mdv) 200 mg .ROUTE .STK-MED ONE Stop: 08/17/21 09:36 Trazodone HCl (Trazodone 50 Mg Tab) 50 mg PO BEDTIME PRN PRN Reason: Insomnia Last Admin: 08/15/21 23:51 Dose: 50 mg Documented by: Zinc Sulfate (Zinc Sulfate 220 Mg Cap) 220 mg PO DAILY [facility] Last Admin: 08/17/21 11:12 Dose: Not Given Documented by: - Exam Urinary Catheter Total Time: 1Days 1Hours Physical Findings Comments:: General: On ventilator and sedation HEENT: Pupils Equal, Pupils Reactive. No: Scleral Icterus Neck: No JVD, No Thyromegaly. No: JVD Lungs: Decreased Breath Sounds, Crackles Cardiovascular: Regular Rhythm, Tachycardia GI/Abdominal Exam: Normal Bowel Sounds, Soft, No Organomegaly, No Distention Extremities: Normal Inspection, No Pedal Edema Skin: Warm, Dry, Intact Neurological: Unable to complete due to being on ventilator and sedation Psy/Mental Status: Other (Unable to complete due to being on ventilator and sedation) - Patient Data Lab Results Last 24 hrs: Laboratory Results - last 24 hr 08/17/21 08/17/21 08/18/21 Range/Units 05:55 22:41 06:11 WBC 22.00 H (4.23-9.07) K/mm3 RBC 5.01 (4.63-6.08) M/mm3 Hgb 14.4 (13.7-17.5) gm/dl Hct 44.4 (40.1-51.0) % MCV 88.6 D (79.0-92.2) fl MCH 28.7 (25.7-32.2) pg MCHC 32.4 (32.2-35.5) g/dl RDW Std Deviation 43.2 (35.1-43.9) fL Plt Count 304 (163-337) K/mm3 MPV 10.9 (9.4-12.3) fl Neut % (Auto) 96.7 H (34.0-67.9) % Lymph % (Auto) 0.8 L (21.8-53.1) % [place] % (Auto) 2.1 L (5.3-12.2) % Eos % (Auto) 0 L (0.8-7.0) Baso % (Auto) 0.0 L (0.1-1.2) % Neut # (Auto) 21.26 H (1.78-5.38) K/mm3 Lymph # (Auto) 0.17 L (1.32-3.57) K/mm3 [place] # (Auto) 0.47 (0.30-0.82) K/mm3 Eos # (Auto) 0.00 L (0.04-0.54) K/mm3 Baso # (Auto) 0.01 (0.01-0.08) K/mm3 Manual Slide Review Abnormal smear Puncture Site ABG pH (7.35-7.45) ABG pCO2 (35.0-45.0) mmHg ABG pO2 (80.0-100.0) mmHg ABG HCO3 (22.0-26.0) meq/L ABG O2 Saturation (96.0-97.0) % ABG Base Excess (-2-2.0) Gaetano Test A-a Gradient mmHg O2 Delivery Device FiO2 (21.00-100.00) % Tidal Volume cc PEEP cmH20 Sodium (136-145) mEq/L Potassium (3.5-5.1) mEq/L Chloride (98-107) mEq/L Carbon Dioxide (21-32) mEq/L Anion Gap (5-15) BUN (7-18) mg/dL Creatinine (0.7-1.3) mg/dL Est Cr Clr Drug Dosing mL/min Estimated GFR (MDRD) (>60) mL/min BUN/Creatinine Ratio (14-18) Glucose (70-99) mg/dL POC Glucose 282 H (70-99) mg/dL Calcium (8.5-10.1) mg/dL Magnesium (1.8-2.4) mg/dL Total Bilirubin (0.2-1.0) mg/dL AST (15-37) U/L ALT (16-63) U/L Alkaline Phosphatase (46-116) U/L C-Reactive Protein (<1.0) mg/dL Total Protein (6.4-8.2) g/dl Albumin (3.4-5.0) g/dl Globulin gm/dL Albumin/Globulin Ratio (1-2) Procalcitonin 0.10 H ng/mL 08/18/21 08/18/21 Range/Units 06:11 10:25 WBC (4.23-9.07) K/mm3 RBC (4.63-6.08) M/mm3 Hgb (13.7-17.5) gm/dl Hct (40.1-51.0) % MCV (79.0-92.2) fl MCH (25.7-32.2) pg MCHC (32.2-35.5) g/dl RDW Std Deviation (35.1-43.9) fL Plt Count (163-337) K/mm3 MPV (9.4-12.3) fl Neut % (Auto) (34.0-67.9) % Lymph % (Auto) (21.8-53.1) % [place] % (Auto) (5.3-12.2) % Eos % (Auto) (0.8-7.0) Baso % (Auto) (0.1-1.2) % Neut # (Auto) (1.78-5.38) K/mm3 Lymph # (Auto) (1.32-3.57) K/mm3 [place] # (Auto) (0.30-0.82) K/mm3 Eos # (Auto) (0.04-0.54) K/mm3 Baso # (Auto) (0.01-0.08) K/mm3 Manual Slide Review Puncture Site Rt radial ABG pH 7.30 L (7.35-7.45) ABG pCO2 47.7 H (35.0-45.0) mmHg ABG pO2 79.0 L (80.0-100.0) mmHg ABG HCO3 22.6 (22.0-26.0) meq/L ABG O2 Saturation 94.2 L (96.0-97.0) % ABG Base Excess -3.7 L (-2-2.0) Gaetano Test Positive A-a Gradient 360 mmHg O2 Delivery Device Ventilator FiO2 70.00 (21.00-100.00) % Tidal Volume 510.0 cc PEEP 10.0 cmH20 Sodium 131 L (136-145) mEq/L Potassium 6.0 H (3.5-5.1) mEq/L Chloride 100 (98-107) mEq/L Carbon Dioxide 24 (21-32) mEq/L Anion Gap 13.0 (5-15) BUN 46 H (7-18) mg/dL Creatinine 1.9 H (0.7-1.3) mg/dL Est Cr Clr Drug Dosing 29.50 mL/min Estimated GFR (MDRD) 34 (>60) mL/min BUN/Creatinine Ratio 24.2 H (14-18) Glucose 290 H (70-99) mg/dL POC Glucose (70-99) mg/dL Calcium 7.4 L (8.5-10.1) mg/dL Magnesium 2.5 H (1.8-2.4) mg/dL Total Bilirubin 0.7 (0.2-1.0) mg/dL AST 20 (15-37) U/L ALT 39 (16-63) U/L Alkaline Phosphatase 65 (46-116) U/L C-Reactive Protein 20.0 H* (<1.0) mg/dL Total Protein 5.6 L (6.4-8.2) g/dl Albumin 2.2 L (3.4-5.0) g/dl Globulin 3.4 gm/dL Albumin/Globulin Ratio 0.7 L (1-2) Procalcitonin ng/mL Result Diagrams: 08/18/21 06:11 08/18/21 06:11 Sepsis Event Note - Evaluation Sepsis Screening Result: Severe Sepsis Risk - Focused Exam Vital Signs: Vital Signs Temp Temp Pulse Resp BP BP BP 08/18/21 12:01 64 25 H 112/58 L 08/18/21 12:00 37.3 C 61 28 H 08/18/21 11:46 62 28 H 115/49 L 08/18/21 11:45 59 L 28 H 08/18/21 11:32 08/18/21 11:31 61 26 H 116/53 L 08/18/21 11:30 60 26 H 08/18/21 11:16 61 26 H 112/54 L 08/18/21 11:15 60 26 H 08/18/21 11:01 63 26 H 112/49 L 08/18/21 11:00 62 26 H 08/18/21 10:46 62 26 H 121/50 L 08/18/21 10:45 64 26 H 08/18/21 10:30 64 26 H 115/48 L 08/18/21 10:29 59 L 26 H 08/18/21 10:15 67 26 H 117/50 L 08/18/21 10:14 64 26 H 08/18/21 10:01 62 26 H 08/18/21 10:00 66 26 H 115/46 L 08/18/21 09:59 62 26 H 08/18/21 09:45 68 26 H 118/47 L 08/18/21 09:44 65 26 H 08/18/21 09:30 70 26 H 121/49 L 08/18/21 09:29 26 H 08/18/21 09:15 72 26 H 120/44 L 08/18/21 09:14 66 26 H 08/18/21 09:01 68 26 H 08/18/21 09:00 73 26 H 121/45 L 08/18/21 08:59 68 26 H 08/18/21 08:45 73 26 H 122/44 L 08/18/21 08:44 71 26 H 08/18/21 08:30 70 26 H 125/50 L 08/18/21 08:29 68 26 H 08/18/21 08:22 63 28 H 112/55 L 08/18/21 08:21 60 26 H 08/18/21 08:15 53 L 26 H 109/47 L 08/18/21 08:14 52 L 26 H 08/18/21 08:09 08/18/21 08:01 51 L 26 H 08/18/21 08:00 36.2 C 53 L 26 H 126/58 L 08/18/21 07:59 52 L 26 H 08/18/21 07:45 53 L 26 H 123/56 L 08/18/21 07:44 52 L 26 H 08/18/21 07:30 54 L 26 H 129/56 L 08/18/21 07:29 52 L 26 H 08/18/21 07:15 54 L 26 H 132/56 L 08/18/21 07:14 53 L 26 H 08/18/21 07:01 52 L 26 H 08/18/21 07:00 36.6 C 53 L 26 H 134/60 134/60 08/18/21 06:59 52 L 26 H 08/18/21 06:45 54 L 26 H 136/61 08/18/21 06:44 52 L 26 H 08/18/21 06:30 53 L 26 H 138/64 08/18/21 06:29 53 L 26 H 08/18/21 06:15 50 L 23 H 119/60 08/18/21 06:14 50 L 26 H 08/18/21 06:01 55 L 26 H 08/18/21 06:00 36.9 C 54 L 26 H 95/50 L 95/50 L 08/18/21 05:59 53 L 26 H 08/18/21 05:45 66 26 H 100/52 L 08/18/21 05:44 52 L 26 H 08/18/21 05:30 52 L 26 H 115/58 L 08/18/21 05:29 48 L 26 H 08/18/21 05:15 52 L 26 H 100/54 L 08/18/21 05:14 52 L 26 H 08/18/21 05:01 55 L 26 H 108/51 L 08/18/21 05:00 36.7 C 55 L 26 H 100/54 L 08/18/21 04:45 53 L 26 H 129/62 08/18/21 04:44 52 L 26 H 08/18/21 04:30 53 L 26 H 118/56 L 08/18/21 04:29 53 L 26 H 08/18/21 04:18 08/18/21 04:15 51 L 26 H 118/62 08/18/21 04:14 51 L 26 H 08/18/21 04:01 56 L 26 H 117/57 L 08/18/21 04:00 36.8 C 51 L 26 H 118/62 08/18/21 03:46 56 L 26 H 139/62 08/18/21 03:45 54 L 26 H 08/18/21 03:31 53 L 26 H 140/73 08/18/21 03:30 54 L 26 H 08/18/21 03:16 56 L 26 H 137/61 08/18/21 03:15 51 L 26 H 08/18/21 03:01 56 L 26 H 137/64 08/18/21 03:00 36.8 C 55 L 26 H 139/62 08/18/21 02:46 56 L 26 H 137/61 08/18/21 02:00 37.0 C 26 H 132/59 L Pulse Ox Pulse Ox 08/18/21 12:01 95 08/18/21 12:00 91 L 08/18/21 11:46 95 08/18/21 11:45 92 L 08/18/21 11:32 95 08/18/21 11:31 95 08/18/21 11:30 91 L 08/18/21 11:16 94 L 08/18/21 11:15 91 L 08/18/21 11:01 94 L 08/18/21 11:00 92 L 08/18/21 10:46 94 L 08/18/21 10:45 90 L 08/18/21 10:30 94 L 08/18/21 10:29 92 L 08/18/21 10:15 94 L 08/18/21 10:14 90 L 08/18/21 10:01 93 L 08/18/21 10:00 94 L 08/18/21 09:59 92 L 08/18/21 09:45 94 L 08/18/21 09:44 92 L 08/18/21 09:30 94 L 08/18/21 09:29 08/18/21 09:15 93 L 08/18/21 09:14 94 L 08/18/21 09:01 93 L 08/18/21 09:00 93 L 08/18/21 08:59 92 L 08/18/21 08:45 93 L 08/18/21 08:44 92 L 08/18/21 08:30 93 L 08/18/21 08:29 92 L 08/18/21 08:22 98 08/18/21 08:21 93 L 08/18/21 08:15 90 L 08/18/21 08:14 88 L 08/18/21 08:09 91 L 08/18/21 08:01 95 08/18/21 08:00 94 L 08/18/21 07:59 94 L 08/18/21 07:45 93 L 08/18/21 07:44 93 L 08/18/21 07:30 95 08/18/21 07:29 94 L 08/18/21 07:15 95 08/18/21 07:14 94 L 08/18/21 07:01 95 08/18/21 07:00 95 08/18/21 06:59 94 L 08/18/21 06:45 95 08/18/21 06:44 95 08/18/21 06:30 96 08/18/21 06:29 95 08/18/21 06:15 94 L 08/18/21 06:14 95 08/18/21 06:01 94 L 08/18/21 06:00 95 08/18/21 05:59 95 08/18/21 05:45 94 L 08/18/21 05:44 95 08/18/21 05:30 96 08/18/21 05:29 96 08/18/21 05:15 94 L 08/18/21 05:14 95 08/18/21 05:01 95 08/18/21 05:00 95 08/18/21 04:45 93 L 08/18/21 04:44 93 L 08/18/21 04:30 92 L 08/18/21 04:29 93 L 08/18/21 04:18 93 L 08/18/21 04:15 93 L 08/18/21 04:14 94 L 08/18/21 04:01 96 08/18/21 04:00 85 L 08/18/21 03:46 95 08/18/21 03:45 93 L 08/18/21 03:31 95 08/18/21 03:30 94 L 08/18/21 03:16 95 08/18/21 03:15 92 L 08/18/21 03:01 95 08/18/21 03:00 93 L 08/18/21 02:46 94 L 08/18/21 02:00 94 L - Problem List Review Problem List Initiated/Reviewed/Updated: Yes - My Orders Last 24 Hours: My Active Orders 08/18/21 12:12 Renew/Continue Urinary Catheter [OM.PC] Routine 08/18/21 16:00 Sodium Polystyrene Sulfonate [Kayexalate] 15 gm [id number] Q4H 08/18/21 18:00 BASIC METABOLIC PANEL,BMP [CHEM] Routine 08/19/21 05:00 MAGNESIUM [CHEM] Routine PHOSPHORUS [CHEM] Routine - Assessment Assessment:: Admission assessment - 08/13/2021 * This is an 81-year-old male who presented to ED on 08/11/2021 with low oxygen saturations and known positive COVID-19 diagnosis * History of hypertension * Reports he been sick for about a week and noted cough, diarrhea, shortness of breath, and oxygen saturations of 86% on room air. * He did receive the Pfizer vaccine. * He was requiring 6 L with saturations of 86 to 87%. * Labs are obtained: * WBC of 9.66. * Hemoglobin 15.5. * Platelet count 206,000. * Neutrophils are elevated 89.1%. * D-dimer is 1.32. * CRP is 26.2. * Sodium is 138. * Potassium is low at 3.3. * Chloride 97. * Carbon dioxide 28. * Anion gap is 16.3. * BUN is 37. Creatinine 1.8. GFR is 36. * Glucose is 114. * Calcium is 8.0. * Magnesium is 1.9. * Total bilirubin 0.6. * AST is 63, ALT 42, alkaline phosphatase 35. * Albumin is 2.9. * Total protein 7.1. * He is given dexamethasone and remdesivir in the ED. * Chest x-ray is obtained showing patchy areas of increased density within both sides of the chest. Difficult to completely exclude Covid pneumonia. Please correlate with patient's symptoms. Other findings are noted to be incidental. * Patient was requiring admission and unfortunately our facility and every other facility in the state were on diversion. * Remained for approximately 2 days in the emergency room with worsening saturations. * He was shifted to a nonrebreather and ultimately started on high flow oxygen. * Ultimately a bed in our facility does open up and the patient is admitted to the medical surgical floor inpatient with telemetry for further management of his COVID-19 pneumonia and hypoxia. 08/14/2021 This is an 81-year-old male admitted to the floor for worsening Covid pneumonia symptoms. He continues on dexamethasone and remdesivir. Today we discussed baricitinib and he agreed to proceed with this treatment. He remains on high flow oxygen at 60 L with an FiO2 of 90%. Labs today show WBC of 11.82. Hemoglobin is 14.6. Platelet 208,000. Neutrophils are elevated at 91.8%. Sodium is 135. Potassium is up to 4.0. Chloride is 101. Carbon dioxide 26. Anion gap is 12.0. BUN is 35. Creatinine is improved to 1.2. GFR is up to 58. Glucose is 147. Calcium 7.9. Magnesium 1.9. Total bilirubin 0.5. AST is 58, ALT 45, alkaline phosphatase 37. CRP is 8.3. Protein 5.7. Albumin is down to 2.3. Procalcitonin from yesterday returned at 0.81. Overall lab values have improved. We will continue current treatment plan. Unknown length of stay due to severity of symptoms. 08/15/2021 This is an 81-year-old male who presented to ED on 08/11/2021 with low oxygen saturations and known positive COVID-19 diagnosis. Still complains of shortness of breath. She is on high flow 60 L or nonrebreather D-dimer 136 Creatinine 1.1, GFR > 60 CRP trending down to 6.0 08/16/2021 This is an 81-year-old male who presented to ED on 08/11/2021 with low oxygen saturations and known positive COVID-19 diagnosis. Still complains of shortness of breath. He otherwise denies fever, chills, chest pain, or diarrhea. She is on high flow 60 L CRP is trending to 5.2 today 08/17/21 81-year-old male presents to the emergency department on 08/11/2021 with complaints of low oxygen saturations and positive Covid testing. Patient does h ave a history of Covid vaccination with the Pfizer vaccine. Patient with significant tachypnea and hypoxia this morning despite being on high flow oxygen at 60 L and 95% as well as a nonrebreather mask at 15 L. O2 saturations were in the 70s. Patient was also tachypneic in the 40s and was very anxious pulling at his nonrebreather mask. DuoNeb and Ativan 0.5 mg IV were ordered on the patient as well as a CTA of the lungs. Case was discussed with Dr. Castillo and the patient's and was subsequently intubated. Chest x-ray was completed after intubation which showed good placement of ET tube. Patient was then moved to the emergency department. Propofol was initiated for sedation. EKG was completed and patient was in a new onset atrial fibrillation with RVR in the 150s to the 160s. 10 mg Cardizem bolus was ordered and repeated. Patient's heart rate came down to the 100s to 1 teens. Cardizem drip was then started on the patient. Patient is anticoagulated on Lovenox 90 mg twice daily.Hematology reveals a WBC of 12.09 which is down from 14.1, D-dimer 0.96 which is down from 1.36, Chemistry reveals a sodium of 133, potassium 4.7, chloride 102, carbon dioxide 21, anion gap 14.7, BUN 32, creatinine 1.2, glucose 158, calcium 7.8, magnesium 2.1, total bilirubin 1.1, AST 35, ALT 48, C-reactive protein down to 4.3, ABGs post intubation on FiO2 of 100% reveal a pH of 7.29, PCO2 47.4, PO2 71.0, bicarb 21.9, O2 saturation 89.5 with a base excess of -4.5. Nursing staff notifies me that the patient's propofol drip is being titrated however he does still seem to be uncomfortable coughing against the tube as well as moving his hands. I have ordered for them to give him Versed 2.5 mg and to start a fentanyl drip on the patient. Patient subsequently converted back into a normal sinus rhythm after being on a Cardizem drip for a short time. Patient then went hypotensive with systolic blood pressures in the 50s. Cardizem drip was discontinued. Consulted with Dr. Castillo who agreed the patient should be started on Levophed drip. 08/18/21 This is an 81-year-old male who presented to ED on 08/11/2021 with low oxygen saturations and known positive COVID-19 diagnosis. Patient reports he been sick for about a week and noted cough, diarrhea, shortness of breath, and oxygen saturations of 86% on room air. He did receive the Pfizer vaccine. he was intubated yesterday. He is now on ventilator and sedation Blood pressure 112/58 Oxygen saturation greater than 90% he is on Levophed as needed to maintain MAP 65 He is on propofol drip We will started him on OG tube feeding today - Plan Plan:: COVID-19 Hypoxia Elevated d-dimer Elevated C-reactive protein COVID-19 vaccine series completed. * Patient is intubated * Airborne/contact precautions * As needed DuoNebs * As needed albuterol MDI * RT consultation * O2 as needed with goal saturations of 90 to 95% * Telemetry * Continuous pulse oximetry * Prone whenever able * Nursing staff to reposition every 2 hours * Lovenox 90 mg Bid * Daily labs * Every 48 hour D-dimer * Check procalcitonin * 6 mg dexamethasone daily for 10 total days * Remdesivir daily for 5 total days * Baricitinib * PT/OT evaluation-on hold * Case management/social work for discharge planning * Start baricitinib today for a total of 14 days or until discharge * Awaiting bed placement at a higher level of care * Propofol drip * Fentanyl drip * ABGs * Levophed drip * OG tube feeding (since 08/18), check mag and phos Scalp laceration * From prior fall on 08/08/2021 * Remove in 7 to 10 days from initial injury Hypokalemia, resolved * Monitor labs HTN (hypertension) * Hold home BP meds * Monitor blood pressure New onset atrial fibrillation with RVR * Cardizem drip-pt converted and drip was discontinued * HR is controlled * lovenox 90mg bid Code status: Full code PCP: Dr. Gilbert DVT prophylaxis: Lovenox Social: Patient resides in a home in [place] with his . Disposition: Transfer to a higher level of care due to intubation. Unknown length of stay due to intubation and severity of Covid. Length of stay greater then 96 hours due to slow response to treatment. I spoke with Chon to provide information about baricitinib. I offered the "fax sheet for patients and parents/caregivers, for baricitinib" to read and review. I stated that therapy has been approved by an emergency use authorization process and has not fully been FDA reviewed or approved. I shared potential risks from the therapy including increased risk for serious i nfections, anaphylaxis, and reaction to medication. I discussed there are other potential treatment options that are currently not FDA approved to treat COVID- 19. Offered opportunity to ask questions and all questions were answered. Chon voiced understanding and agreed to proceed with treatment. Prognosis: very guarded.
--- NOTE | 2021-08-18 15:08 | CR ---
Chest: Frontal view of the chest was obtained. Comparison: Prior chest x-ray of 08/17/21. Endotracheal tube is seen. Tip lies above the reny. Feeding tube is noted coursing into the stomach lying within the antrum. Right central line is seen with tip lying within the superior vena cava. Guidewire is seen extending more distally out of the tip of the catheter. Increased density is noted within both lung bases. These findings are stable from prior exam. Heart size and mediastinum are stable. Impression: 1. Right central line. Tip lies within the superior vena cava. Guidewire extends more distally as an incidental note. 2. Satisfactory endotracheal tube as well as feeding tube. 3. Stable parenchymal densities within both sides of the chest. Diagnostic code #3
--- NOTE | 2021-08-18 17:15 | CR ---
Chest: Frontal view of the chest was obtained. Comparison: Prior chest x-ray performed earlier on the same day (2:12 PM). Heart size and mediastinum are stable. Patchy areas of increased density are seen within both sides of the chest, worse on the left side. Endotracheal tube is seen with tip lying slightly below the inferior level of the clavicles. Feeding tube is seen with tip lying in the area of the stomach antrum. Bony structures show nothing acute. Prior study showed a right-sided central line which is no longer appreciated on this exam. Impression: 1. Satisfactory position of endotracheal tube and feeding tube. 2. Diffuse increased density within both sides of the chest, worse on the left side. 3. Previous right-sided central line on prior chest x-ray is not seen on current study. Diagnostic code #3
[2021-08-19] MEDS: propofoL 100 ML IV SCH ×3 (00:02→13:52)
[2021-08-19] MEDS: Dexamethasone 10 MG/ML SDV IVPUSH SCH ×2 (00:45→13:48)
[2021-08-19] MEDS: fentaNYL 2,500 MCG in Sodium Chloride 0.9% 200 ML IV SCH ×2 (02:21→10:05)
[2021-08-19] MEDS: Albuterol/Ipratropium 3.0-0.5 MG/3 ML Neb Soln NEB PRN ×2 (05:44→07:43)
[2021-08-19] MEDS: Norepinephrine 4 MG in Dextrose 5% in Water 246 ML IV SCH ×2 (06:30)
[2021-08-19] MEDS: Famotidine 20 MG/2 ML SDV IVPUSH SCH (08:24)
--- NOTE | 2021-08-19 13:21 | CR ---
Chest: Frontal view of the chest is obtained. Comparison: Prior chest x-ray of 08/18/21. Heart size and mediastinum are within normal limits. Patchy increased density is seen within both sides of the chest, worse on the left side which is stable. Feeding tube is seen with tip being stable in position. Nasogastric tube is also seen with tip lying within the stomach antrum. Endotracheal tube is also stable. Bony structures are unchanged. Impression: 1. Satisfactory position of endotracheal tube, feeding tube and nasogastric tube. 2. Other portions of the chest also remains stable. Diagnostic code #3
--- NOTE | 2021-08-19 15:20 | PCM.DCSUM1 ---
Discharge Summary - Hospital Course Free Text/Narrative:: COVID-19 Hypoxia Elevated d-dimer Elevated C-reactive protein COVID-19 vaccine series completed. * Patient is intubated * Airborne/contact precautions * As needed DuoNebs * As needed albuterol MDI * RT consultation * O2 goal saturations of 90 to 95% * ICU * Continuous pulse oximetry * Prone whenever able * Nursing staff to reposition every 2 hours * Lovenox 90 mg QD * Daily labs * Every 48 hour D-dimer * Check procalcitonin * 6 mg dexamethasone daily for 10 total days * Remdesivir daily for 5 total days * Baricitinib 2mg po x 14 days * PT/OT evaluation-on hold * Case management/social work for discharge planning * Propofol drip * Fentanyl drip * ABGs * Levophed and vasopressin drip * OG tube feeding (since 08/18), check mag and phos Scalp laceration * From prior fall on 08/08/2021 * Remove in 7 to 10 days from initial injury Hypokalemia, resolved * Monitor labs HTN (hypertension) * Hold home BP meds * Monitor blood pressure * BP is low now New onset atrial fibrillation with RVR * Cardizem drip-pt converted and drip was discontinued * HR is controlled * lovenox 90mg qd ROSALINDA Creatinine 2.1 today, it was 1.2 on 08/17 Most likely due to hypotension and the Covid infection Avoid nephrotoxic meds Repeat the renal function in morning Needs nephrology At this moment I believe patient needs business specialist, nephrology and infectious disease specialist. Eventually there is a bed available at the [facility] this afternoon. spoke to business specialist Dr. Ellington at [facility] who is kind enough to accept this patient patient will be transferred to [facility] by air. Diagnosis: Stroke: No - Discharge Data Discharge Date: 08/19/21 Discharge Disposition: DC/Tfer to Acute Hospital 02 Condition: Good - Referral to Home Health Primary Care Physician: Amador Gilbert MD - Patient Summary/Data Consults: Consultations 08/13/21 12:44 Consult to Case Management/Rail Transportation Operator [CONS] Routine 08/13/21 12:46 OT Evaluation and Treatment [CONS] Routine PT Evaluation and Treatment [CONS] Routine Respiratory Care Assess and Treatment [CONS] Routine - Discharge Plan *PRESCRIPTION DRUG MONITORING PROGRAM REVIEWED*: Not Applicable *COPY OF PRESCRIPTION DRUG MONITORING REPORT IN PATIENT NICHELLE: Not Applicable Prescriptions/Med Rec: Baricitinib [Olumiant] 2 mg PO DAILY #14 tablet Home Medications: Home Meds Albuterol [Proventil HFA] 1 puff INH Q2H PRN inhaler 08/19/21 [Rx] Albuterol/Ipratropium [DuoNeb 3.0-0.5 MG/3 ML] 3 ml NEB QIDRT PRN neb 08/19/21 [Rx] Baricitinib [Olumiant] 2 mg PO DAILY #14 tablet 08/19/21 [Rx] Enoxaparin [Lovenox] 90 mg SUBCUT Q24H syringe 08/19/21 [Rx] Famotidine [Pepcid] 20 mg IVPUSH DAILY sdv 08/19/21 [Rx] LORazepam [Ativan] 0.5 mg IVPUSH Q6H PRN vial 08/19/21 [Rx] Norepinephrine [Levophed] 4 mg IV TITRATE sdv 08/19/21 [Rx] Ondansetron [Zofran] 4 mg IV Q6H PRN vial 08/19/21 [Rx] Vasopressin 100 units IV TITRATE mdv 08/19/21 [Rx] dexAMETHasone [Decadron] 6 mg IVPUSH Q12H sdv 08/19/21 [Rx] propofoL [Diprivan 100 ML] See Protocol IV TITRATE vial 08/19/21 [Rx] Oxygen Therapy Mode: Mechanical Ventilation Patient Handouts: COVID-19 Frequently Asked Questions, COVID-19, 10 Things You Can Do to Manage Your COVID-19 Symptoms at Home - [facility] (05/15/2021), Sutures, Bridgman, or Adhesive Wound Closure, [id number], Sepsis, Self Care, Adult Forms: ED Department Discharge Referrals: Amador Gilbert MD [Primary Care Provider] - - Discharge Summary/Plan Comment DC Time >30 min.: Yes Total # of Minutes for Discharge Time: 90mins - General Info Date of Service: 08/19/21 Admission Dx/Problem (Free Text: Admission Diagnosis/Problem Admission Diagnosis/Problem Hypoxia Subjective Update: This is an 81-year-old male who presented to ED on 08/11/2021 with low oxygen saturations and known positive COVID-19 diagnosis. Patient reports he been sick for about a week and noted cough, diarrhea, shortness of breath, and oxygen saturations of 86% on room air. He did receive the Pfizer vaccine. he was intubated yesterday. He is now on ventilator and sedation Blood pressure 112/58 Oxygen saturation greater than 90% - Review of Systems Systems Review Comment: Unable to complete due to being on ventilator and sedation - Patient Data Vitals - Most Recent: Last Vital Signs Temp 36.8 C 08/19/21 12:00 Pulse 67 08/19/21 11:00 Resp 30 H 08/19/21 12:00 BP 91/54 L 08/19/21 12:00 Pulse Ox 93 L 08/19/21 12:52 Weight - Most Recent: 85.304 kg I&O - Last 24 hours: Intake & Output 08/19/21 08/19/21 08/19/21 06:59 14:59 22:59 Intake Total 1307 190 Output Total 450 185 Balance 857 5 Lab Results - Last 24 hrs: Laboratory Results - last 24 hr 08/18/21 08/19/21 08/19/21 Range/Units 18:40 05:51 05:57 WBC 18.80 H (4.23-9.07) K/mm3 RBC 4.76 (4.63-6.08) M/mm3 Hgb 13.6 L (13.7-17.5) gm/dl Hct 42.5 (40.1-51.0) % MCV 89.3 (79.0-92.2) fl MCH 28.6 (25.7-32.2) pg MCHC 32.0 L (32.2-35.5) g/dl RDW Std Deviation 43.6 (35.1-43.9) fL Plt Count 308 (163-337) K/mm3 MPV 10.9 (9.4-12.3) fl Neut % (Auto) 95.6 H (34.0-67.9) % Lymph % (Auto) 0.7 L (21.8-53.1) % [place] % (Auto) 3.2 L (5.3-12.2) % Eos % (Auto) 0 L (0.8-7.0) Baso % (Auto) 0.0 L (0.1-1.2) % Neut # (Auto) 17.96 H (1.78-5.38) K/mm3 Lymph # (Auto) 0.14 L (1.32-3.57) K/mm3 [place] # (Auto) 0.61 (0.30-0.82) K/mm3 Eos # (Auto) 0.00 L (0.04-0.54) K/mm3 Baso # (Auto) 0.00 L (0.01-0.08) K/mm3 Manual Slide Review Abnormal smear D-Dimer, Quantitative 2.34 H (0.19-0.50) mg/L Puncture Site ABG pH (7.35-7.45) ABG pCO2 (35.0-45.0) mmHg ABG pO2 (80.0-100.0) mmHg ABG HCO3 (22.0-26.0) meq/L ABG O2 Saturation (96.0-97.0) % ABG Base Excess (-2-2.0) A-a Gradient mmHg O2 Delivery Device FiO2 (21.00-100.00) % Tidal Volume cc PEEP cmH20 Sodium 135 L (136-145) mEq/L Potassium 5.8 H (3.5-5.1) mEq/L Chloride 103 (98-107) mEq/L Carbon Dioxide 24 (21-32) mEq/L Anion Gap 13.8 (5-15) BUN 53 H (7-18) mg/dL Creatinine 2.0 H (0.7-1.3) mg/dL Est Cr Clr Drug Dosing 28.03 mL/min Estimated GFR (MDRD) 32 (>60) mL/min BUN/Creatinine Ratio 26.5 H (14-18) Glucose 276 H (70-99) mg/dL Calcium 7.7 L (8.5-10.1) mg/dL Phosphorus (2.6-4.7) mg/dL Magnesium (1.8-2.4) mg/dL Total Bilirubin (0.2-1.0) mg/dL AST (15-37) U/L ALT (16-63) U/L Alkaline Phosphatase (46-116) U/L Total Protein (6.4-8.2) g/dl Albumin (3.4-5.0) g/dl Globulin gm/dL Albumin/Globulin Ratio (1-2) 08/19/21 08/19/21 08/19/21 Range/Units 05:57 05:57 08:12 WBC (4.23-9.07) K/mm3 RBC (4.63-6.08) M/mm3 Hgb (13.7-17.5) gm/dl Hct (40.1-51.0) % MCV (79.0-92.2) fl MCH (25.7-32.2) pg MCHC (32.2-35.5) g/dl RDW Std Deviation (35.1-43.9) fL Plt Count (163-337) K/mm3 MPV (9.4-12.3) fl Neut % (Auto) (34.0-67.9) % Lymph % (Auto) (21.8-53.1) % [place] % (Auto) (5.3-12.2) % Eos % (Auto) (0.8-7.0) Baso % (Auto) (0.1-1.2) % Neut # (Auto) (1.78-5.38) K/mm3 Lymph # (Auto) (1.32-3.57) K/mm3 [place] # (Auto) (0.30-0.82) K/mm3 Eos # (Auto) (0.04-0.54) K/mm3 Baso # (Auto) (0.01-0.08) K/mm3 Manual Slide Review D-Dimer, Quantitative (0.19-0.50) mg/L Puncture Site Rt radial ABG pH 7.31 L (7.35-7.45) ABG pCO2 48.6 H (35.0-45.0) mmHg ABG pO2 69.0 L (80.0-100.0) mmHg ABG HCO3 23.9 (22.0-26.0) meq/L ABG O2 Saturation 93.2 L (96.0-97.0) % ABG Base Excess -2.2 L (-2-2.0) A-a Gradient 333 mmHg O2 Delivery Device Ventilator FiO2 65.00 (21.00-100.00) % Tidal Volume 510.0 cc PEEP 10.0 cmH20 Sodium 132 L (136-145) mEq/L Potassium 5.9 H (3.5-5.1) mEq/L Chloride 101 (98-107) mEq/L Carbon Dioxide 25 (21-32) mEq/L Anion Gap 11.9 (5-15) BUN 62 H (7-18) mg/dL Creatinine 2.1 H (0.7-1.3) mg/dL Est Cr Clr Drug Dosing 26.69 mL/min Estimated GFR (MDRD) 30 (>60) mL/min BUN/Creatinine Ratio 29.5 H (14-18) Glucose 329 H (70-99) mg/dL Calcium 7.4 L (8.5-10.1) mg/dL Phosphorus 4.2 (2.6-4.7) mg/dL Magnesium 2.7 H 2.8 H (1.8-2.4) mg/dL Total Bilirubin 0.5 (0.2-1.0) mg/dL AST 16 (15-37) U/L ALT 31 (16-63) U/L Alkaline Phosphatase 50 (46-116) U/L Total Protein 5.3 L (6.4-8.2) g/dl Albumin 2.0 L (3.4-5.0) g/dl Globulin 3.3 gm/dL Albumin/Globulin Ratio 0.6 L (1-2) Med Orders - Current: Current Medications Acetaminophen (Acetaminophen 325 Mg Tab) 650 mg PO Q4H PRN PRN Reason: Pain (Mild 1-3)/fever Last Admin: 08/13/21 22:23 Dose: 650 mg Documented by: Albuterol (Albuterol 6.7 Gm Inhaler) 0 gm INH Q2H PRN PRN Reason: SOB/wheezing Albuterol/Ipratropium (Albuterol/Ipratropium 3.0-0.5 Mg/3 Ml Neb Soln) 3 ml NEB QIDRT PRN PRN Reason: Shortness Of Breath/wheezing Last Admin: 08/19/21 07:43 Dose: 3 ml Documented by: Dexamethasone (Dexamethasone 10 Mg/Ml Sdv) 6 mg IVPUSH Q12H SANDER Last Admin: 08/19/21 13:48 Dose: 6 mg Documented by: Enoxaparin Sodium (Enoxaparin 100 Mg/1 Ml Syringe) 90 mg SUBCUT Q24H SANDER Famotidine (Famotidine 20 Mg/2 Ml Sdv) 20 mg IVPUSH DAILY SANDER Last Admin: 08/19/21 08:24 Dose: 20 mg Documented by: Propofol (Diprivan 100 Ml) 100 mls @ 12.703 mls/hr IV TITRATE SANDER; Protocol Last Admin: 08/19/21 13:52 Dose: 12 mcg/kg/min, 6.097 mls/hr Documented by: Fentanyl 2,500 mcg/ Sodium (Chloride) 250 mls @ 1.25 mls/hr IV TITRATE SANDER; Protocol Last Titration: 08/19/21 13:44 Dose: 510 mcg/hr, 51 mls/hr Documented by: Norepinephrine Bitartrate 4 mg (/ Dextrose/Water) 250 mls @ 7.5 mls/hr IV TITRATE SANDER; Protocol Last Titration: 08/19/21 12:22 Dose: 3 mcg/min, 11.25 mls/hr Documented by: Vasopressin 100 units/ Sodium (Chloride) 100 mls @ 0.6 mls/hr IV TITRATE SANDER; Protocol Last Titration: 08/19/21 08:09 Dose: 0 units/min, 0 mls/hr Documented by: Lorazepam (Lorazepam 2 Mg/Ml Sdv) 0.5 mg IVPUSH Q6H PRN PRN Reason: Anxiety Last Admin: 08/17/21 09:00 Dose: 0.5 mg Documented by: Ondansetron HCl (Ondansetron 4 Mg/2 Ml Sdv) 4 mg IV Q6H PRN PRN Reason: Nausea/Vomiting Sodium Chloride (Sodium Chloride 0.9% 10 Ml Syringe) 10 ml FLUSH ASDIRECTED PRN PRN Reason: Keep Vein Open Last Admin: 08/11/21 16:21 Dose: 10 ml Documented by: Sodium Chloride (Sodium Chloride 0.9% 10 Ml Syringe) 10 ml FLUSH ONETIME PRN PRN Reason: IV FLUSH Discontinued Medications Albuterol/Ipratropium (Albuterol/Ipratropium 3.0-0.5 Mg/3 Ml Neb Soln) 3 ml NEB ONETIME ONE Stop: 08/12/21 04:10 Last Admin: 08/12/21 04:19 Dose: 3 ml Documented by: Baricitinib (Baricitinib 2 Mg Tab) 2 mg PO DAILY SANDER Stop: 08/27/21 09:01 Last Admin: 08/17/21 11:12 Dose: Not Given Documented by: Benzonatate (Benzonatate 100 Mg Cap) 100 mg PO TID PRN PRN Reason: Cough Last Admin: 08/13/21 22:24 Dose: 100 mg Documented by: Dexamethasone (Dexamethasone 10 Mg/Ml Sdv) 6 mg IVPUSH ONETIME ONE Stop: 08/11/21 17:13 Last Admin: 08/11/21 17:42 Dose: 6 mg Documented by: Dexamethasone (Dexamethasone 10 Mg/Ml Sdv) 6 mg IVPUSH Q24H SANDER Stop: 08/15/21 19:01 Last Admin: 08/12/21 19:51 Dose: 6 mg Documented by: Dexamethasone (Dexamethasone 4 Mg Tab) 6 mg PO Q24H SANDER Stop: 08/20/21 17:01 Last Admin: 08/16/21 16:14 Dose: 6 mg Documented by: Dexamethasone (Dexamethasone 4 Mg/Ml Sdv) 6 mg IVPUSH Q12H [facility] Last Admin: 08/18/21 00:49 Dose: 6 mg Documented by: Diltiazem HCl (Diltiazem 50 Mg/10 Ml Sdv) 20 mg IVPUSH ONETIME ONE Stop: 08/17/21 10:39 Last Admin: 08/17/21 10:47 Dose: 20 mg Documented by: Diltiazem HCl (Diltiazem 50 Mg/10 Ml Sdv) Confirm Administered Dose 50 mg .ROUTE .STK-MED ONE Stop: 08/17/21 10:40 Last Admin: 08/17/21 10:46 Dose: Not Given Documented by: Enoxaparin Sodium (Enoxaparin 40 Mg/0.4 Ml Syringe) 40 mg SUBCUT BEDTIME [facility] Last Admin: 08/14/21 22:02 Dose: 40 mg Documented by: Enoxaparin Sodium (Enoxaparin 100 Mg/1 Ml Syringe) 90 mg SUBCUT BID [facility] Last Admin: 08/18/21 20:37 Dose: 90 mg Documented by: Famotidine (Famotidine 20 Mg Tab) 20 mg PO BEDTIME [facility] Last Admin: 08/17/21 00:06 Dose: Not Given Documented by: Furosemide (Furosemide 20 Mg/2 Ml Vial) 20 mg IVPUSH ONETIME ONE Stop: 08/18/21 11:42 Last Admin: 08/18/21 11:53 Dose: 20 mg Documented by: Guaifenesin (Guaifenesin 600 Mg Tab.Er) 600 mg PO BID [facility] Last Admin: 08/17/21 21:40 Dose: Not Given Documented by: Hydrochlorothiazide (Hydrochlorothiazide 12.5 Mg Cap) 12.5 mg PO DAILY [facility] Stop: 08/15/21 09:01 Last Admin: 08/13/21 09:25 Dose: 12.5 mg Documented by: Remdesivir 200 mg/ Sodium (Chloride) 250 mls @ 250 mls/hr IV ONETIME ONE Stop: 08/11/21 17:13 Last Admin: 08/11/21 17:42 Dose: 250 mls/hr Documented by: Remdesivir 100 mg/ Sodium (Chloride) 100 mls @ 100 mls/hr IV Q24H [facility] Stop: 08/15/21 19:59 Last Admin: 08/12/21 19:52 Dose: 100 mls/hr Documented by: Remdesivir 100 mg/ Sodium (Chloride) 100 mls @ 100 mls/hr IV Q24H [facility] Stop: 08/15/21 17:59 Last Admin: 08/15/21 16:06 Dose: 100 mls/hr Documented by: Sodium Chloride (Normal Saline) 100 mls @ 75 mls/hr IV ASDIRECTED [facility] Stop: 08/17/21 12:00 Last Admin: 08/17/21 10:46 Dose: 75 mls/hr Documented by: Sodium Chloride (Normal Saline) Confirm Administered Dose 1,000 mls @ as directed .ROUTE .STK-MED ONE Stop: 08/17/21 09:32 Last Admin: 08/17/21 10:46 Dose: Not Given Documented by: Propofol (Diprivan 100 Ml) Confirm Administered Dose 100 mls @ as directed .ROUTE .STK-MED ONE Stop: 08/17/21 10:14 Last Admin: 08/17/21 10:49 Dose: Not Given Documented by: Diltiazem HCl 100 mg/ Sodium (Chloride) 100 mls @ 5 mls/hr IV TITRATE [facility]; Protocol Last Admin: 08/17/21 12:22 Dose: 5 mg/hr, 5 mls/hr Documented by: Influenza Virus Vaccine (Flu Vacc Xx0901(65up)/Mf59c/Pf 60 Mcg/0.5 Ml Syringe) 60 mcg IM .ONCE ONE Stop: 08/13/21 13:01 Iopamidol (Iopamidol 755 Mg/Ml 100 Ml Bottle) 100 ml IVPUSH ONETIME ONE Stop: 08/17/21 08:51 Last Admin: 08/17/21 17:54 Dose: Not Given Documented by: Lisinopril (Lisinopril 10 Mg Tab) 10 mg PO DAILY SANDER Stop: 08/15/21 09:01 Last Admin: 08/13/21 09:25 Dose: 10 mg Documented by: Loperamide HCl (Loperamide 2 Mg Cap) 4 mg PO ONETIME ONE Stop: 08/11/21 15:52 Last Admin: 08/11/21 16:20 Dose: 4 mg Documented by: Midazolam HCl (Midazolam 1 Mg/Ml 5 Ml Sdv) 5 mg .ROUTE .STK-MED ONE Stop: 08/17/21 09:36 Midazolam HCl (Midazolam 1 Mg/Ml 2 Ml Sdv) 2.5 mg IVPUSH ONETIME ONE Stop: 08/17/21 12:41 Last Admin: 08/17/21 13:11 Dose: 2.5 mg Documented by: Midazolam HCl (Midazolam 1 Mg/Ml 2 Ml Sdv) Confirm Administered Dose 4 mg .ROUTE .STK-MED ONE Stop: 08/17/21 12:43 Last Admin: 08/17/21 12:55 Dose: Not Given Documented by: Phenylephrine HCl (Phenylephrine 1% 10 Mg/Ml Sdv) 10 mg .ROUTE .STK-MED ONE Stop: 08/17/21 09:36 Polyethylene Glycol (Polyethylene Glycol 3350 Powder 17 Gm Packet) 17 gm PO ONETIME ONE Stop: 08/13/21 17:48 Last Admin: 08/13/21 18:36 Dose: 17 gm Documented by: Potassium Chloride (Potassium Chloride 20 Meq Tab.Er) 40 meq PO BID [facility]ANDER Stop: 08/14/21 09:01 Last Admin: 08/13/21 22:24 Dose: 40 meq Documented by: Propofol (Propofol 200 Mg/20 Ml Sdv) 200 mg .ROUTE .STK-MED ONE Stop: 08/17/21 09:36 Propofol (Propofol 200 Mg/20 Ml Sdv) 200 mg .ROUTE .STK-MED ONE Stop: 08/17/21 09:36 Rocuronium [place] (Rocuronium 50 Mg/5 Ml Vial) 50 mg .ROUTE .STK-MED ONE Stop: 08/17/21 09:36 Rocuronium [place] (Rocuronium 50 Mg/5 Ml Vial) Confirm Administered Dose 50 mg .ROUTE .STK-MED ONE Stop: 08/17/21 11:03 Last Admin: 08/17/21 11:09 Dose: Not Given Documented by: Rocuronium [place] (Rocuronium 50 Mg/5 Ml Vial) 50 mg IVPUSH ONETIME ONE Stop: 08/17/21 11:09 Last Admin: 08/17/21 11:09 Dose: 50 mg Documented by: Senna/Docusate Sodium (Docusate Sodium/Sennosides 50-8.6 Mg Tab) 1 tab PO BID PRN PRN Reason: Constipation Last Admin: 08/14/21 08:30 Dose: 1 tab Documented by: Sodium Polystyrene Sulfonate (Sodium Polystyrene Sulfonate 15 Gm/60 Ml Susp 60 Ml Bot) 15 gm RECTAL NOW ONE Stop: 08/18/21 11:42 Last Admin: 08/18/21 14:26 Dose: Not Given Documented by: Sodium Polystyrene Sulfonate (Sodium Polystyrene Sulfonate 15 Gm/60 Ml Susp 60 Ml Bot) 15 gm PO Q4H [facility]ANDER Stop: 08/18/21 15:46 Last Admin: 08/18/21 11:53 Dose: 15 gm Documented by: Sodium Polystyrene Sulfonate (Sodium Polystyrene Sulfonate 15 Gm/60 Ml Susp 60 Ml Bot) 15 gm NGTUBE Q4H [facility] Stop: 08/18/21 15:46 Last Admin: 08/18/21 14:26 Dose: Not Given Documented by: Sodium Polystyrene Sulfonate (Sodium Polystyrene Sulfonate 15 Gm/60 Ml Susp 60 Ml Bot) 15 gm NGTUBE Q4H [facility] Last Admin: 08/18/21 17:32 Dose: 15 gm Documented by: Succinylcholine Chloride (Succinylcholine 200 Mg/10 Ml Mdv) 200 mg .ROUTE .STK- MED ONE Stop: 08/17/21 09:36 Trazodone HCl (Trazodone 50 Mg Tab) 50 mg PO BEDTIME PRN PRN Reason: Insomnia Last Admin: 08/15/21 23:51 Dose: 50 mg Documented by: Zinc Sulfate (Zinc Sulfate 220 Mg Cap) 220 mg PO DAILY [facility] Last Admin: 08/17/21 11:12 Dose: Not Given Documented by: - Exam Physical Findings Comments:: General: On ventilator and sedation HEENT: Pupils Equal, Pupils Reactive. No: Scleral Icterus Neck: No JVD, No Thyromegaly. No: JVD Lungs: Decreased Breath Sounds, Crackles Cardiovascular: Regular Rhythm, Tachycardia GI/Abdominal Exam: Normal Bowel Sounds, Soft, No Organomegaly, No Distention Extremities: Normal Inspection, No Pedal Edema Skin: Warm, Dry, Intact Neurological: Unable to complete due to being on ventilator and sedation Psy/Mental Status: Other (Unable to complete due to being on ventilator and sedation)
[2021-08-19] MEDS ORDERED: Enoxaparin 100 MG/1 ML Syringe SUBCUT SCH (21:00)
== END 2021-08-19 15:30 | DRG 208 ==
LOC: JD.ED 15:19 → JD.MS 08-13 11:57 → JD.ICU 08-17 10:26
PROVIDERS: ADMIT Family Medicine; ATTEND Family Medicine
PROC: 8E0ZXY6 Isolation (ICD-10-PCS; 2021-08-11)
PROC: XW033E5 Introduction of Remdesivir Anti-infective into Peripheral Vein, Percutaneous Approach, New Technology Group 5 (ICD-10-PCS; 2021-08-11)
PROC: 3E0333Z Introduction of Anti-inflammatory into Peripheral Vein, Percutaneous Approach (ICD-10-PCS; 2021-08-11)
PROC: XW0DXM6 Introduction of Baricitinib into Mouth and Pharynx, External Approach, New Technology Group 6 (ICD-10-PCS; 2021-08-11)
PROC: 5A1945Z Respiratory Ventilation, 24-96 Consecutive Hours (ICD-10-PCS; principal; 2021-08-17)
PROC: 0BH17EZ Insertion of Endotracheal Airway into Trachea, Via Natural or Artificial Opening (ICD-10-PCS; 2021-08-17)
DX: U07.1 COVID-19 (principal); J96.01 Acute respiratory failure with hypoxia; N17.9 Acute kidney failure, unspecified; Z79.899 Other long term (current) drug therapy; E87.6 Hypokalemia; I10 Essential (primary) hypertension; I48.91 Unspecified atrial fibrillation; Z79.01 Long term (current) use of anticoagulants; S01.01XA Laceration without foreign body of scalp, initial encounter; W18.30XA Fall on same level, unspecified, initial encounter; Y92.89 Other specified places as the place of occurrence of the external cause
CPT/HCPCS: 36415; 71045; 80053; 83735; 85025; 85379; 86140; 96374; 99285; A9270 ×3; J1100; J7050; 31500; 36600; 51702; 80048; 80076; 82803; 82947; 84100; 84145; 94002; 94003; 94640; 94667; 94668; 94762; 97110-GP; 97162-GP; 97530-GP; 99100; J0330; J1650; J1940; J2060; J2250; J2370; J2704; J3010; J3490; J7060; J7620-GY; J8540